=== PATIENT | female | born 2000 | race Caucasian/White ===

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

== ENCOUNTER 2022-10-06 19:49 | Emergency (ER) | payer BC, SELFPAY ==
[2022-10-06 19:50] VITALS: BP 123/65; PULSE 83; RESP 18; TEMP 36.6; O2SAT 100; BMI 27.4
--- NOTE | 2022-10-06 20:10 | CT_ITS ---
PROCEDURE INFORMATION: Exam: CT Abdomen And Pelvis With Contrast Exam date and time: 10/06/2022 8:47 PM Age: 22 years old Clinical indication: Abdominal pain; Additional info: Rlq pain TECHNIQUE: Imaging protocol: Computed tomography of the abdomen and pelvis with contrast. Radiation optimization: All CT scans at this facility use at least one of these dose optimization techniques: automated exposure control; mA and/or kV adjustment per patient size (includes targeted exams where dose is matched to clinical indication); or iterative reconstruction. Contrast material: ISOVUE; Contrast volume: 75 ml; Contrast route: IV; REPORTING DATA: Count of CT and Cardiac NM exams in prior 12 months: This patient has received 0 known CTs and 0 known cardiac nuclear medicine studies in the 12 months prior to the current study. COMPARISON: CR XR PELVIS 1-2V 02/22/2021 9:58 AM FINDINGS: Liver: Normal. No mass. Gallbladder and bile ducts: Normal. No calcified stones. No ductal dilation. Pancreas: Normal. No ductal dilation. Spleen: Normal. No splenomegaly. Adrenal glands: Normal. No mass. Kidneys and ureters: Normal. No hydronephrosis. Stomach and bowel: Unremarkable. No obstruction. No mucosal thickening. Appendix: The appendix is visualized and appears normal Intraperitoneal space: Unremarkable. No free air. No significant fluid collection. Vasculature: Unremarkable. No abdominal aortic aneurysm. Lymph nodes: Unremarkable. No enlarged lymph nodes. Urinary bladder: Unremarkable as visualized. Reproductive: Unremarkable as visualized. Bones/joints: Unremarkable. No acute fracture. Soft tissues: Unremarkable. IMPRESSION: No acute findings.
[2022-10-06 20:15] LABS: Microscopic, Urine URINE MICROSCOPIC (MICROSCOPIC)
[2022-10-06 20:17] LABS: Appearance,Urine CLEAR (Clear); Blood, Urine Negative (Negative); Color,Urine YELLOW (Yellow); Glucose,Urine (UA) Negative (Negative); Ketones,Urine Negative (Negative); Leukocyte Esterase,Urine Negative (Negative); Nitrate,Urine Negative (Negative); PH,Urine 5.5 (5.0-8.5); Protein,Urine TRACE (Negative); Specific Gravity, Urine >= 1.030 (1.005-1.030)
[2022-10-06 20:18] LABS: Bilirubin,Urine 1+ (Negative); Urine Pregnancy, HCG Qual. Negative (Negative)
[2022-10-06 20:31] LABS: Basophils % 0.3 % (0.1-2.0); Eosinophils % 0.6 % (0.1-12.0); Hemoglobin 11.5 g/dL (12.2-16.2); Lymphocytes # 2.3 K/mm3 (0.7-4.5); Mean Corpuscular Hemoglobin 24.6 pg (27.0-31.2); Mean Platelet Volume 7.6 fl (7.4-10.4); Monocytes # 0.3 K/mm3 (0.1-1.0); Monocytes % 4.5 % (1.7-9.3); Neutrophils # 3.9 K/mm3 (1.8-7.8); Neutrophils % 59.6 % (37.0-80.0); Platelet Count 271 K/mm3 (142-424); Red Blood Count 4.68 M/mm3 (4.20-5.40); Red Cell Distribution Width 16.9 % (11.5-17.5); White Blood Count 6.6 K/mm3 (4.5-13.0)
[2022-10-06 20:40] LABS: Alanine Aminotransferase 45 U/L (12-78); Albumin Level 4.5 g/dl (3.5-5.0); Albumin/Globulin Ratio 1.4 (1.1-1.8); Alkaline Phosphatase 140 U/L (38-126); Anion Gap 12.2 mEq/L (5-15); Aspartate Amino Transferase 46 U/L (14-36); Bilirubin,Total 0.3 mg/dl (0.2-1.3); Blood Urea Nitrogen 10 mg/dl (7-17); Calcium 8.8 mg/dl (8.4-10.2); Carbon Dioxide 24 mmol/L (22.0-30.0); Chloride 106 mmol/L (98-107); Creatinine Clearance Estimated 138 mL/min (50-200); Estimated Glomerular Filt Rate 107 ml/min (>60); GFR (African American) 129 ML/MIN (>60); Globulin 3.3 g/dL (1.3-3.2); Glucose 86 mg/dl (74-100); Lipase 71 U/L (23-300); Potassium 4.2 mmoL/L (3.5-5.1); Sodium 138 mmol/L (136-145); Total Protein,Serum 7.8 g/dl (6.3-8.2)
[2022-10-06 20:45] LABS: C-Reactive Protein 8.7 mg/L (0-4)
[2022-10-06 20:56] LABS: Procalcitonin 0.032 ng/mL (0.0-2.0)
[2022-10-06 21:00] VITALS: BP 120/66; PULSE 82; O2SAT 100
[2022-10-06 21:25] LABS: Bacteria,Urine Trace /lpf; WBC,Urine Occasional #/hpf (0-3)
[2022-10-06 21:30] VITALS: BP 115/56; PULSE 85; O2SAT 100
--- NOTE | 2022-10-06 22:00 | HMH.EDABDPAI ---
Discharge Plan Disposition Patient Disposition: Home, Self-Care Prescriptions Prescriptions: New ondansetron HCl 4 mg Tablet 4 mg PO Q8H PRN (Reason: Nausea) Qty: 20 0RF hyoscyamine sulfate [Levsin/SL] 0.125 mg tablet, sublingual 0.125 mg PO Q8H PRN (Reason: dyspepsia) Qty: 10 0RF No Action venlafaxine 37.5 mg capsule,extended release 24hr 37.5 mg PO DAILY etonogestrel-ethinyl estradiol [EluRyng] 0.12-0.015 mg/24 hr ring VAGINAL doxylamine-pyridoxine (vit B6) 1 EACH tablet,delayed release (DR/EC) 1 each PO TID Qty: 20 2RF Referrals Follow up/Referrals: Bubba Bhatt MD [Primary Care Provider] - See instructions Clinical Impressions Clinical Impression: Abdominal pain Instructions Patient Instructions: DI for Acute Abdominal Pain Discharge ED Provider: Matt (ED)Vineet Abdominal Pain HPI General Chief Complaint: Abdominal Pain Stated Complaint: Right side abdominal pain Time Seen by Provider: 10/06/22 21:45 Mode of Arrival: Ambulatory Source of Information: Patient, Significant Other and Medical Record Limitations: No Limitations Description of Symptoms (Recalled from ER Triage Doc. by RN): Pt seen by PCP yesterday with complaints of Right lower abd pain stated she may have early appendicitis. Pt states she has had episodes of vomiting since yesterday. History of Present Illness HPI narrative: pt has ongoing rt sided abd pain with episodes of vomiting - no fever or other c/o complaint: abdominal pain Onset (ago): day(s) Consistency: intermittent Location: RLQ Severity: moderate Associated symptoms: denies other symptoms Related Data Home Medications Medication Instructions Recorded Confirmed venlafaxine 37.5 mg 37.5 mg PO DAILY Depression 04/29/19 03/04/21 capsule,extended release 24 hr etonogestrel 0.12 mg-ethinyl ea vaginal 02/01/21 03/04/21 estradiol 0.015 mg/24 hr vaginal ring (EluRyng) Previous Rx's Medication Instructions Recorded doxylamine 10 mg-pyridoxine (vit 1 each PO TID #20 tabs 04/16/21 B6) 10 mg tablet,delayed release hyoscyamine sulfate 0.125 mg 0.125 mg PO Q8H PRN dyspepsia #10 10/06/22 sublingual tablet (Levsin/SL) tabs ondansetron HCl 4 mg tablet 4 mg PO Q8H PRN Nausea #20 tabs 10/06/22 Allergies Allergy/AdvReac Type Severity Reaction Status Date / Time No Known Allergies Allergy Verified 03/04/21 08:24 PFSH PFS Disclaimer: The information contained in this section may have been updated after the patient was seen, as this information can be updated by other users. Social History Smoking Status: Never smoker alcohol intake: never substance use type: denies use current occupational status: student Travel in the last 8 weeks: None household members: family ROS Obtained: Yes All systems reviewed & no additional complaints except as documented Physical Exam General General appearance: alert Head Head exam: normocephalic Eye Eye exam: Present PERRL and EOMI ENT ENT exam: Present normal oropharynx Neck Neck exam: Present trachea midline Respiratory Respiratory exam: Absent respiratory distress Cardiovascular Cardiovascular exam: Present regular rate Abdominal Exam Abdominal exam: Present soft and tenderness; Absent guarding or rebound Abdominal tenderness: Present RLQ and mild Extremities Exam Extremities exam: Present full ROM Neurological Exam Neurological exam: Present alert, oriented X3 and CN II-XII intact; Absent motor sensory deficit Psychiatric Psychiatric exam: Present normal affect Skin Skin exam: Absent rash Medical Decision Making Medical Records Medical records reviewed: Yes I reviewed the patient's medical records. William Inquiry Pt receiving controlled substance: No Vital Signs: 10/06/22 19:50 10/06/22 21:00 10/06/22 21:30 Temperature 97.8 F Temperature Source Oral Pulse Rate 82 85 Pulse Rate [Right] 83 Respiratory Rate 18 Blood Pressure 1
[2022-10-06 22:12] VITALS: BP 125/54; PULSE 80; RESP 18; TEMP 36.6; O2SAT 98
[2022-10-10 21:08] LABS: Pancreatic Amylase, S 31 U/L (14-55)
== END 2022-10-06 22:14 | disposition home or self-care (01) ==
PROVIDERS: Emergency Provider Emergency Medicine; PCP Family Medicine
DX: R10.31 Right lower quadrant pain (principal)
CPT/HCPCS: 74177; 80053; 81001; 81025; 82150; 83690; 84145; 85025; 86140; 96360; 99284; 99285; Q9967

== ENCOUNTER 2023-02-08 16:34 | Outpatient (CLI) | payer BC, SELFPAY ==
[2023-02-08 17:00] VITALS: BMI 24.3
== END 2023-02-08 17:07 | disposition home or self-care (01) ==
LOC: UTC.OUT 16:35
PROVIDERS: PCP Family Medicine; Visit Provider Nurse Practitioner Family
DX: Z11.1 Encounter for screening for respiratory tuberculosis (principal)
CPT/HCPCS: 86580

== ENCOUNTER 2024-06-30 14:59 | Outpatient (CLI) | payer BC, SELFPAY ==
--- NOTE | 2024-06-30 15:03 | XR_ITS ---
FINAL REPORT CLINICAL HISTORY: RT HAND PAIN..smashed hand while moving chair..shielded FINDINGS: RIGHT HAND Three views demonstrate no acute fracture or dislocation. The visualized joint spaces are normally aligned. The soft tissues are unremarkable. IMPRESSION: No acute bony abnormality. Reviewed, Interpreted and Dictated by Yolie Ramirez MD Transcribed by Karla Tierney Authenticated and [facility]
== END 2024-06-30 23:59 | disposition home or self-care (01) ==
LOC: RAD 15:01
PROVIDERS: PCP Nurse Practitioner Family; Visit Provider Nurse Practitioner Family
DX: M79.641 Pain in right hand (principal); G89.11 Acute pain due to trauma
CPT/HCPCS: 73130

== ENCOUNTER 2024-10-01 17:18 | Emergency (ER) | payer BC, SELFPAY ==
--- OUTSIDE RECORDS SUMMARY | 2024-09-02 06:30 | XMS_ITS ---
Author Organization [facility] [place] Address [address] [facility] [address] [facility] [address] [place] [address] Care Team Providers Care Central Sterile Tech Name Role Phone Dana Haile Primary Care Provider [phone] DANA HAILE Unavailable UnavailVidhi Manzo Unavailable [phone] Allergies No Known Allergies REASON FOR VISIT Medication follow up Medications Medication SIG (Take, Route, Frequency, Duration) Notes Start Date End Date Status busPIRone HCl 5 MG 1 tab(s) orally 2 ti mes a day; Duration: 90 days Active Escitalopram Oxalate 10 MG 1 tab(s) oral ly once a day; Duration: 90 days 06/17/2024 Active Norelgestromin-Eth Estradiol 150-35 MCG/24HR as directed Transdermal Active Social History Tobacco Use: Social History Observation Description Date Details (start date - stop date) Never Smoker NA - NA Tobacco Control (Standard) Question Answer Notes Tobacco use: Nonsmoker Vital Signs Temperature 97.7 degrees Fahrenheit 09/03/19 25 Heart Rate 80 /min 09/02/2024 Blood pressure systolic 104 mm Hg 09/03/19 25 Blood pressure diastolic 72 mm Hg 025 Height 5ft 3in in 09/02/2024 Weight 143 lbs 09/02/2024 BMI 25.33 kg/m2 09/02/2024 Encounters Encounter Location Date Provider Diagnosis [facility] [address] [place] [facility] [address] [place] [address] 09/02/2024 Vidhi Pemberton Depression with anxiety F41.8 Assessments Encounter Date Diagnosis (ICD Code) Assessment Notes Treatment Notes Treatment Clinical Notes Section Notes 09/02/2024 Depression with anxiety (ICD-10 - F41.8) Well controlled on current regimen. No changes made today. Discussed s/s of worsening mood/agitation that warrant FU. RTC in 3-4 months for routine med check or sooner prn Plan Of Treatment Medication Medication Name Sig Start Date Stop Date Notes busPIRone HCl 5 MG 1 tab(s) orally 2 ti mes a day; Duration: 90 days Escitalopram Oxalate 10 MG 1 tab(s) oral ly once a day; Duration: 90 days 06/17/2024 Treatment Notes Assessment Notes Depression with anxiety Well controlled on current regimen. No changes made today. Discussed s/s of worsening mood/agitation that warrant FU. RTC in 3-4 months for routine med check or sooner prn Next Appt Details Follow Up: 3 Months, Reason: Provider Name:Dana Padilla ce, 10/07/2024 10:45:00 AM, [address] [facility] [address] [facility], [address], [place], [address], Progress Notes * Cornel HARRISDOB:2000 (23 yo F)Acc No.[id number]:09/02/2024 Progress Notes Patient: Cornel ESPITIA Provider: Dawson Pemberton APRN :2000 A ge:23 Y S ex:Female Date:09/02/2024 Address:[address] [place] [address] , [id number] Pcp:Dana Haile Subjective: * Chief Complaints: * 1 . Medication follow up. * HPI: P sychology: Denies : high stress. D enies : sleep disturbances. D enies : appetite change. D enies : low energy level. D enies : depressed mood. D enies : feeling overwhelmed. D enies : sad or cry easily. D enies : thoughts of hurting self. Presents for FU on depression and anxiety. Reports mood is stable. Anxiety well controlled. One episode of feeling down and anxious around 2 months ago. Has been fine since. Pleased with current regimen. Feels well and has no concerns today. * ROS: C ARDIOLOGY: Reviewed, No Symptoms Reported: Y es. C ONSTITUTIONAL: no L oss of appetite. n o F ever. D ERMATOLOGY: no R saleem. G ASTROENTEROLOGY: no N ausea. n o V omiting. n o D iarrhea.?no C onstipation. N EUROLOGY: no H eadache. * Medical History: A nxiety, Depression, Anemia, Bicornuate uterus. * Surgical History: C section , Extraction of [place] Teeth , Vaginal with Breech . * Hospitalization/Major Diagno stic Procedure: [facility]- Childbirth Dec, [facility]- Childbirth Jan 07, 2024. * Family History: F ather: alive. M other: alive. P aternal Grand Father: . P aternal Grand Mother: . M aternal Grand Father: alive, Parkinson's Disease. M aternal Grand Mother: alive, Alzheimer's Disease. P aternal uncle: alive. P aternal aunt: alive. M aternal uncle: alive. M aternal aunt: alive. 2 sister(s) . 1 son(s) , 1 daughter(s) . . * Social History: R ecreational drug use: no. Exercise: yes, Walking. Home smoke detector use: yes. Caffeine: yes, frequency: occasional. Alcohol: no. Sexually active: yes. Travel outside [place]: no. Occupation: Employed. Tobacco Control (Standard) T obacco use: N onsmoker. * Medications: T aking Norelgestromin-Eth Estradiol 150-35 MCG/24HR Patch Weekly as directed Transdermal , Taking busPIRone HCl 5 MG Tablet 1 tab(s) orally 2 times a day , Taking Escitalopram Oxalate 10 MG Tablet 1 tab(s) orally once a day , Medication List reviewed and reconciled with the patient * Allergies: N .K.D.A. Objective: * Vitals: N urse: be, Pain: 0, Temp: 97.7, RR: 16, HR: 80, BP: 104/72, Ht: 5ft 3in, Wt: 143, BMI:25.33. * Examination: P sychology: General Appearance: N AD, pleasant. Grooming : a dequate. Eye contact : n ormal. Mood : p leasant. Heart: R egular Rate and Rhythm, no murmur, rubs or gallops. Lungs: L CTAB, No wheezes, crackles or rhonchi, Good air movement,. Abdomen: S oft, NTND, BSNA, No organomegaly or peritoneal signs.. Neurologic Exam: n o focal signs,, normal sensation, strength, Alert and oriented x 3. Assessment: * Assessment: 1. D epression with anxiety - F41.8 (Primary) Plan: * Treatment: * Follow Up: 3 Months * * Sign off status: Completed true * Provider: Dawson Pemberton APRN Date: 09/02/2024 Generated for Tracey noe/Inez/Julio Césaritting on: 10/01/2024 05:32 PM EDT History and Physical Notes * HPI (History of Present Illness) Category Sub-Category Detail Notes Category Not es Psychology depressed mood Presents for FU on depression and anxiety. Reports mood is stable. Anxiety well controlled. One episode of feeling down and anxious around 2 months ago. Has been fine since. Pleased with current regimen. Feels well and has no concerns today low energy level appetite change sleep disturbances high stress feeling overwhelmed sad or cry easily thoughts of hurting self Examination Category Sub-Category Detail Notes Category Not es Psychology Heart: Regular Rate and Rhythm, no murmur, rubs or gallops Lungs: LCTAB, No wheezes, c rackles or rhonchi, Good air movement, Abdomen: Soft, NTND, BSNA, No organomegaly or peritoneal signs. General Appearance: NAD, pleasant Neurologic Exam: no focal signs,, nor mal sensation, strength, Alert and oriented x 3 Grooming : adequate Eye contact : normal Mood : pleasant
--- OUTSIDE RECORDS SUMMARY | 2024-09-04 11:30 | XMS_ITS ---
Author Organization [facility] [place] Address [address] [place] [address] [place] [address] Care Team Providers Care Screwhead Stoner And Polisher Name Role Phone Dana Haile Primary Care Provider DANA HAILE Unavailable Unavaila Dana Delgado Unavailable [phone] Allergies No Known Allergies Results Component Value Reference Range Notes Rapid Strep Reviewed date:09/04/2024 04:47:45 PM Interpretation:Negative Performing Lab: Notes/Report: Negative Rapid screen Negative REASON FOR VISIT headache,chills,sore throat Medications Medication SIG (Take, Route, Frequency, Duration) Notes Start Date End Date Status Loratadine 10 MG 1 tablet Orally Once a day; Duration: 30 days 09/04/2024 Active Amoxicillin 875 MG 1 tablet Orally Twic e a day; Duration: 7 days 09/04/2024 Active busPIRone HCl 5 MG 1 tab(s) [...] Notes Tobacco use: Nonsmoker Vital Signs Temperature 97.8 degrees Fahrenheit 09/05/19 25 Heart Rate 78 /min 09/04/2024 Blood pressure systolic 112 mm Hg 09/05/19 25 Blood pressure diastolic 70 mm Hg 025 Height 5ft 3in in 09/04/2024 Weight 141.6 lbs 09/04/2024 BMI 25.08 kg/m2 09/04/2024 Encounters Encounter Location Date Provider Diagnosis [facility] [address] [place] [address] [place] [address] 09/04/2024 Dana Solano Sore throat J02.9 and Viral URI J06.9 Assessments Encounter Date Diagnosis (ICD Code) Assessment Notes Treatment Notes Treatment Clinical Notes Section Notes 09/04/2024 Sore throat (ICD-10 - J02.9) 09/04/2024 Viral URI (ICD-10 - J06.9) Reassurance. Discussed the etiology & expected course of a viral URI and discussed the rationale for not prescribing antibiotics. With patient leaving for vacation in two days prescribed Amoxicillin for her to have if her sore throat is not feeling better in 5 days. Continue supportive care with PRN antipyretics, OTC cough/cold meds, nasal saline rinses/Neti pot with distilled water, salt water gargles, cough drops, and humidifier. Encourage PO hydration. Patient must be fever and vomit free x 24 hours without fever reducing medications before going back to work. Discussed the signs and symptoms of worsening condition and need for reassessment in clinic or ED. Keep previously scheduled physical exam or f/u sooner PRN. Patient/family voice understanding and are agreeable to this plan. Plan Of Treatment Medication Medication Name Sig Start Date Stop Date Notes Loratadine 10 MG 1 tablet Orally Once a day; Duration: 30 days 09/04/2024 Amoxicillin 875 MG 1 tablet Orally Twic e a day; Duration: 7 days 09/04/2024 Treatment Notes Assessment Notes Viral URI Reassurance. Discuss ed the etiology & expected course of a viral URI and discussed the rationale for not prescribing antibiotics. With patient leaving for vacation in two days prescribed Amoxicillin for her to have if her sore throat is not feeling better in 5 days. Continue supportive care with PRN antipyretics, OTC cough/cold meds, nasal saline rinses/Neti pot with distilled water, salt water gargles, cough drops, and humidifier. Encourage PO hydration. Patient must be fever and vomit free x 24 hours without fever reducing medications before going back to work. Discussed the signs and symptoms of worsening condition and need for reassessment in clinic or ED. Keep previously scheduled physical exam or f/u sooner PRN. Patient/family voice understanding and are agreeable to this plan. Next Appt Details Follow Up: prn, Reason: Provider Name:Dana Padilla ce, 10/07/2024 10:45:00 AM, [address] [facility] [address], [address], [place], [address], Progress Notes * Cornel HARRISDOB:2000 (23 yo F)Acc No.[id number]:09/04/2024 Progress Notes Patient: Cornel ESPITIA Provider: MELY Murrell :2000 A ge:23 Y S ex:Female Date:09/04/2024 Address:[address] [place] [address] [address] [place], [id number] Pcp:Dana Haile Subjective: * Chief Complaints: * 1 . Headache,chills,sore throat. * HPI: g en: Patient presents with headaches, chills, sore throat, intermittent right ear pain, fatigue, malaise starting 2 days ago. She reports having rhinorrhea and intermittent watery eyes x 1 month. S he denies cough, fevers, n/v/d, abd pain, sneezing, or dysuria. She has had a decreased appetite, but is able to drink fluids but it is painful. No known sick contacts. * ROS: D ERMATOLOGY: no R saleem. p er hpi. * Medical History: A nxiety, Depression, Anemia, Bicornuate uterus. * Social History: R ecreational drug use: [...] N .K.D.A. Objective: * Vitals: N urse: jl, Pain: 6-throat, Temp: 97.8, RR: 16, HR: 78, BP: 112/70, Ht: 5ft 3in, Wt: 141.6, BMI:25.08. * Examination: G eneral Examination: General P leasant and Cooperative, NAD on RA,. Oral cavity: M oist membranes. Chest: n ormal shape and expansion. Heart: R RR, No m/r/g, No edema,. HEENT: e rythematous oropharynx, tonsils 2+ without exudate, TM's normal, , normal mastoids bilaterally without edema/erythema, frontal and max sinuses not ttp. Lungs: L ungs clear, No wheezes, crackles or rhonchi, Good air movement,. Abdomen: S oft, non-tender, No organomegaly or peritoneal signs.. Neurologic Exam: n o focal signs neurological deficits.? Skin: w ithout acute rashes. Back: n ormal,. neck s upple, , shotty 0.5 cm ant cerv lymph nodes palpated [place] in tonsillar regions bilaterally. Psych N ormal Mood/Affect. Assessment: * Assessment: 1. V iral URI - J06.9 (Primary) 2 . S ore throat - J02.9 Plan: * Treatment: 2. S ore throat L AB: Rapid Strep (Collection Date & Time - 09/04/2024) N egative Value Reference Range R apid screen Negative * Dana Solano 09/04/2024 04:47:42 PM EDT > * Procedure Codes: 8 7880 RAPID STREP, Modifiers: QW * Follow Up: p rn * * Sign off status: Completed true * Provider: MELY Murrell Date: 0 09/04/2024 Generated for Printi ng/Fajuvenalg/eTransmitting on: 0 10/01/2024 05:33 PM EDT History and Physical Notes * HPI (History of Present Illness) Category Sub-Category Detail Notes Category Not es gen Patient presents with headaches, chills, sore throat, intermittent right ear pain, fatigue, malaise starting 2 days ago. She reports having rhinorrhea and intermittent watery eyes x 1 month. She denies cough, fevers, n/v/d, abd pain, sneezing, or dysuria. She has had a decreased appetite, but is able to drink fluids but it is painful. No known sick contacts. Examination Category Sub-Category Detail Notes Category Not es General Examination HEENT: erythematous oropharynx, tonsils 2+ without exudate, TM's normal, , normal mastoids bilaterally without edema/erythema, frontal and max sinuses not ttp Heart: RRR, No m/r/g, No ed jerardo, Lungs: Lungs clear, No whee zes, crackles or rhonchi, Good air movement, Abdomen: Soft, non-tender, No organomegaly or peritoneal signs. Skin: without acute rashes Neurologic Exam: no focal signs neuro logical deficits Oral cavity: Moist membranes Back: normal, Chest: normal shape and exp ansion neck supple, , shotty 0.5 cm ant cerv lymph nodes palpated [place] in tonsillar regions bilaterally General Pleasant and Coopera tive, NAD on RA, Psych Normal Mood/Affect
--- OUTSIDE RECORDS SUMMARY | 2024-09-25 10:40 | XMS_ITS | Encounter Summary ---
Author Organization Healthcare Address [address] [place] [address] Care Team Providers Care Marker Shipments Name Role Phone Dana Haile STENOTYPE OPERATOR Primary Care Provider [phone] Reason for Visit * Reason Comments Vaginal Bleeding BCPt denies pain. Pt states 2 menses rogers month and painful. Pt states thoughts of harming self. Pt states family issues, work, and health has pt feeling more anxious, overwhelmed especially at night. Pt states harming self is worse at night when alone thinking about everything that happening. Pt states cutting self with razor and burned self with mobile practice lead last night to relieve pain she's feeling. Encounter Details Date Type Department Care Team (Late st Contact Info) Description 09/25/2024 10:40 AM EDT Office Visit Obstetrics & Gynecology [address] [place] [address] Emma Carter MD [address] [place] [address] Irregular menstruation, unspecified (Primary Dx); Encounter for surveillance of transdermal patch hormonal contraceptive device; Severe episode of recurrent major depressive disorder, without psychotic features (CMS/HCC); Nonsuicidal self-injury (CMS/HCC); Passive suicidal ideations Social History Tobacco Use Types Packs/Day Years Used Date Smoking Tobacco: Never Smokeless Tobacco: Never Alcohol Use Standard Drinks/Week Comments Never 0 (1 standard drink = 0.6 oz pur e alcohol) PHQ-2 Answer Date Recorded Patient Health Questionnaire-2 Score 4 09/26/2024 [place] Depression Scale Answer Date Recorded [place] Depression Scale Total 0 02/20/2024 The thought of harming myself has occurred to me . Never 02/20/2024 PHQ-9 Answer Date Recorded Patient Health Questionnaire-9 Score 18 09/26/2024 CAGE ASSESSMENT Answer Date Recorded Cage unable to access Not on file 09/26/2024 Maximum number of drinks you had on a given occasion in the last month? 1 drink 09/26/2024 How many alcoholic Beverages do you typically drink in a week? 0 - 7 per week 09/26/2024 Have you ever felt you should CUT down on your d rinking? 0 09/26/2024 Have you been ANNOYED by peo ple criticizing your drinking? 0 09/26/2024 Have you felt GUILTY about your drinking? 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 0 09/26/2024 CAGE Questionnaire Score 0 025 Comments No Sex and Gender Information Value Date Recorded Sex Assigned at Not on file Legal Sex Female 10:49 AM EDT Gender Identity Not on file Sexual Orientation Not on file documented as of this encounter Last Filed Vital Signs Vital Sign Reading Time Taken Comments Blood Pressure 110/69 09/25/2024 11:29 AM EDT Pulse 87 09/25/2024 11:29 AM EDT Temperature 36.7 C (98.1 F) 09/25/2024 11:29 AM EDT Respiratory Rate - - Oxygen Saturation 98% 09/25/2024 11:29 AM EDT Inhaled Oxygen Concentration - - Weight 63 kg (138 lb 14.2 oz) 09/25/2024 11:29 A M EDT Height 157.5 cm (5' 2 ) 09/25/2024 11:29 AM EDT Body Mass Index 25.4 09/25/2024 11:29 AM EDT documented in this encounter Functional Status * Over the past 2 weeks, how often have you been bothered by any of the following problems? Question Answer Date of Assessment Author Little interest or pleasure in doing things More than half the days 09/25/2024 11:48 AM EDT Sarai Cronin Feeling down, depressed, or hopeless Several days 09/25/2024 11:48 AM EDT Sarai Cronin Patient Health Questionnaire-2 Score 3 09/25/2024 11:48 AM Sarai Cartwright * Question Answer Date of Assessment Author Trouble falling or staying asleep, or sleeping too much Nearly every day 09/25/2024 11:48 AM Sarai Cartwright Feeling tired or having little energy Nearly every day 09/25/2024 11:48 AM Sarai Cartwright Poor appetite or overeating Nearly every day 11:48 AM Sarai Cartwright Feeling bad about yourself - or that you are a failure or have let yourself or your family down Nearly every day 09/25/2024 11:48 AM Sarai Cartwright Trouble concentrating on things, such as reading the newspaper or watching television Several days 09/25/2024 11:48 AM Sarai Cartwright Moving or speaking so slowly that other people could have noticed? Or the opposite - being so fidgety or restless that you have been moving around a lot more than usual. Several days 09/25/2024 11:48 AM Sarai Cartwright Thoughts that you would be better off or hurting yourself in some way Nearly every day 09/25/2024 11:48 AM Sarai Cartwright Patient Health Questionnaire-9 Score 20 09/25/2024 11:48 AM Sarai Cartwright * If you checked off any problems on this questionnaire so far, Question Answer Date of Assessment Author How difficult have these problems made it for you to do your work, take care of things at home, or get along with other people? Not difficult at all 09/25/2024 11:48 AM Sarai Carwtright documented as of this encounter Miscellaneous Notes * Progress Notes - Emma Carter MD - 09/25/2024 10:40 AM EDT Gynecology Progress Note Chief Complaint Patient presents with Vaginal Bleeding BC Pt denies pain. Pt states 2 menses rogers month and painful. Pt states thoughts of harming self. Pt states family issues, work, and health has pt feeling more anxious, overwhelmed especially at night. Pt states harming self is worse at night when alone thinking about everything that happening. Pt states cutting self with razor and burned self with mobile practice lead last night to relieve pain she's feeling. Subjective History of Present Illness: Cornel Fleming is a 24 y.o. who presents for f/up after starting Xulane patch In July [address] Alexis. At that time, had heavy bleeding, dysmenorrhea. Started Xulane, and for 2 months, had no breakthrough bleeding & improved menses. However in August, had bleeding starting while on the 2nd week of patch 09/10 - she took patch off & bleeding worsened, heavier, quarter-sized clots. Lasted 4 days. Repeat bleeding episode 09/23 x2 days, mobile practice lead flow but had moderate cramping. No longer bleeding. Has not replaced patch since 09/10. Interested in continuing patch. Separately, on screening questions today, Cornel reports thoughts of hurting herself and significant depressed mood. On further discussion, she reports that she has had significant family stress, financial stress over the past few weeks that has contributed to feelings of worthlessness and feelingsthat her children would be better off without her around. She also admits she has been cutting herself to distract from the emotional distress she feels and burning herself was a mobile practice lead to distract from these feelings. Most recently, she did this last night, and her came home from work early to be with her. He works graduate engineer and is here with her today. She denies any active desire to end her life, or attempts or plans to end her life. She lives with her partner who is supportive, and her children. Her grandparents live upstairs fromthem, and they are in failing health. She is the primary caregiver, and there decline over the pastfew weeks has been a significant stressor. 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 She is stressed about the rising cost of food, utilities, living expenses and calcium to stop worrying about these things. She sleeps poorly, about 7 hours a night, and takes more than an hour to fall asleep frequently. She has never taken anything to help her sleep. She wakes up frequently during the night and does not know why she wakes up. She does not experience significant dreams. She has been taking Lexapro 10 mg and BuSpar twice daily. These are prescribed and managed by her [facility]. Last saw them at the beginning of August, when she felt stable, and mood was improving. At that time she states they increased her Lexapro to 10 mg daily. She does not feel like the BuSpar helps very much with anxiety. She finds hamilton in spending time with her kids and her family. The patient???s medical, surgical, family, social history were reviewed, as well as current medications and allergies. Review of Systems Constitutional: Negative. HENT: Negative. Eyes: Negative. Respiratory: Negative. Cardiovascular: Negative. Gastrointestinal: Negative for abdominal pain, constipation, diarrhea, nausea and vomiting. Endocrine: Negative. Genitourinary: Positive for menstrual problem and pelvic pain. Negative for difficulty urinating, dysuria, vaginal bleeding, vaginal discharge and vaginal pain. Neurological: Negative. Psychiatric/Behavioral: Positive for dysphoric mood, self-injury, sleep disturbance and suicidal ideas. Negative for agitation, confusion and hallucinations. The patient is nervous/anxious. The patient is not hyperactive. Current Outpatient Medications Medication Instructions busPIRone (Buspar) 5 MG tablet busPIRone (BUSPAR) 7.5 mg, 2 times daily escitalopram (Lexapro) 10 MG tablet Every 24 hours norelgestromin-ethinyl estradiol (Xulane) 150-35 MCG/24HR Apply 1 patch each week for 3 weeks, thenremove for 1 week. Objective BP 110/69 Pulse 87 Temp 36.7 ??C (98.1 ??F) Ht 1.575 m (5' 2 ) Wt 63 kg (138 lb 14.2 oz) LMP 2024 Physical Exam: Physical Exam Constitutional: General: She is not in acute distress. Appearance: Normal appearance. She is not ill-appearing. Genitourinary: Genitourinary Comments: Deferred. HENT: Head: Normocephalic and atraumatic. Nose: Nose normal. Mouth/Throat: Mouth: Mucous membranes are moist. Eyes: Extraocular Movements: Extraocular movements intact. Cardiovascular: Rate and Rhythm: Normal rate. Pulmonary: Effort: Pulmonary effort is normal. No respiratory distress. Abdominal: General: There is no distension. Palpations: Abdomen is soft. Musculoskeletal: General: Normal range of motion. Cervical back: Normal range of motion. Neurological: General: No focal deficit present. Mental Status: She is alert and oriented to person, place, and time. Skin: General: Skin is warm and dry. Psychiatric: Comments: Mood significantly depressed. Affect blunted. Makes eye contact but responds with minimalwording. Reluctant to disclose details of her self-injury. Poor judgment, poor insight. Vitals and nursing note reviewed. Labs & Imaging: N/a Assessment/Plan Cornel Fleming is a 24 y.o. (SVDx1, CS x1) with menstrual irregularity & dysmenorrhea presenting for follow up of Xulane patch initiation, now with active/recent self-injury and suicidal ideation. Diagnosis Plan 1. Irregular menstruation, unspecified 2. Encounter for surveillance of transdermal patch hormonal contraceptive device 3. Severe episode of recurrent major depressive disorder, without psychotic features (CMS/HCC) 4. Nonsuicidal self-injury (CMS/HCC) 5. 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 Advised to start next patch on a convenient day and continue patch if starting to bleed rather than remove patch -- will f/up in 2 months regarding menses. PSYCH: - recent self-injury with cutting in nonvisible areas, burning with cigarette mobile practice lead. - denies active SI/SA/plan -- has passive SI frequently over past few weeks - at last PCP visit 09/07, had stable mood -- since then, grandparents' health, her financial situation, overwhelm have all contributed to mood worsening. - strongly recommend patient be seen for urgent med adjustment and stabilization today if possible at [facility] -- patient reluctant as she has planned a day with her children this afternoon. Partner works graduate engineer, but could take off tonight if needed. She also has family she trusts who she will asked to stay with her tonight. She is agreeable to calling [facility] after this appointment and presenting to [facility] in the morning. As no active SI or plan, this is an appropriate compromise. - reviewed precautions for self-injury, active SI or HI: Call 911 and a trusted loved one. Patient expressed understanding. RTC 2 months for menstrual eval/Xulane management Time Spent: I personally spent a total of 45 minutes on this encounter. This time includes face to face with patient, counseling and discussion and/or coordination of care. Emma Carter MD Obstetrics & Gynecology documented in this encounter Plan of Treatment Upcoming Encounters Date Type Department Care Team (Late st Contact Info) Description 12/10/2024 2:20 PM EDT Office Visit Obstetrics & Gynecology [address] [place] [address] Emma Carter MD [address] [place] [address] documented as of this encounter Visit Diagnoses Diagnosis Irregular menstruation, unspecified- Primary Encounter for surveillance of transdermal patch hormonal contraceptive device Severe episode of recurrent major depressive disorder, without psychotic features (CMS/HCC) Nonsuicidal self-injury (CMS/HCC) Passive suicidal ideations documented in this encounter Additional Health Concerns Assessment Noted Time PHQ-9 Depression Total Score: 20 025 11:48 AM EDT A fall risk assessment has been complete d for the patient 09/25/2024 11:33 AM EDT A Body Mass Index follow-up plan has been documented for the patient 09/25/2024 7:07 PM EDT documented as of this encounter Care Teams Marker Shipments Relationship Specialty Start Date End Date Dana Haile APRN [address] [address] PCP - General 09/23/24 documented as of this encounter
--- OUTSIDE RECORDS SUMMARY | 2024-09-26 15:13 | XMS_ITS | Encounter Summary ---
Author Organization 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 Name Role Phone Dana Haile MARILEE Primary Care Provider [phone] Reason for Visit * Reason Comments Suicidal Encounter Details Date Type Department Care Team (Late st Contact Info) Description 09/26/2024 3:13 PM EDT - 09/26/2024 9:30 PM EDT Hospital Encounter [facility] [address] [place] [address] Sachin Manuel MD [address] [place] [address] Depressive disorder (Primary Dx) Discharge Disposition: Home or Self Care Social History Tobacco Use Types Packs/Day Years Used Date Smoking Tobacco: Never Smokeless Tobacco: Never Alcohol Use Standard Drinks/Week Comments Yes 0 (1 standard drink = 0.6 oz pur e alcohol) PHQ-2 Answer Date Recorded Patient Health Questionnaire-2 Score 4 09/26/2024 Verplanck Depression Scale Answer Date Recorded Verplanck Depression Scale Total 0 02/20/2024 The thought [...] drink first t enedina in the morning ([facility] [employer]) to steady your nerves or to get [...] Sign Reading Time Taken Comments Blood Pressure 97/61 09/26/2024 9:10 PM EDT Pulse 68 09/26/2024 9:14 PM EDT Temperature 36.4 C (97.5 F) 09/26/2024 9:14 PM EDT Respiratory Rate - - Oxygen Saturation 96% 09/26/2024 9:10 PM EDT Inhaled Oxygen Concentration - - Weight 63 kg (138 lb 12.8 oz) 09/26/2024 3:11 PM EDT Height 160 cm (5' 3 ) 09/26/2024 3:11 PM EDT Body Mass Index 24.59 09/26/2024 3:11 PM EDT documented in this encounter Functional Status * Over the past 2 weeks, how often have you been bothered by any of the following problems? Question Answer Date of Assessment Author Patient Health Questionnaire-2 Score 4 09/01 3:13 PM EDT Pola Narayanan RN * Calculated C-SSRS Risk Score (Lifetime/Recent) Answer Date of Assessment Author Low Risk 09/26/2024 5:55 PM EDT Se doris Narayanan RN * If you checked off any problems on this questionnaire, Question Answer Date of Assessment Author How difficult have these problems made it for you to do your work, take care of things at home, or get along with other people? Very difficult 09/26/2024 3:13 PM EDT Pola Narayanan R N * Over the past 2 weeks, how often have you been bothered by any of the following problems? Question Answer Date of Assessment Author Little interest or pleasure in doing things More than half the days 09/26/2024 3:13 PM EDT Pola Narayanan RN Feeling down, depressed, or hopeless More than half the days 09/26/2024 3:13 PM EDT Pola Narayanan RN Trouble falling or staying asleep, or sleeping too much More than half the days 09/26/2024 3:13 PM EDT Pola Narayanan RN Feeling tired or having little energy More than half the days 09/26/2024 3:13 PM EDT Pola Narayanan RN Poor appetite or overeating More than half the days 09/26/2024 3:13 PM EDT Pola Narayanan RN Feeling bad about yourself - or that you are a failure or have let yourself or your family down More than half the days 09/26/2024 3:13 PM EDT Pola Narayanan RN Trouble concentrating on things, such as reading the newspaper or watching television More than half the days 09/26/2024 3:13 PM EDT Pola Narayanan RN Moving or speaking so slowly that other people could have noticed? Or the opposite - being so fidgety or restless that you have been moving around a lot more than usual. More than half the days 09/26/2024 3:13 PM EDT Pola Narayanan RN Thoughts that you would be better off or hurting yourself in some way More than half the days 09/26/2024 3:13 PM EDT Pola Narayanan RN Patient Health Questionnaire-9 Score 18 09/26/2024 3:13 PM EDT Pola Narayanan RN * Question Answer Date of Assessment Author 1. Wish to be (Past 1 Month) Yes 025 5:55 PM EDT Pola Narayanan RN 2. Non-Specific Active Suici cathi Thoughts (Past 1 Month) No 09/26/2024 5:55 PM EDT Pola Narayanan RN 6. Suicidal Behavior (Lifetime) No 5:55 PM EDT Pola Narayanan RN documented as of this encounter Discharge Instructions * Discharge Instructions* Ivelisse Childress PA - 09/26/2024 8:38 PM EDT You are being discharged to Home. You should keep all scheduled follow up outpatient appointments for continued care. [facility] app[facility] on 10/02 at 11am We strongly encourage you to keep all future appointments and advised to take all prescribed medications as instructed. Discontinue the Celexa and start Lexapro and Vistaril as prescribed. You should abstain from all mood-altering substances except those prescribed by a licensed guide. Your primary supports should monitor you for evidence of substance use and should alert your outpatient provider if use is suspected or confirmed. Your safety plan includes instructions to return to [facility] or the nearest ER if you become suicidal, homicidal, manic, psychotic, or develop any other urgent/emergent symptoms, or to call 988. Veterans call 988 then Press 1. You voiced an understanding of the safety plan., but are welcome to ask questions at any time documented in this encounter Medications at Time of Discharge busPIRone (Buspar) 5 MG tablet 05/20/2024 busPIRone (Buspar) 7.5 MG tablet Take 1 tablet (7.5 mg) by mouth 2 (two) times a day. 06/04/2023 escitalopram (Lexapro) 20 MG tablet Take 1 tablet by mouth daily. 30 tablet 09/26/2024 hydrOXYzine pamoate (Vistaril) 25 MG capsule Take 1 capsule by mouth every 6 hours as needed for itching for up to 10 days. 30 capsule 09/26/2024 norelgestromin-ethi nyl estradiol (Xulane) 150-35 MCG/24HRIndications :Encounter for initial prescription of transdermal patch hormonal contraceptive device Apply 1 patch each week for 3 weeks, then remove for 1 week. 3 patch 12 07/03/2024 documented as of this encounter Miscellaneous Notes * ED Notes - Jimi Penny RN - 09/26/2024 9:30 PM EDT Patient discharged to self care via private vehicle. Patient given AVS, education, and belongings returned and signed for. Patient verbalized understanding of education. Alert and oriented, ambulating independently, and NAD noted. Jimi Penny RN 09/26/[id number] * Veronica Tala Montague RN - 09/26/2024 8:51 PM EDT Images from the original note were not included. [id number] Depression and Suicide Most people who by suicide have a mental health issue. It may be a depressive or substance abuse disorder. They may feel lonely, depressed, or isolated. They may have had a traumatic life experience. Many of the warning signs of suicidal feelings are also signs of depression. Warning signs of suicide People at risk of suicide may show signs such as: ? Changes in eating and sleep habits. ? A loss of interest in usual activities. ? Pulling away from friends and family members. ? Acting out behaviors. ? Running away. ? Alcohol and drug use. ? Not caring about personal appearance. ? Excessive risk taking. ? A fixation on and dying. ? Increased physical complaints linked to emotional distress, like stomachaches, headaches, and extreme tiredness. ? Loss of interest in work, school, and community. ? Feelings of boredom. ? Trouble concentrating. ? Feelings of wanting to . ? A lack of response to praise. A person is at risk if they show signs of plans to by suicide. They may: ? Give away favorite possessions and throw away important belongings. ? Become suddenly cheerful after a period of depression. ? Express bizarre thoughts. ? Say I want to kill myself. ? Say I'm going to commit suicide. ? Say I won't be a problem much longer. ? Say If anything happens to me, I want you to know .? . ? Write one or more suicide notes. The warning signs of suicide may seem like other health problems. Always talk with a doctor for a diagnosis. What action should you take right away? Take threats of suicide as a cry for help. Always take statements of suicidal feelings, thoughts, behaviors, or plans very seriously. Any person who expresses thoughts of suicide needs help right away. If someone is threatening suicide: ? Call or text 988 or [phone] ([phone]) right away. When people call or text 988, they will be connected to trained counselors who are part of the National Suicide Prevention Lifeline network. An online chat choice is also available. This service is free and available 23/10. Or take the person to the nearest emergency room. Or contact their mental health provider. ? Take the person seriously. ? Don't leave the person alone. ? Involve other people. Contact friends and family members. ? Express concern. ? Listen attentively. ? Ask direct questions. ? Acknowledge the person's feelings. ? Offer support. ? Don't promise confidentiality. ? Keep possibly harmful objects hidden. This includes weapons, firearms, and medicines. ? Prepare for the person to need to stay in the hospital, if the doctor advises this. Last Reviewed Date: 2024 00:00:00 ?? [id number] [employer]. All rights reserved. This information is not intended as a substitute for professional medical care. Always follow your healthcare professional's instructions. * Veronica [facility] - Tala Lugo RN - 09/26/2024 8:51 PM EDT Images from the original note were not included. [id number] Depression Depression is a common mental health problem. It's not just a state of being unhappy or sad. It's aserious illness. It is a type of mood disorder. It affects the way a person feels and thinks. And it affects how they handle daily activities. These include working, sleeping, and eating. The cause seems to be linked to a change in chemicals that send signals in the brain. These things increase a person?s risk for depression: ? A family history of depression, alcoholism, or suicide ? Chronic mental or physical illness ? Chronic pain ? Migraine headaches ? High emotional stress Depression may be easier to see in others. You may have a hard time seeing it in yourself. It can show in many physical and emotional ways. These include: ? Loss of appetite. ? Overeating. ? Not being able to sleep. ? Sleeping too much. ? A lot of tiredness not linked to physical activity. ? Restlessness or irritability. ? Slowness of movement or speech. ? Feeling sad or withdrawn. ? Loss of interest in things you once enjoyed. ? Trouble concentrating, remembering, or making decisions. ? Thoughts of harming or killing yourself, or thoughts that life is not worth living. ? Low self-esteem. The treatment for depression may include medicine or psychotherapy, or both. The goal of treatment is to reduce or get rid of your symptoms and restore the quality of your life. Antidepressant medicines can ease symptoms. They can also make it easier for you to do daily tasks.Some people start feeling better within 1 to 2 weeks after using these medicines. But it can take 6to 12 weeks to get their full effect. Psychotherapy, or talk therapy, can offer emotional support. It can also help you understand and manage things that may be causing the depression. It can occur between you and a counselor. Or it can happen in a group setting. Some people prefer virtual counseling, or telehealth, to in-person meetings. In addition to medicine and psychotherapy, physical activity and exercise can ease depression. Talkwith your health care provider about where to start. Home care ? Ongoing care and support help people manage this illness. Find a health care provider and a counselor who meet your needs. Get help when you feel like you may be getting ill. ? Be kind to yourself. Make it a point to do things that you enjoy. This may be gardening, walking in nature, or going to a movie. Reward yourself for small successes. ? Take care of your body. Eat a balanced diet. Eat foods low in saturated fat. Eat lots of fruits and vegetables. Exercise at least 3 times a week for 30 minutes. Even mild to moderate exercise like brisk walking can help you feel better. ? Take medicine as prescribed. Don't stop your medicine or change the dose unless you talk with your health care provider. ? Once you start taking medicine, expect your symptoms to get better slowly. Depression will lift over time. It does not get better right away. Ask your health care provider how long it will take foryour medicine to start working. ? Don't share your medicine. Don?t use someone else's medicine. ? Tell your health care providers about all the medicines you take. This includes prescription and fwkl-efe-skauisp medicines. It also includes vitamins and herbal supplements. Some supplements can interact with medicines. They can cause dangerous side effects. Talk to your pharmacist if you have questions about your medicines. ? Don't make major changes until you feel better. This includes things like quitting your job, moving, and starting or ending a relationship. ? Don't drink alcohol. It can make depression worse. ? Talk with your family and trusted friends about your feelings and thoughts. Ask them to help you notice behavior changes early. You can then get help. And your medicine can be changed, if needed. ? Talk with your health care provider if you are not getting better. They may change your medicine or have you try another treatment. Follow-up care Follow up with your health care provider as advised. Crisis care Call 988 if you have thoughts of harming yourself or others. When you call or text 988, you will beconnected to trained crisis counselors. An online chat choice is also available. [employer] is free and available 23/10. 988 counselors will work with 911 to help you get the care you need. Call 911 if you: ? Have trouble breathing. ? Are very confused. ? Feel very drowsy or have trouble waking up. ? Faint. ? Have new chest pain that becomes more severe, lasts longer, or spreads into your shoulder, arm, neck, jaw, or back. When to get medical care Contact your health care provider right away if: ? Your symptoms get worse. ? You have extreme depression, fear, anxiety, or anger toward yourself or others. ? You feel out of control. ? You feel that you may try to harm yourself or others. ? You hear voices other people don't hear. ? You see things other people don't see. ? You don't sleep or eat for 3 days in a row. ? Your friends or family express concern over your behavior and ask you to get help. Last Reviewed Date: 2024 00:00:00 ?? [id number] [employer]. All rights reserved. This information is not intended as a substitute for professional medical care. Always follow your healthcare professional's instructions. * Discharge Summary - Ivelisse Childress PA - 09/26/2024 8:38 PM EDT Images from the original note were not included. [facility] Discharge Summary Hospitalization Admit Date/Time: 09/26/2024 3:13 PM Admitting Attending: Discharge Date: 09/26/2024 Discharge Attending Physician: Sachin Manuel MD PCP name and Address: LazaraMason ambrosioah Latesha, RECONCILER [address] [facility] [address] [facility] [address] / [place] [address] Chief Concern, Brief History of Present Illness, and Hospital Course Per intake, Cornel Fleming is a 24 y.o. female presenting with anxiety, depression and suicidal ideation. She reports since having a c section 8 months ago she hates her body and feels like she is under a lot of stress related to being a single mom. She states she has been overwhelmed trying to carefor her 2 children and will often cut her thigh or burn herself with a hole digger truck driver to cope with anxietyand worry. She denies current SI/HI/AVH and paranoia, but reports thought of suicide early in the day today. She last cut and burned herself yesterday, however she has no raymond from cuts or mueller on her thighs. She denies any substance use. She has been following up with her OBGYN and family doctorwho have started her on Celexa but she does not believe it is working. She presents to [facility] and requests therapy. Pt currently denies SI, HI, AVH and intrusive thoughts on wanting to harm the children. Collateral was obtain from her mother La. : Mother stated there is no weapons in the household,and the pt would be safe to return home. Pt's mother would pick her up upon discharge as well as stay with the pt. The kids are with their father until Sunday. Pt will continue her new prescription of Lexapro 20mg and Vistaril 25mg as a PRN for anxiety. Pt has an appointment with Hernandez Hummel on 10/02 at 11am. Plan of care reviewed and discussed with Dr. Manuel; agreeable with plan. Medication List . * busPIRone 7.5 MG tablet Commonly known as: Buspar Take 1 tablet (7.5 mg) by mouth 2 (two) times a day. * busPIRone 5 MG tablet Commonly known as: Buspar escitalopram 10 MG tablet Commonly known as: Lexapro 1 (one) time each day at the same time. norelgestromin-ethinyl estradiol 150-35 MCG/24HR Commonly known as: Xulane Apply 1 patch each week for 3 weeks, then remove for 1 week. * This list has 2 medication(s) that are the same as other medications prescribed for you. Read thedirections carefully, and ask your doctor or other care provider to review them with you. Discharge Diagnosis Final diagnoses: [F32.A] Depressive disorder Post Discharge Instructions Follow-Up / Post Discharge Instructions Discharge Instructions You are being discharged to Home. You should keep all scheduled follow up outpatient appointments for continued care. [facility] appt on 10/02 at 11am We strongly encourage you to keep all future appointments and advised to take all prescribed medications as instructed. Discontinue the Celexa and start Lexapro and Vistaril as prescribed. You should abstain from all mood-altering substances except those prescribed by a licensed guide. Your primary supports should monitor you for evidence of substance use and should alert your outpatient provider if use is suspected or confirmed. Your safety plan includes instructions to return to [facility] or the nearest ER if you become suicidal, homicidal, manic, psychotic, or develop any other urgent/emergent symptoms, or to call 988. Veterans call 988 then Press 1. You voiced an understanding of the safety plan., but are welcome to ask questions at any time Disposition Observation Provider Care Team: CORY Moon [[id number]] Are they the primary team?: Yes [1] Outpatient Follow-Up Future Appointments Date Time Provider Department Center 12/10/2024 2:20 PM Emma Carter MD [facility] Test Results At Discharge Recent Results (from the past 24 hours) CBC w/diff Collection Time: 09/26/24 3:51 PM Result Value Ref Range WBC Count 4.27 3.70 - 10.30 10*3/uL RBC Count 4.48 3.90 - 5.20 10*6/uL HGB 9.7 (L) 11.2 - 15.7 g/dL HCT 33.0 (L) 34.0 - 45.0 % Platelet Count 205 155 - 369 10*3/uL MCV 74 (L) 79 - 98 fL MCH 21.7 (L) 26.0 - 32.0 pg MCHC 29.4 (L) 30.7 - 35.5 g/dL RDW 17.7 (H) 11.5 - 14.5 % MPV 11.4 8.8 - 12.5 fL nRBC 0.0 <=0.0 per 100 WBCs Differential Type Automated Neutrophils % 40 % Lymphocytes % 50 % Monocytes % 7 % Eosinophils % 2 % Basophils % 1 % Immature Granulocytes % 0 % Neutrophils Absolute 1.72 1.60 - 6.10 10*3/uL Lymphocytes Absolute 2.14 1.20 - 3.90 10*3/uL Monocytes Absolute 0.31 0.30 - 0.90 10*3/uL Eosinophils Absolute 0.08 0.00 - 0.50 10*3/uL Basophils Absolute 0.02 0.00 - 0.10 10*3/uL Immature Granulocytes Absolute 0.00 0.00 - 0.06 10*3/uL Hepatitis B Surface Antigen - [facility] Collection Time: 09/26/24 3:51 PM Result Value Ref Range Hepatitis B Surf Antigen Negative Negative Hepatitis C Antibody with Reflex to HCV Quant PCR - [facility] Collection Time: 09/26/24 3:51 PM Result Value Ref Range Hepatitis C Antibody Negative Negative Thyroid Stimulating Hormone, Plasma Collection Time: 09/26/24 3:51 PM Result Value Ref Range Thyroid Stimulating Hormone, Plasma 1.42 0.40 - 4.20 uIU/mL Free T4, Plasma Collection Time: 09/26/24 3:51 PM Result Value Ref Range Free T4, Plasma 1.1 0.8 - 1.7 ng/dL HIV 1 & 2 Antibody/Antigen Screen Collection Time: 09/26/24 3:51 PM Result Value Ref Range HIV 1 & 2 Antibody/Antigen Screen Non Reactive Non Reactive Pertinent Mental Status At Time of Discharge: Mental Status Exam Orientation: Alert and oriented to person, place, time, and situation Appearance and grooming: Appropriate Attitude towards examiner: Cooperative and appropriate Insight: Good Judgment: Good Mood: Euthymic Affect: Mood Congruent; full range Psychomotor level: Steady gait, no abnormal movements noted, no tics, no tremors, no extrapyramidalsymptoms. Speech: Normal rate, rhythm, and volume. Memory: Short and correction intact; not formally tested Thought processes: Logical, linear and goal directed. Thought Content: No suicidal or homicidal ideation, no delusions, no obsessions or compulsions, andno auditory, visual, tactile, or olfactory hallucinations. Calculated C-SSRS Risk Score (Lifetime/Recent): Low Risk Discharge Disposition/Condition Disposition: Home Condition: Stable (s/sx potential problems absent or manageable) I spent >30 minutes of patient care and instruction time in preparation for this discharge. Cosigned by Sachin Manuel MD at 10/01/2024 12:27 PM EDT Associated attestation - Sachin Manuel MD - 10/01/2024 12:27 PM EDT The patient was seen only by Advanced Practice Provider (SELVIN), and care was reviewed with me. * Discharge Instr - Appointments - Jane Williamson - 09/26/2024 5:01 PM EDT Appointment with Hernandez Hummel on October 02 at 11:00 a.m. at [address] [place] [address] * ED Provider Notes - Irish Vasquez APRN - 09/26/2024 3:18 PM EDT [facility] Initial Eval Chief Concern & History Of Present Illness Cornel Fleming is a 24 y.o. female presenting with anxiety, depression and suicidal ideation. She reports since having a c section 8 months ago she hates her body and feels like she is under a lot of stress related to being a single mom. She states she has been overwhelmed trying to care for her 2 children and will often cut her thigh or burn herself with a hole digger truck driver to cope with anxiety and worry. She denies current SI/HI/AVH and paranoia, but reports thought of suicide early in the day today. She last cut and burned herself yesterday, however she has no raymond from cuts or mueller on her thighs. She denies any substance use. She has been following up with her OBGYN and family doctor who have started her on Celexa but she does not believe it is working. She presents to [facility] and requests therapy. DASA Score:: 0 Calculated C-SSRS Risk Score (Lifetime/Recent): Low Risk Past Medical and Surgical History not significant other than 2 c sections. Allergies Patient has no known allergies. Medications Current Medications[1] Review of Systems Constitutional: Positive for fatigue. HENT: Negative. Eyes: Negative. Respiratory: Negative. Cardiovascular: Negative. Gastrointestinal: Negative. Endocrine: Negative. Genitourinary: Negative. Musculoskeletal: Negative. Skin: Negative. Allergic/Immunologic: Negative. Neurological: Positive for difficulty with concentration. Hematological: Negative. Psychiatric/Behavioral: Positive for self-injury, sleep disturbance and suicidal ideas. The patientis nervous/anxious and has insomnia. Psych Review of Symptoms: ADHD: Patient denied any symptoms. Anxiety: Generalized Anxiety Symptoms: Difficulty controlling worry, excessive worry, difficulty with concentration and sleep disturbances due to anxiety. Social Anxiety Symptoms: Social anxiety. Developmental and Sensory Concerns: Patient denied any symptoms. Depressive Symptoms: Depressed mood, decreased interest, fatigue, feelings of worthlessness, withdrawal/isolation, irritable, hopelessness, guilt, insomnia, low self esteem and suicidal ideation. Disruptive and Conduct Symptoms: Patient denied any symptoms. Eating / Feeding Concerns: Inability to perceive body size and shape realistically, poor appetite, body dissatisfaction and fear of fat. Elimination Symptoms: Patient denied any symptoms. Manic Symptoms: Patient denied any symptoms. Obsessive-Compulsive Symptoms: Patient denied any symptoms. Psychotic Symptoms: Patient denied any symptoms. Trauma Related Symptoms: Unable to remember trauma, memory loss of past stressful events and reckless/self-destructive behavior. Sleep Concerns: Difficulty staying asleep, restless sleep and awakening from sleep. Pertinent Physical Exam findings: none Physical Exam HENT: Head: Normocephalic. Mouth/Throat: Mouth: Mucous membranes are dry. Eyes: Pupils: Pupils are equal, round, and reactive to light. Cardiovascular: Rate and Rhythm: Normal rate. Pulses: Normal pulses. Pulmonary: Effort: Pulmonary effort is normal. Abdominal: General: Abdomen is flat. Palpations: Abdomen is soft. Musculoskeletal: General: Normal range of motion. Cervical back: Normal range of motion. Skin: General: Skin is warm and dry. Psychiatric: Mood and Affect: Mood normal. First Recorded Vitals ED Triage Vitals [09/26/24 1501] Temp Heart Rate Resp BP 37.4 ??C (99.4 ??F) 84 -- 131/82 SpO2 Temp src Heart Rate Source Patient Position 97 % -- -- -- BP Location FiO2 (%) -- -- Labs No results found for this or any previous visit (from the past 24 hours). PSYCH Hx: Diagnoses: Depressive disorder unspecified Trauma hx: Yes Physical: Yes Sexual: Yes Emotional: Yes MENTAL STATUS EXAM: Mental Status Evaluation: Appearance: age appropriate and disheveled Behavior: normal Speech: soft Mood: anxious Affect: blunted Thought Process: normal Thought Content: Delusions: No Hallucinations: No Homicidal: No Obsessions: No Suicidal: Yes Plan/Implementation related to SI: no Sensorium: person, place, time/date, and situation Cognition: grossly intact Insight: age appropriate and fair Judgment: age appropriate Problem based Plan and Disposition: Observe in [facility], set up with therapy and psychiatry appointments Recommend revaluation within 4 hours. [1] Current Facility-Administered Medications Medication Dose Route Frequency Provider Last Rate Last Admin acetaminophen (Tylenol) tablet 650 mg 650 mg Oral q6h PRN Irish Vasquez APRN aluminum & magnesium hydroxide-simethicone (Mylanta) 200-200-20 MG/5ML oral suspension 10 mL 10mL Oral q6h PRN Irish Vasquez APRN hydrOXYzine pamoate (Vistaril) capsule 50 mg 50 mg Oral q6h PRN Irish Vasquez APRN magnesium hydroxide (Milk of Magnesia) 400 MG/5ML suspension 10 mL 10 mL Oral Daily PRN Irish Vasquez APRN Current Outpatient Medications Medication Sig Dispense Refill busPIRone (Buspar) 5 MG tablet busPIRone (Buspar) 7.5 MG tablet Take 1 tablet (7.5 mg) by mouth 2 (two) times a day. escitalopram (Lexapro) 10 MG tablet 1 (one) time each day at the same time. norelgestromin-ethinyl estradiol (Xulane) 150-35 MCG/24HR Apply 1 patch each week for 3 weeks, thenremove for 1 week. 3 patch 12 Saleeby, Charley R, RECONCILER 09/26/24 1534 * ED Triage Notes - Pola Narayanan RN - 09/26/2024 2:59 PM EDT Patient is a 24 year-old female with ah history of anxiety, depression and self harm presenting viaprivate vehicle for suicidal ideation and depression. Patient reports aforementioned issues stem form family strife and negative body image she developed after having a baby. Denies HI/AVH and illicit substance use documented in this encounter Plan of Treatment Upcoming Encounters Date Type Department Care Team (Late st Contact Info) Description 12/10/2024 2:20 PM EDT Office Visit Obstetrics & Gynecology [address] [place] [address] Emma Carter MD [address] [place] [address] documented as of this encounter Procedures Procedure Name Priority Date/Time Associated Diagnosis Comments HEPATITIS B SURFACE ANTIGEN - [facility] 09/26/2024 3:51 PM EDT HEPATITIS C ANTIBODY WITH REFLEX TO HCV QUANT PCR - [facility] STAT 09/26/2024 3:51 PM EDT HIV 1/2 ANTIBODY/ANTIGEN SCREEN W/REFLEX TO HIV 1/2 ANTIBODY DIFFERENTIATION STAT 09/26/2024 3:51 PM EDT HIV 1/2 ANTIBODY/ANTIGEN SCREEN WITH REFLEX TO HIV I/II DIFFERENTIATION STAT 09/26/2024 3:51 PM EDT CBC WITH AUTO DIFFERENTIAL STAT 09/26/2024 3:51 PM EDT TSH STAT 09/26/2024 3:51 PM EDT FREE T4, PLASMA STAT 09/26/2024 3:51 PM EDT HEMOGLOBIN A1C STAT 09/26/2024 3:51 PM EDT documented in this encounter Results * HIV 1 & 2 Antibody/Antigen Screen (09/26/2024 3:51 PM EDT) HIV 1 & 2 Antibody/Antigen Screen Non Reactive Non Reactive 09/26/2024 5:34 PM EDT [facility] Comment:Screening for HIV 1 & 2 antibodies, and P24 antigen is NONREACTIVE. No confirmatory testing is required. Blood Venous blood specimen / Unknown Venipuncture / Unknown 09/26/2024 3:51 PM EDT 09/26/2024 3:54 PM EDT Irish Vasquez RECONCILER LAB BLOOD ORDERABLES Valentina l Result Performing Organization Address City/State/[facility] Co de Phone Number [facility] [address] [place] [address] * Hemoglobin A1c (09/26/2024 3:51 PM EDT) Hemoglobin A1c 5.3 <5.7 % 09/30/2024 7:10 AM EDT [facility] Blood Venous blood specimen / Unknown Venipuncture / Unknown 09/26/2024 3:51 PM EDT 09/26/2024 3:54 PM EDT Narrative [facility] - 09/30/2024 7:10 AM EDT HA1C Interpretive Data: Diagnosis of Diabetes: Diabetic > or = 6.5% Pre-diabetic 5.7 to 6.4% Non-diabetic < or = 5.6% Glycemic Targets for Type I and Type II Diabetics: Non- Adults <7.0% Adults <6.0% Children and Adolescents <7.5% Source: [place] [employer]. Standards of medical care in diabetes,2017. Diabetes Care.2017:40 (suppl 1):S1-S135. [employer] Jennifer Vasquez RECONCILER LAB BLOOD ORDERABLES Valentina l Result Performing Organization Address City/[facility]/ZIP Co de Phone Number [facility] [address] [place] [address] * Free T4, Plasma (09/26/2024 3:51 PM EDT) Free T4, Plasma 1.1 0.8 - 1.7 ng/dL 09/26/2024 5:28 PM EDT [facility] Blood Venous blood specimen / Unknown Venipuncture / Unknown 09/26/2024 3:51 PM EDT 09/26/2024 3:54 PM EDT Narrative [facility] - 09/26/2024 5:28 PM EDT Free T4 Trimester Specific Ranges 1st Trimester 0.9 - 1.50 ng/dL 2nd Trimester 0.7 - 1.40 ng/dL 3rd Trimester 0.7 - 1.24 ng/dL Irish Vasquez APRN LAB BLOOD ORDERABLES Valentina l Result Performing Organization Address [facility]/ZIP Co de Phone Number [facility] [address] [place] [address] * Thyroid Stimulating Hormone, Plasma (09/26/2024 3:51 PM EDT) Thyroid Stimulating Hormone, Plasma 1.42 0.40 - 4.20 uIU/mL 09/26/2024 5:28 PM EDT [facility] Blood Venous blood specimen / Unknown Venipuncture / Unknown 09/26/2024 3:51 PM EDT 09/26/2024 3:54 PM EDT Narrative [facility] - 09/26/2024 5:28 PM EDT Trimester Specific Ranges TSH ( IU/mL) 1st Trimester 0.1 - 3.0 2nd Trimester 0.19 - 4.06 3rd Trimester 0.3 - 3.7 Irish Vasquez APRN LAB BLOOD ORDERABLES Valentina l Result Performing Organization Address City/[facility]/ZIP Co de Phone Number [facility] [address] [place] [address] * Hepatitis C Antibody with Reflex to HCV Quant PCR - [facility] (09/26/2024 3:51 PM EDT) Pathologist [facility] Hepatitis C Antibody Negative Negative 09/26/2024 5:34 PM EDT [facility] Blood Venous blood specimen / Unknown Venipuncture / Unknown 09/26/2024 3:51 PM EDT 09/26/2024 3:54 PM EDT Irish R Gualbertoandersy RECONCILER LAB BLOOD ORDERABLES Valentina l Result [facility] [address] [place] [address] * Hepatitis B Surface Antigen - [facility] (09/26/2024 3:51 PM EDT) [facility] Hepatitis B Surf Antigen Negative Negative 09/26/2024 6:35 PM EDT [facility] Blood Venous blood specimen / Unknown Venipuncture / Unknown 09/26/2024 3:51 PM EDT 09/26/2024 3:54 PM EDT Irish R Christina RECONCILER LAB BLOOD ORDERABLES Valentina l Result Performing Organization Address City/[facility] Co de Phone Number [facility] [address] [place] [address] * (ABNORMAL) CBC w/diff (09/26/2024 3:51 PM EDT) [facility] WBC Count 4.27 3.70 - 10.30 10*3/uL LAB HEMATOLOGY METHOD 09/26/2024 5:13 PM EDT [facility] RBC Count 4.48 3.90 - 5.20 10*6/uL LAB HEMATOLOGY METHOD 09/26/2024 5:13 PM EDT [facility] HGB 9.7(L) 11.2 - 15.7 g/dL LAB HEMATOLOGY METHOD 09/26/2024 5:13 PM EDT [facility] HCT 33.0(L) 34.0 - 45.0 % LAB HEMATOLOGY METHOD 09/26/2024 5:13 PM EDT [facility] Platelet Count 205 155 - 369 10*3/uL LAB HEMATOLOGY METHOD 09/26/2024 5:13 PM EDT [facility] MCV 74(L) 79 - 98 fL LAB HEMATOLOGY METHOD 09/26/2024 5:13 PM EDT [facility] MCH 21.7(L) 26.0 - 32.0 pg LAB HEMATOLOGY METHOD 09/26/2024 5:13 PM EDT [facility] MCHC 29.4(L) 30.7 - 35.5 g/dL LAB HEMATOLOGY METHOD 09/26/2024 5:13 PM EDT [facility] RDW 17.7(H) 11.5 - 14.5 % LAB HEMATOLOGY METHOD 09/26/2024 5:13 PM EDT [facility] MPV 11.4 8.8 - 12.5 fL LAB HEMATOLOGY METHOD 09/26/2024 5:13 PM EDT [facility] nRBC 0.0 <=0.0 per 100 WBCs LAB HEMATOLOGY METHOD 09/26/2024 5:13 PM EDT [facility] Differential Type Automated LAB HEMATOLOGY METHOD 09/26/2024 5:13 PM EDT [facility] Neutrophils % 40 % LAB HEMATOLOGY METHOD 09/26/2024 5:13 PM EDT [facility] Lymphocytes % 50 % LAB HEMATOLOGY METHOD 09/26/2024 5:13 PM EDT [facility] Monocytes % 7 % LAB HEMATOLOGY METHOD 09/26/2024 5:13 PM EDT [facility] Eosinophils % 2 % LAB HEMATOLOGY METHOD 09/26/2024 5:13 PM EDT [facility] Basophils % 1 % LAB HEMATOLOGY METHOD 09/26/2024 5:13 PM EDT [facility] Immature Granulocytes % 0 % LAB HEMATOLOGY METHOD 09/26/2024 5:13 PM EDT [facility] Neutrophils Absolute 1.72 1.60 - 6.10 10*3/uL LAB HEMATOLOGY METHOD 09/26/2024 5:13 PM EDT [facility] Lymphocytes Absolute 2.14 1.20 - 3.90 10*3/uL LAB HEMATOLOGY METHOD 09/26/2024 5:13 PM EDT [facility] Monocytes Absolute 0.31 0.30 - 0.90 10*3/uL LAB HEMATOLOGY METHOD 09/26/2024 5:13 PM EDT [facility] Eosinophils Absolute 0.08 0.00 - 0.50 10*3/uL LAB HEMATOLOGY METHOD 09/26/2024 5:13 PM EDT [facility] Basophils Absolute 0.02 0.00 - 0.10 10*3/uL LAB HEMATOLOGY METHOD 09/26/2024 5:13 PM EDT [facility] Immature Granulocytes Absolute 0.00 0.00 - 0.06 10*3/uL LAB HEMATOLOGY METHOD 09/26/2024 5:13 PM EDT [facility] Blood Venous blood specimen / Unknown Venipuncture / Unknown 09/26/2024 3:51 PM EDT 09/26/2024 3:54 PM EDT Narrative [facility] - 09/26/2024 5:13 PM EDT Therapeutic decision making should be based on absolute values, rather than percentages. us Irish Vasquez APRN LAB BLOOD ORDERABLES Valentina love Result [facility] [address] [place] [address] documented in this encounter Visit Diagnoses Diagnosis Depressive disorder- Primary Depressive disorder, not elsewhere classified documented in this encounter Administered Medications Inactive Administered Medications - up to 3 most recent administrations Medication Order MAR Action Action Date Dose Rate Site acetaminophen (Tylenol) tablet 650 mg 650 mg, Oral, Every 6 hours PRN, Starting on Sun09/26/24 at 1514, Until Sun09/26/24 at 2337, Routine, mild pain, moderate pain aluminum & magnesium hydroxide-simethicone (Mylanta) 200-200-20 MG/5ML oral suspension 10 mL 10 mL, Oral, Every 6 hours PRN, Starting on Sun09/26/24 at 1514, Until Sun09/26/24 at 2337, Routine, indigestion, heartburnIndications:UGI Symptoms escitalopram (Lexapro) tablet 20 mg 20 mg, Oral, Once, 1 dose, On Sun09/26/24 at 1545, STAT Given 09/26/2024 3:59 PM EDT 20 mg hydrOXYzine pamoate (Vistaril) capsule 25 mg 25 mg, Oral, Every 6 hours PRN, Starting on Sun09/26/24 at 2039, Until Sun09/26/24 at 2337, Routine, anxietyIndications:Anxiety LORazepam (Ativan) tablet 1 mg 1 mg, Oral, Once, 1 dose, On Sun09/26/24 at 1545, STAT Given 09/26/2024 4:00 PM EDT 1 mg magnesium hydroxide (Milk of Magnesia) 400 MG/5ML suspension 10 mL 10 mL, Oral, Daily PRN, Starting on Sun09/26/24 at 1514, Until Sun09/26/24 at 2337, Routine, constipationIndications:Constipatio n documented in this encounter Active and Recently Administered Medications Times are shown in EDT. Scheduled Medication Order 09/24/2024 09/25/2024 09/26/2024 escitalopram (Lexapro) tablet 20 mg (COMPLETED) 20 mg, Oral, Once, 1 dose, On Sun09/26/24 at 1545, STAT 1559 (Given - Provid er: Pola Narayanan RN) LORazepam (Ativan) tablet 1 mg (COMPLETED) 1 mg, Oral, Once, 1 dose, On Sun09/26/24 at 1545, STAT 1600 (Given - Provid er: Pola Narayanan RN) PRN Medication Order 09/24/2024 09/25/2024 09/26/2024 acetaminophen (Tylenol) tablet 650 mg 650 mg, Oral, Every 6 hours PRN, Starting on Sun09/26/24 at 1514, Until Sun09/26/24 at 2337, Routine, mild pain, moderate pain aluminum & magnesium hydroxide-simethicone (Mylanta) 200-200-20 MG/5ML oral suspension 10 mL 10 mL, Oral, Every 6 hours PRN, Starting on Sun09/26/24 at 1514, Until Sun09/26/24 at 2337, Routine, indigestion, heartburn hydrOXYzine pamoate (Vistaril) capsule 25 mg 25 mg, Oral, Every 6 hours PRN, Starting on Sun09/26/24 at 203, Until Sun09/26/24 at 2337, Routine, anxiety magnesium hydroxide (Milk of Magnesia) 400 MG/5ML suspension 10 mL 10 mL, Oral, Daily PRN, Starting on Sun09/26/24 at 1514, Until Sun09/26/24 at 2337, Routine, constipation documented in this encounter Additional Health Concerns Assessment Noted Time PHQ-9 Depression Total Score: 18 09/26/ 025 3:13 PM EDT A fall risk assessment has been complete d for the patient 09/25/2024 11:33 AM EDT A Body Mass Index follow-up plan has been documented for the patient 09/25/2024 7:07 PM EDT documented as of this encounter Care Teams Stone Crusher Operator Relationship Specialty Start Date End Date Dana Haile APRN [facility] [place] [address] PCP - General 09/23/24 documented as of this encounter
--- OUTSIDE RECORDS SUMMARY | 2024-09-30 04:30 | XMS_ITS ---
Author Organization [facility] PE D [place] Address [address] [place] [address] Care Team Providers Care Rda Name Role Phone Ralph Haile Primary Care Provider RALPH HAILE Unavailable Unavaila ble Allergies No Known Allergies Reason For Referral Reason [facility] Behavioral Healt h Diagnosis 1 Severe episode of re current major depressive disorder, without psychotic features (F33.2) Referral Organization [facility] AMANUEL US Referring Provider First Name Ralph Referring Provider Last Name Lazara Referring Provider Speciality Family Pra ctice Referred Organization [facility] Referred Address [address] [place] [address], [place],[id number], Referred Provider Specialty Behavioral [facility] General Notes Delores Marroquin 2024 10:55:18 AM >sent to [facility] Behavioral Health at [facility] Referral Priority Routine REASON FOR VISIT FU mental health facility, hurting herself Medications Medication SIG (Take, Route, Frequency, Duration) Notes Start Date End Date Status Escitalopram Oxalate 10 MG 1 tab(s) oral ly once a day 06/17/2024 Active busPIRone HCl 5 MG 1 tab(s) orally 2 ti mes a day Active ARIPiprazole 5 MG 1 tablet Orally Once a day; Duration: 30 days 09/30/2024 Active Norelgestromin-Eth Estradiol 150-35 MCG/24HR as directed Transdermal Active Social History Tobacco Use: Social History Observation Description Date Details (start date - stop date) Never Smoker NA - NA Tobacco Control (Standard) Question Answer Notes Tobacco use: Nonsmoker Problems Problem Type SNOMED Code ICD Code Onset Dates Problem Status W/U Status Risk Notes Problem Severe episode of recurrent major depressive disorder, without psychotic features (F33.2) Active confirmed Vital Signs Temperature 97.8 degrees Fahrenheit 10/01/19 25 Heart Rate 80 /min 09/30/2024 Blood pressure systolic 96 mm Hg 10/01/19 25 Blood pressure diastolic 62 mm Hg 025 Height 5ft 3in in 09/30/2024 Weight 137.2 lbs 09/30/2024 BMI 24.3 kg/m2 09/30/2024 Encounters Encounter Location Date Provider Diagnosis [facility] [address] [place] [address] 09/30/2024 Ralph Haile Severe episode of recurrent major depressive disorder, without psychotic features F33.2 and Nonsuicidal self-harm R45.88 Assessments Encounter Date Diagnosis (ICD Code) Assessment Notes Treatment Notes Treatment Clinical Notes Section Notes 09/30/2024 Severe episode of recurrent major depressive disorder, without psychotic features (ICD-10 - F33.2) Long discussion about resources including suicide hotline. She denies active suicidal ideation and is agreeable to behavioral health referral. That will be placed today. Start Abilify as noted, continue Lexapro which she thinks has been helpful over the last several months until this recent exacerbation. Strict return precautions reviewed, follow-up closely in 1 week and will continue to follow until she is evaluated by behavioral health. 09/30/2024 Nonsuicidal self-harm (ICD-10 - R45.88) Plan Of Treatment Medication Medication Name Sig Start Date Stop Date Notes Escitalopram Oxalate 10 MG 1 tab(s) orally once a day 05/31 busPIRone HCl 5 MG 1 tab(s) orally 2 times a day ARIPiprazole 5 MG 1 tablet Orally Once a day; Duration: 30 days 09/30/2024 Referrals Referral Date Details 09/30/2024 09/30/2024, [facility], [address], [place], [address], Next Appt Details Follow Up: 1 Week, Reason: Provider Name:Ralph Latesha [place], 10/07/2024 10:45:00 AM, [address], [place], [address], Progress Notes * Cornel HARRISDOB:2000 (24 yo F)Acc No.[id number]:09/30/2024 Progress Notes Patient: Cornel ESPITIA Provider: ROSEMARIE Miguel :2000 A ge:24 Y S ex:Female Date:09/30/2024 Address:[address] [place] [address] E , [id number] Subjective: * Chief Complaints: * 1 . [facility] health facility, hurting herself. * HPI: P sychology: 24-year-old female with history of depression and anxiety presents to discuss recent symptoms. She was seen at the beginning of August and reported that she was doing well at that time but since then has had some increase in stressors both financially and in her home related to caring for her grandparents who are getting worse and requiring more assistance... Last week her children were with their father and she began having thoughts of self-harm and ultimately ended up burning herself on her thigh. She did it again the following day. Had an appointment scheduled with her BLENDING TANK HELPER to discuss some menstrual irregularities and they suggested that she go to a facility in [place] for evaluation. She went the following day to [facility] and was evaluated - reports that labs were unremarkable and she was kept for about 6 hours. Did not change her medications. She does have an appt on this week with a therapist. 24 year old female presents with c/o high stress. c/o sleep disturbances s leeping around 3-4 hours, still sleeping, doesn't always feel tired at bedtime but also has trouble not thinking about things. c/o weight loss. c/o appetite change?decreased. c/o low energy level. c/o depressed mood. c/o feeling overwhelmed.? c/o thoughts of hurting self. Denies : hallucinations. * ROS: R ESPIRATORY: Reviewed, No Symptoms Reported: Y es. Jessica ARDIOLOGY: Reviewed, No Symptoms Reported: Y es. Jessica ONSTITUTIONAL: See HPI Y es. Rohini ERMATOLOGY: no R saleem. G ASTROENTEROLOGY: Reviewed, No Symptoms Reported: Y es. U ROLOGY: Reviewed, No Symptoms Reported: Y es. * Medical History: A nxiety, Depression, Anemia, [...] 1 tab(s) orally once a day , Discontinued Loratadine 10 MG Tablet 1 tablet Orally Once a day , Discontinued Amoxicillin 875 MG Tablet 1 tablet Orally Twice a day , Medication List reviewed and reconciled with the patient * Allergies: N .K.D.A. Objective: * Vitals: N urse: jl, Pain: 7-rt wrist, Temp: 97.8, RR: 16, HR: 80, BP: 96/62, Ht: 5ft 3in, Wt: 137.2, BMI:24.3. * Examination: P sychology: General Appearance: N AD, pleasant. Grooming : a dequate. Eye contact : n ormal. Mood : p leasant to mildly depressed. Heart: R egular Rate and Rhythm, no murmur, rubs or gallops. Lungs: L CTAB, No wheezes, crackles or rhonchi, Good air movement,. r ight forearm with bruising from IV/labs but without erythema, swelling, warmth. She declines to show me her mueller on the thigh. Assessment: * Assessment: 1. S evere episode of recurrent major depressive disorder, without psychotic features - F33.2 (Primary) 2 . N onsuicidal self-harm - R45.88 Plan: * Treatment: * Follow Up: 1 Week * * Sign off status: Completed true * Provider: ROSEMARIE Miguel Date: 09/30/2024 Generated for Tracey noe/Inez/Julio Césaritting on: 10/01/2024 05:33 PM EDT History and Physical Notes * HPI (History of Present Illness) Category Sub-Category Detail Notes Category Not es Psychology depressed mood low energy level appetite change decreased sleep disturbances sleeping around 3-4 hours, still sleeping, doesn't always feel tired at bedtime but also has trouble not thinking about things high stress weight loss feeling overwhelmed thoughts of hurting self hallucinations Examination Category Sub-Category Detail Notes Category Not es Psychology Heart: Regular Rate and Rhythm, no murmur, rubs or gallops right forearm with bruising from IV/labs but without erythema, swelling, warmth. She declines to show me her mueller on the thigh Lungs: LCTAB, No wheezes, c rackles or rhonchi, Good air movement, General Appearance: NAD, pleasant Grooming : adequate Eye contact : normal Mood : pleasant to mildly d epressed Consultation Request Notes Referral Date Referring Provider Referred Provider Not es 09/30/2024 Ralph Haile [facility] Behavior al Health
--- OUTSIDE RECORDS SUMMARY | 2024-10-01 17:33 | XMS_ITS | Encounter Summary ---
Author Organization Healthcare Address [address] [place] [address] Care Team Providers Care Medical Care Evaluation Specialist Name Role Phone Dana Haile MARILEE Primary Care Provider [phone] Encounter Details Date Type Department Care Team (Latest Contact Info) Description 09/25/2024 Travel Social History Tobacco Use Types Packs/Day Years Used Date Smoking Tobacco: Never Smokeless Tobacco: Never Alcohol Use Standard Drinks/Week Comments Never 0 (1 standard drink = 0.6 oz pur e alcohol) PHQ-2 Answer Date Recorded Patient Health Questionnaire-2 Score 4 09/26/2024 [place] Depression Scale Answer Date Recorded [place] Depression Scale Total 0 02/20/2024 The thought [...] drink first t enedina in the morning (EYE-GRAIN BROKER) to steady your nerves or to get rid of a hangover? 0 09/26/2024 CAGE Questionnaire Score 0 025 Comments No Sex and Gender Information Value Date Recorded Sex Assigned at Not on file Legal Sex Female 10:49 AM RYLEE Gender Identity Not on file Sexual Orientation Not on file documented as of this encounter Functional Status * Over the past 2 weeks, how often have you been bothered by any of the following problems? Question Answer Date of Assessment Author Little interest or pleasure in doing things More than half the days 09/25/2024 11:48 AM Sarai Cartwright Feeling down, depressed, or hopeless Several days 09/25/2024 11:48 AM Sarai Cartwright Patient Health Questionnaire-2 Score 3 09/25/2024 11:48 [...] difficult at all 09/25/2024 11:48 AM Sarai Cartwright documented as of this encounter Plan of Treatment Upcoming Encounters Date Type Department Care Team (Late st Contact Info) Description 12/10/2024 2:20 PM EDT Office Visit Obstetrics & Gynecology [address] [place] [address] Emma Carter MD [address] [place] [address] documented as of this encounter Visit Diagnoses Not on filedocumented in this encounter Additional Health Concerns Assessment Noted Time PHQ-9 Depression Total Score: 20 025 11:48 AM EDT A fall risk assessment has been complete d for the patient 09/25/2024 11:33 AM EDT A Body Mass Index follow-up plan has been documented for the patient 09/25/2024 7:07 PM EDT documented as of this encounter Care Teams Medical Care Evaluation Specialist Relationship Specialty Start Date End Date Dana Haile APRN [address] [address] PCP - General 09/23/24 documented as of this encounter
--- OUTSIDE RECORDS SUMMARY | 2024-10-01 17:33 | XMS_ITS | Patient Health Record ---
Author Organization [facility] Address [address] [place] [address] Care Team Providers Care Yarn Dumper Name Role Phone Dana Ford [phone] Allergies No Known Allergies Reason For Referral No Information Medications Medication SIG (Take, Route, Frequency, Duration) Notes Start Date End Date Status Breast Pump - [employer] (E0603) 11/01/2021 Active Vitamin Act genevieve Social History Tobacco Use: Social History Observation Description Date Details (start date - stop date) Never Smoker NA - NA Social History Drugs/Alcohol: Social Info Question Answer Notes Drugs Have you used drugs other than those for medical reasons in the past 12 months? No Steroid Use Have you used anabolic (body building) st eroids? No Alcohol Screen Did you have a drink containing alcohol in the past year? No Points 0 Interpretation Negative Tobacco Use: Social Info Question Answer Notes Tobacco Use/Smoking Are you a nonsmoker Tobacco use other than smoking: Are you an other tobac co user? No Section Notes: EP, DUST BOX WORKER EP, DUST BOX WORKER EP, DUST BOX WORKER EP, DUST BOX WORKER EP, DUST BOX WORKER EP, DUST BOX WORKER EP, DUST BOX WORKER EP, DUST BOX WORKER EP, DUST BOX WORKER EP, DUST BOX WORKER EP, DUST BOX WORKER Problems Problem Type SNOMED Code ICD Code Onset Dates Problem Status W/U Status Risk Notes Problem Bicornate uterus (10341590) Bicornate uterus (Q51.3) Active confirmed Problem Primigravida (483083237) Supervision of normal first in second trimester (Z34.02) Active confirmed Problem Third trimester (92657564) Encounter for supervision of other normal in third trimester (Z34.83) Active confirmed Problem Footling breech presentation, single or unspecified fetus (O32.8XX0) Active confirmed Plan Of Treatment No Information Insurance Providers Payer Name Payer Address Payer Phone Subscriber Number Group Number Insured Name Patient Relationship to Insured Coverage Start Date Coverage End Date Daren VALDEZ [address] [place] [address] [id number] Cornel Fleming Self - patient is the insured Medical (General) History Medical History History ICD Code Anxiety bicornuate uterus Surgical History Surgery Date(Month/Year)
--- OUTSIDE RECORDS SUMMARY | 2024-10-01 17:33 | XMS_ITS | Encounter Summary ---
Author Organization Healthcare Address [address] [place] [address] Care Team Providers Care Boiler Testing Technician Name Role Phone Bubba Bhatt MD Primary Care Provider [phone] Encounter Details Date Type Department Care Team (Late Contact Info) Description 07/14/2024 Results Follow-Up Obstetrics & Gynecology [address] [place] [address] Renetta Alexis MD [address] [place] [address] Social History Tobacco Use Types Packs/Day Years Used Date Smoking Tobacco: Never Smokeless Tobacco: Never Alcohol Use Standard Drinks/Week Comments Never 0 (1 standard drink = 0.6 oz pur e alcohol) PHQ-2 Answer Date Recorded Patient Health Questionnaire-2 Score 0 07/03/2024 Hooks Depression Scale Answer Date Recorded [place]s Depression Scale Total 0 02/20/2024 The thought of harming myself has occurred to me . Never 02/20/2024 PHQ-9 Answer Date Recorded Patient Health Questionnaire-9 Score 0 07/03/2024 Comments No Sex and Gender Information Value Date Recorded Sex Assigned at Not on file Legal Sex Female 10:49 AM EDT Gender Identity Not on file Sexual Orientation Not on file documented as of this encounter Plan of Treatment Upcoming Encounters Date Type Department Care Team (Late Contact Info) Description 12/10/2024 2:20 PM EDT Office Visit Obstetrics & Gynecology [address] [place] [address] Emma Carter MD [address] [place] [address] documented as of this encounter Visit Diagnoses Not on filedocumented in this encounter Additional Health Concerns Assessment Noted Time PHQ-9 Depression Total Score: 0 07/04/19 8:53 AM EDT A fall risk assessment has been complete d for the patient 07/03/2024 8:53 AM EDT A Body Mass Index follow-up plan has been documented for the patient 07/03/2024 10:03 AM EDT documented as of this encounter Care Teams Boiler Testing Technician Relationship Specialty Start Date End Date Bubba Bhatt MD [address] [facility] [address] [place], [place] [id number] PCP - General 04/19/22 09/22/24 documented as of this encounter
--- OUTSIDE RECORDS SUMMARY | 2024-10-01 17:33 | XMS_ITS | Clinical Summary ---
Author Organization [facility] Address [address] [place] [address] Care Team Providers Care Remanufacturing Technician Name Role Phone Dana Haile MARILEE Primary Care Provider [phone] Allergies No known active allergies Medications busPIRone (Buspar) 7.5 MG tablet Take 1 tablet (7.5 mg) by mouth 2 (two) times a day. 4 Active busPIRone (Buspar) 5 MG tablet 5 Active norelgestromin-et hinyl estradiol (Xulane) 150-35 MCG/24HRIndicatio ns:Encounter for initial prescription of transdermal patch hormonal contraceptive device Apply 1 patch each week for 3 weeks, then remove for 1 week. 3 patch 12 5 Active escitalopram (Lexapro) 20 MG tablet Take 1 tablet by mouth daily. 30 tablet 5 Active hydrOXYzine pamoate (Vistaril) 25 MG capsule Take 1 capsule by mouth every 6 hours as needed for itching for up to 10 days. 30 capsule 5 10/07/19 25 Active escitalopram (Lexapro) 10 MG tablet 1 (one) time each day at the same time. 5 09/27/19 25 Discontinu ed( ) Active Problems Problem Noted Date Diagnosed Date Depression with anxiety 07/03/2024 Chronic rhinitis 07/03/2024 Pap smear for cervical cancer screening 07/04/19 25 Assessment & Plan (07/03/2024 10:03 AM EDT): - Pap smear performed in office today. Discussed when patient should expect results of Pap smear. - reviewed health maintenance including diet, regular exercise, dietary supplementation with Ca/Vit D and periodic exams Orders: Referred ThinPrep Pap Reflex to HPV (SO) Encounter for initial prescr iption of transdermal patch hormonal contraceptive device 07/03/2024 Assessment & Plan (07/03/2024 10:03 AM EDT): - Patient interested in hormonal contraception. She has tried ring and OCPs and did not like them. Interested in the transdermal patch. - LMP heavier and more painful than usual. Discussed how starting hormonal contraception would help with symptoms. - Discussed with patient how to apply transdermal patch, when to change the patch, and to use a back up contraceptive method for the first month. - RTC for annual exam or prn Orders: norelgestromin-ethinyl estradiol (Xulane) 150-35 MCG/24HR; Apply 1 patch each week for 3 weeks, then remove for 1 week. Bicornate uterus 06/28/2023 Resolved Problems Problem Noted Date Diagnosed Date Resolved Date 35 weeks gestation of 12/07/2023 02/20/2024 Congenital dilatation of the renal pelvis 12/07/2023 02/20/2024 29 weeks gestation of 11/19/2023 12/07/2023 Uterine size-date discrepanc y in third trimester 11/19/2023 12/07/2023 26 weeks gestation of 10/05/2023 11/19/2023 Abdominal pain affecting 10/05/2023 11/19/2023 Footling breech presentation 06/28/2023 06/28/2023 state, incidental 06/28/2023 0 10/05/2023 Assessment & Plan (09/03/2023 8:40 AM EDT): - labs reviewed - discussed belt, lifting with news, tylenol, heating pads, warm baths - continue PNV - jenna US scheduled - RTC 4 weeks Assessment & Plan (07/30/2023 3:14 PM EDT): - labs reviewed - normal NT, NIPT today - continue PNV - jenna US ordered - RTC 4 weeks Assessment & Plan (06/28/2023 9:41 AM EDT): - labs today - US shows bicornuate uterus, viable SIUP with CRL c/w LMP, keep TIFFANIE 02/04/24 - desires genetic screening - FTS US ordered. Unsure about blood work - will decide at next visit - continue PNV - we discussed risk with bicornuate uterus including malpresentation, labor, and rupture of membranes - RTC 4 weeks Pelvic and perineal pain 05/12/2022 Dysmenorrhea 05/12/2022 06/28/2023 Assessment & Plan (05/12/2022 11:51 AM EST): - TVUS: bicornuate uterus visualized, no polyp or fibroid, ovaries not visualized, no free fluid. - discussed normal ultrasound - we discussed pain on period could be from bicornuate uterus or possible endometriosis. We discussed that the only way to diagnose endometriosis is with surgery, but we can empirically treat. - will increase OCP to a higher dose of estrogen to see if that helps. Sprintec Rx sent. We also discussed taking scheduled ibuprofen 2 days before periods start. - RTC 2-3 months Encounter for routine follow-up 01/11/2022 07/03/2024 Assessment & Plan (01/22/2024 10:24 AM EDT): Recovering appropriately from C section. Continue pelvic rest x4-6 weeks. Mood appropriate with help at home. Primarily formula feeding. Discussed contraceptive options. Not a candidate for IUD given bicornuate uterus. Reviewed Nexplanon, POP, combined OCP, patch, Nuva Ring. Pt most interested in patch currently. Pamphlet given. F/up counseling at next visit. Assessment & Plan (01/11/2022 11:55 AM EDT): - normal visit - declines contraception - discussed start paps at 23yo - discussed that with bicornuate uterus, she is likely to have a breech/malpresentation again in future pregnancies - RTC as needed Encounters Date Type Department Care Team Description 09/26/2024 3:13 PM EDT - 09/26/2024 9:30 PM EDT Hospital Encounter [facility] [address] [place] [address] Sachin Manuel MD Depressive disorder (Primary Dx) Discharge Disposition: Home or Self Care 09/26/2024 Travel 09/25/2024 10:40 AM EDT Office Visit Obstetrics & Gynecology [address] [place] [address] Emma Carter MD Irregular menstruation, unspecified (Primary Dx); Encounter for surveillance of transdermal patch hormonal contraceptive device; Severe episode of recurrent major depressive disorder, without psychotic features (CMS/HCC); Nonsuicidal self-injury (CMS/HCC); Passive suicidal ideations 09/25/2024 Travel 07/14/2024 Telephone Obstetrics & Gynecology [address] [place] [address] Renetta Alexis MD 07/14/2024 Results Follow-Up Obstetrics & Gynecology [address] [place] [address] Renetta Alexis MD 07/03/2024 8:45 AM EDT Office Visit Obstetrics & Gynecology [address] [place] [address] Renetta Alexis MD Pap smear for cervical cancer screening (Primary Dx); Encounter for initial prescription of transdermal patch hormonal contraceptive device 07/03/2024 Travel from Last 3 Months Immunizations Immunization Administration Dates Next Due Hep A, ped/adol, 2 dose 10/31/2017,04/27/2017 Meningococcal MCV4P 01/24/2019 Tdap 11/19/2023 Family History Medical History Relation Name Comments No Known Problems Father No Known Problems Mother Relation Name Status Comments Father Mother Social History Tobacco Use Types Packs/Day Years Used Date Smoking Tobacco: Never Smokeless Tobacco: Never Tobacco Cessation:Counseling Given: Not Answered Alcohol Use Standard Drinks/Week Comments Yes 0 (1 standard drink = 0.6 oz pur e alcohol) PHQ-2 Answer Date Recorded Patient Health Questionnaire-2 Score 4 09/26/2024 [place] Depression Scale Answer Date Recorded [place] Depression Scale Total 0 02/20/2024 The thought [...] drink first t enedina in the morning (EYE-WELT EDGE ROUNDER) to steady your nerves or to get rid of a hangover? 0 09/26/2024 CAGE Questionnaire Score 0 025 Comments No Sex and Gender Information Value Date Recorded Sex Assigned at Not on file Legal Sex Female 10:49 AM EDT Gender Identity Not on file Sexual Orientation Not on file Last Filed Vital Signs Vital Sign Reading Time Taken Comments Blood Pressure 97/61 09/26/2024 9:10 PM EDT Pulse 68 09/26/2024 9:14 PM EDT Temperature 36.4 C (97.5 F) 09/26/2024 9:14 PM EDT Respiratory Rate 16 07/03/2024 8:50 AM EDT Oxygen Saturation 96% 09/26/2024 9:10 PM EDT Inhaled Oxygen Concentration - - Weight 63 kg (138 lb 12.8 oz) 09/26/2024 3:11 PM EDT Height 160 cm (5' 3 ) 09/26/2024 3:11 PM EDT Body Mass Index 24.59 09/26/2024 3:11 PM EDT Plan of Treatment Upcoming Encounters Date Type Department Care Team (Late st Contact Info) Description 12/10/2024 2:20 PM EDT Office Visit Obstetrics & Gynecology [address] [place] [address] Emma Carter MD [address] [place] [address] Health Maintenance Due Date Last Done Comments [facility]-Infant/Child/Adol SDOH Screenings 2002 [facility]-Varicella Vaccines (1 of 2 - 13+ 2-dose series) 09/11/2015 HPV Vaccines (1 - 3-dose series) 2017 [facility]- SDOH Screenings 2020 [facility]-Adult SDOH Screenings 2020 [facility]-Hepatitis B Vaccines (1 of 3 - 19+ 3-dose series) 2021 [facility]-Pap Smear 09/11/2023 [id number]-[id number]-89 Vaccine (3 - 2023- season) 2023 01/20/2021, 12/30/2020 [facility]-Chlamydia and Gonorrhea Screening 06/27/2024 06/28/2023, 06/28/2023 [facility]-Influenza Vaccine (#1) 2024 [facility]-Depression Screening 09/26/2025 025, 09/26/2024, 02/20/2024 [facility]-DTaP,Tdap,and Td Vaccines (2 - Td or Tdap) 11/18/2033 11/19/2023 [facility]-Zoster Vaccines (1 of 2) 2052 [facility]-Hepatitis A Vaccines Completed 10/31/2017, 04/03 [facility]-Hepatitis C Screening Completed 2023, 05/26/2021, 11/30/2020 [facility]-Obesity Intervention Completed 025, 07/03/2024, 02/20/2024, Additional history exists [facility]-HIV Screening Completed 09/26/2024, 06/28/2023 [facility]-HIB Vaccines Aged Out No longer e ligible based on patient's age to complete this topic [facility]-IPV Vaccines Aged Out No longer e ligible based on patient's age to complete this topic [facility]-Pneumococcal Vaccine: Pediatrics (0 to 5 Years) and At-Risk Patients (6 to 49 Years) Aged Out No longer eligible based on patient's age to complete this topic [facility]-Rotavirus Vaccines Aged Out No lo nger eligible based on patient's age to complete this topic Procedures Procedure Name Priority Date/Time Associated Diagnosis Comments HIV 1/2 ANTIBODY/ANTIGEN SCREEN WITH REFLEX TO HIV I/II DIFFERENTIATION STAT 09/26/2024 3:51 PM EDT HEMOGLOBIN A1C STAT 09/26/2024 3:51 PM EDT FREE T4, PLASMA STAT 09/26/2024 3:51 PM EDT TSH STAT 09/26/2024 3:51 PM EDT HIV 1/2 ANTIBODY/ANTIGEN SCREEN W/REFLEX TO HIV 1/2 ANTIBODY DIFFERENTIATION STAT 09/26/2024 3:51 PM EDT HEPATITIS C ANTIBODY WITH REFLEX TO HCV QUANT PCR - EMPATH STAT 09/26/2024 3:51 PM EDT HEPATITIS B SURFACE ANTIGEN - EMPATH STAT 09/26/2024 3:51 PM EDT CBC WITH AUTO DIFFERENTIAL STAT 09/26/2024 3:51 PM EDT REFERRED THINPREP PAP REFLEX TO HPV (SO) Routine 07/03/2024 9:07 AM EDT Pap smear for cervical cancer screening HEPATITIS C ANTIBODY W/REFLEX TO HCV QUANT PCR Routine 06/28/2023 9:34 AM EDT state, incidental CHLAMYDIA TRACHOMATIS DNA BY PCR Routine 06/28/2023 9:34 AM EDT state, incidental from Last 3 Months or Most Recently Relevant to Health Maintenance Results * Hepatitis B Surface Antigen - Empath (09/26/2024 3:51 PM EDT) Hepatitis B Surf Antigen Negative Negative 09/26/2024 6:35 PM EDT [facility] Blood Venous blood specimen / Unknown Venipuncture / Unknown 09/26/2024 3:51 PM EDT 09/26/2024 3:54 PM EDT Irish Vasquez BILLET GRINDER LAB BLOOD ORDERABLES Valentina l Result Performing Organization Address City/[facility]/ZIP Co de Phone Number [facility] [address] [place] [address] * Hepatitis C Antibody with Reflex to HCV Quant PCR - Empath (09/26/2024 3:51 PM EDT) Pathologist [facility] Hepatitis C Antibody Negative Negative 09/26/2024 5:34 PM EDT [facility] Blood Venous blood specimen / Unknown Venipuncture / Unknown 09/26/2024 3:51 PM EDT 09/26/2024 3:54 PM EDT Irish Vasquez BILLET GRINDER LAB BLOOD ORDERABLES Valentina l Result Performing Organization Address [facility]/ZIP Co de Phone Number [facility] [address] [place] [address] * HIV 1 & 2 Antibody/Antigen Screen (09/26/2024 3:51 PM EDT) Pathologist [facility] HIV 1 & 2 Antibody/Antigen Screen Non Reactive Non Reactive 09/26/2024 5:34 PM EDT [facility] Comment:Screening for HIV 1 & 2 antibodies, and P24 antigen is NONREACTIVE. No confirmatory testing is required. Blood Venous blood specimen / Unknown Venipuncture / Unknown 09/26/2024 3:51 PM EDT 09/26/2024 3:54 PM EDT Irish Vasquez BILLET GRINDER LAB BLOOD ORDERABLES Valentina l Result [facility] [address] [place] [address] * (ABNORMAL) CBC w/diff (09/26/2024 3:51 PM EDT) [facility] WBC Count 4.27 3.70 - 10.30 10*3/uL LAB HEMATOLOGY METHOD 09/26/2024 5:13 PM EDT [facility] RBC Count 4.48 3.90 - 5.20 10*6/uL LAB HEMATOLOGY METHOD 09/26/2024 5:13 PM EDT [facility] HGB 9.7(L) 11.2 - 15.7 g/dL LAB HEMATOLOGY METHOD 09/26/2024 5:13 PM EDT [facility] HCT 33.0(L) 34.0 - 45.0 % LAB HEMATOLOGY METHOD 09/26/2024 5:13 PM EDT [facility] Platelet Count 205 155 - 369 10*3/uL LAB HEMATOLOGY METHOD 09/26/2024 5:13 PM EDT [facility] MCV 74(L) 79 - 98 fL LAB HEMATOLOGY METHOD 09/26/2024 5:13 PM EDT [facility] MCH 21.7(L) 26.0 - 32.0 pg LAB HEMATOLOGY METHOD 09/26/2024 5:13 PM EDT [facility] MCHC 29.4(L) 30.7 - 35.5 g/dL LAB HEMATOLOGY METHOD 09/26/2024 5:13 PM EDT [facility] RDW 17.7(H) 11.5 - 14.5 % LAB HEMATOLOGY METHOD 09/26/2024 5:13 PM EDT [facility] MPV 11.4 8.8 - 12.5 fL LAB HEMATOLOGY METHOD 09/26/2024 5:13 PM EDT [facility] nRBC 0.0 <=0.0 per 100 WBCs LAB HEMATOLOGY METHOD 09/26/2024 5:13 PM EDT [facility] Differential Type Automated LAB HEMATOLOGY METHOD 09/26/2024 5:13 PM EDT [facility] Neutrophils % 40 % LAB HEMATOLOGY METHOD 09/26/2024 5:13 PM EDT [facility] Lymphocytes % 50 % LAB HEMATOLOGY METHOD 09/26/2024 5:13 PM EDT [facility] Monocytes % 7 % LAB HEMATOLOGY METHOD 09/26/2024 5:13 PM EDT [facility] Eosinophils % 2 % LAB HEMATOLOGY METHOD 09/26/2024 5:13 PM EDT [facility] Basophils % 1 % LAB HEMATOLOGY METHOD 09/26/2024 5:13 PM EDT [facility] Immature Granulocytes % 0 % LAB HEMATOLOGY METHOD 09/26/2024 5:13 PM EDT [facility] Neutrophils Absolute 1.72 1.60 - 6.10 10*3/uL LAB HEMATOLOGY METHOD 09/26/2024 5:13 PM EDT [facility] Lymphocytes Absolute 2.14 1.20 - 3.90 10*3/uL LAB HEMATOLOGY METHOD 09/26/2024 5:13 PM EDT [facility] Monocytes Absolute 0.31 0.30 - 0.90 10*3/uL LAB HEMATOLOGY METHOD 09/26/2024 5:13 PM EDT [facility] Eosinophils Absolute 0.08 0.00 - 0.50 10*3/uL LAB HEMATOLOGY METHOD 09/26/2024 5:13 PM EDT [facility] Basophils Absolute 0.02 0.00 - 0.10 10*3/uL LAB HEMATOLOGY METHOD 09/26/2024 5:13 PM EDT [facility] Immature Granulocytes Absolute 0.00 0.00 - 0.06 10*3/uL LAB HEMATOLOGY METHOD 09/26/2024 5:13 PM EDT [facility] Blood Venous blood specimen / Unknown Venipuncture / Unknown 09/26/2024 3:51 PM EDT 09/26/2024 3:54 PM EDT Narrative [facility] - 09/26/2024 5:13 PM EDT Therapeutic decision making should be based on absolute values, rather than percentages. us Irish Vasquez APRN LAB BLOOD ORDERABLES Valentina l Result [facility] [address] [place] [address] * Thyroid Stimulating Hormone, Plasma (09/26/2024 3:51 PM EDT) Thyroid Stimulating Hormone, Plasma 1.42 0.40 - 4.20 uIU/mL 09/26/2024 5:28 PM EDT [facility] Blood Venous blood specimen / Unknown Venipuncture / Unknown 09/26/2024 3:51 PM EDT 09/26/2024 3:54 PM EDT Narrative [facility] - 09/26/2024 5:28 PM EDT Trimester Specific Ranges TSH ( IU/mL) 1st Trimester 0.1 - 3.0 2nd Trimester 0.19 - 4.06 3rd Trimester 0.3 - 3.7 Yoke Jennifer Zelos [employer] BILLET GRINDER LAB BLOOD ORDERABLES Valentina l Result Performing Organization Address [facility] de Phone Number [facility] [address] [place] [address] * Free T4, Plasma (09/26/2024 3:51 PM EDT) Free T4, Plasma 1.1 0.8 - 1.7 ng/dL 09/26/2024 5:28 PM EDT [facility] Blood Venous blood specimen / Unknown Venipuncture / Unknown 09/26/2024 3:51 PM EDT 09/26/2024 3:54 PM EDT Narrative [facility] - 09/26/2024 5:28 PM EDT Free T4 Trimester Specific Ranges 1st Trimester 0.9 - 1.50 ng/dL 2nd Trimester 0.7 - 1.40 ng/dL 3rd Trimester 0.7 - 1.24 ng/dL Yoke Jennifer Zelos [employer] BILLET GRINDER LAB BLOOD ORDERABLES Valentina l Result Performing Organization Address [facility] [place] [address] * Hemoglobin A1c (09/26/2024 3:51 PM EDT) Hemoglobin A1c 5.3 <5.7 % 09/30/2024 7:10 AM EDT [facility] Blood Venous blood specimen / Unknown Venipuncture / Unknown 09/26/2024 3:51 PM EDT 09/26/2024 3:54 PM EDT Narrative [facility] - 09/30/2024 7:10 AM EDT HA1C Interpretive Data: Diagnosis of Diabetes: Diabetic > or = 6.5% Pre-diabetic 5.7 to 6.4% Non-diabetic < or = 5.6% Glycemic Targets for Type I and Type II Diabetics: Non- Adults <7.0% Adults <6.0% Children and Adolescents <7.5% Source: [place] Diabetes Association. Standards of medical care in diabetes,2017. Diabetes Care.2017:40 (suppl 1):S1-S135. us Irish Vasquez APRN LAB BLOOD ORDERABLES Valentina love Result [facility] [address] [place] [address] * Referred ThinPrep Pap Reflex to HPV (SO) (07/03/2024 9:07 AM EDT) Pap, Source Cx/Vagina 07/10/2024 8:53 AM EDT [facility] (Target Data) EER Referred ThinPrep Pap Test See Note 07/10/2024 8:53 AM EDT [facility] (Target Data) Pap, ThinPrep Normal 07/10/2024 8:53 AM EDT [facility] (Target Data) Swab Vaginal and cervical cytologic material / Unknown Non-blood Collection / Unknown 07/03/2024 9:07 AM EDT 07/03/2024 12:54 PM EDT Narrative [facility] (Target Data) - 07/10/2024 8:53 AM EDT Authorized individuals can access the [facility] Enhanced Report with an [facility] Connect account using the following link. Your local lab can assist you in obtaining the patient report if you don't have a Connect account. [email or web address] Performed By: [employer] [address] [place] [address] [address] Attendant: Yariel Mix MD, PhD CLIA Number: [id number] SPECIMEN PART A. Cervical, Endocervical, Vaginal, ThinPrep Pap (Generator Man) CYTOLOGY HX Date of Last Menstrual Period: N FINAL DIAGNOSIS INTERPRETATION: Negative for Intraepithelial Lesion or Malignancy. SPECIMEN ADEQUACY:Satisfactory for evaluation. Endocervical/transformation zone component present. Electronically Signed Out : [email or web address] Performed by: [facility] [address] [place] [address] Althea Dunn MD, Renetta Alexis MD LAB REF LAB BLOOD AND FL UID ORD Final Result [facility] ([facility]) [address] [place] [id number] * Chlamydia trachomatis DNA by PCR (06/28/2023 9:34 AM EDT) Chlamydia trachomatis DNA PCR Result Not Detected Not Detected 06/29/2023 11:01 AM EDT [facility] Urine Urine specimen / Unknown Non-blood Collection / Unknown 06/28/2023 9:34 AM EDT 06/28/2023 12:50 PM EDT Narrative [facility] - 06/29/2023 11:01 AM EDT This test is performed by the [employer] m2000 instrument for Real Time PCR C. trachomatis and N. gonorrhea. This test is FDA approved for use with endocervical, vaginal, and urine specimens. This test is used for clinical purposes. It should not be regarded as invesigational or for research. The [facility]biology [facility] is certified under the Clinical Laboratory Improvement Amendments of 1988 (CLIA-88) as qualified to perform high complexity clinical laboratory testing. us Renetta Alexis MD LAB MICROBIOLOGY - GENER AL ORDERABLES Final Result [facility] [address] [place] [address] * Hepatitis C Antibody (06/28/2023 9:34 AM EDT) Pathologist [facility] Hepatitis C Antibody Negative Negative 06/28/2023 1:29 PM EDT [facility] Blood Venous blood specimen / Unknown Venipuncture / Unknown 06/28/2023 9:34 AM EDT 06/28/2023 12:58 PM EDT us Renetta Alexis MD LAB BLOOD ORDERABLES Fin al Result [facility] [address] [place] [address] from Last 3 Months or Most Recently Relevant to Health Maintenance Insurance ANTHEM Care Teams Remanufacturing Technician Relationship Specialty Start Date End Date Dana Haile APRN [address] [facility] [address] [place] [phone] PCP - General 09/23/24
--- OUTSIDE RECORDS SUMMARY | 2024-10-01 17:33 | XMS_ITS | Encounter Summary ---
Author Organization Healthcare Address [address] [place] [address] Care Team Providers Care Global Logistics Manager Name Role Phone Dana Haile MARILEE Primary Care Provider [phone]- [phone] Encounter Details Date Type Department Care Team (Latest Contact Info) Description 09/26/2024 Travel Social History Tobacco Use Types Packs/Day Years Used Date Smoking Tobacco: Never Smokeless Tobacco: Never Alcohol Use Standard Drinks/Week Comments Yes 0 (1 standard drink = 0.6 oz pur e alcohol) PHQ-2 Answer Date Recorded Patient Health Questionnaire-2 Score 4 09/26/2024 [place] Depression Scale Answer Date Recorded [place] Depression Scale Total 0 02/20/2024 The thought [...] drink first t enedina in the morning (EYE-POLLS OR SURVEYS INTERVIEWER) to steady your nerves or to get [...] than half the days 09/26/2024 3:13 PM JOEYT Pola Narayanan RN Trouble falling or staying asleep, or sleeping too much More than half the days 09/26/2024 3:13 PM JOEYT Pola Narayanan RN Feeling tired or having little energy More than half the days 09/26/2024 3:13 PM JOEYT Pola Narayanan RN Poor appetite or overeating More than half the days 09/26/2024 3:13 PM JOEYT Pola Narayanan RN Feeling bad about yourself - or that you are a failure or have let yourself or your family down More than half the days 09/26/2024 3:13 PM JOEYT Pola Narayanan RN Trouble concentrating on things, such as reading the newspaper or watching television More than half the days 09/26/2024 3:13 PM JOEYT Pola Narayanan RN Moving or speaking so [...] Narayanan RN documented as of this encounter Plan of Treatment Upcoming Encounters Date Type Department Care Team (Late st Contact Info) Description 12/10/2024 2:20 PM EDT Office Visit Obstetrics & Gynecology [address] [place] [address] Emma Carter MD [address] [place] [address] documented as of this encounter Visit Diagnoses Not on filedocumented in this encounter Additional Health Concerns Assessment Noted Time PHQ-9 Depression Total Score: 18 025 3:13 PM EDT A fall risk assessment has been complete d for the patient 09/25/2024 11:33 AM EDT A Body Mass Index follow-up plan has been documented for the patient 09/25/2024 7:07 PM EDT documented as of this encounter Care Teams Global Logistics Manager Relationship Specialty Start Date End Date Dana Haile APRN [facility] [address] [facility] [place] [phone] PCP - General 09/23/24 documented as of this encounter
--- OUTSIDE RECORDS SUMMARY | 2024-10-01 17:33 | XMS_ITS | Encounter Summary ---
Author Organization Healthcare Address [address] [place] [address] Care Team Providers Care Pododermatologist Name Role Phone Bubba Bhatt MD Primary Care Provider [phone] Encounter Details Date Type Department Care Team (Late st Contact Info) Description 07/14/2024 Telephone Obstetrics & Gynecology [address] [place] [address] Renetta Alexis MD [address] [place] [address] Social History Tobacco Use Types Packs/Day Years Used Date Smoking Tobacco: Never Smokeless Tobacco: Never Alcohol Use Standard Drinks/Week Comments Never 0 (1 standard drink = 0.6 oz pur e alcohol) PHQ-2 Answer Date Recorded Patient Health Questionnaire-2 Score 0 07/03/2024 Liberty Depression Scale Answer Date Recorded Liberty Depression Scale Total 0 02/20/2024 The thought of harming myself has occurred to me . Never 02/20/2024 PHQ-9 Answer Date Recorded Patient Health Questionnaire-9 Score 0 07/03/2024 Comments No Sex and Gender Information Value Date Recorded Sex Assigned at Not on file Legal Sex Female 10:49 AM EDT Gender Identity Not on file Sexual Orientation Not on file documented as of this encounter Miscellaneous Notes * Telephone Encounter - Jennifer Jain Phillip - 07/21/2024 11:39 AM EDT Clinical Concern/Question Reason for Call: Patient is calling to speak with someone regarding her BC patch not sticking Best contact number: [phone] (home) Optimal time of day to reach caller: ANYTIME Additional comments/information from caller: Not Applicable Note: Please do not reply to this message. Follow-up communication and further actions as a result of this message need to be communicated with the patient directly, if the patient is not active onMyChart. If the patient is active on MyChart, they will receive notification of the communication/outcome via MyChart. * Telephone Encounter - Natalio Anderson - 07/14/2024 3:13 PM EDT Discussed, normal pap * Telephone Encounter - Jennifer Jain - 07/14/2024 2:07 PM EDT Clinical Concern/Question Reason for Call: Patient is returning a missed call to clinic regarding results Best contact number: [phone] (home) Optimal time of day to reach caller: ANYTIME Additional comments/information from caller: Not Applicable Note: Please do not reply to this message. Follow-up communication and further actions as a result of this message need to be communicated with the patient directly, if the patient is not active onMyChart. If the patient is active on MyChart, they will receive notification of the communication/outcome via MyChart. documented in this encounter Plan of Treatment Upcoming Encounters Date Type Department Care Team (Late st Contact Info) Description 12/10/2024 2:20 PM EDT Office Visit Obstetrics & Gynecology [address] [place] [address] Emma Carter MD [address] [place] [address] documented as of this encounter [...] documented as of this encounter Care Teams Pododermatologist Relationship Specialty Start Date End Date Bubba Bhatt MD [address] [place] [address] PCP - General 04/19/22 09/22/24 documented as of this encounter
--- OUTSIDE RECORDS SUMMARY | 2024-10-01 17:33 | XMS_ITS | Patient Health Record ---
Author Organization [facility] [place] Address [address] [facility] [address] [facility] [address] [place] [address] Care Team Providers Care Staff Forester Name Role Phone Dana Haile Primary Care Provider [phone] DANA HAILE Unavailable Unavaila Manuel Mercer Unavailable [phone] Vidhi Pemberton Unavailable [phone] Dana Solano Unavailable [phone] Migration, Provider Unavailable Unavailable Allergies No Known Allergies Results Component Value Reference Range Notes Rapid Strep Reviewed date:09/04/2024 04:47:45 PM Interpretation:Negative Performing Lab: Notes/Report: Negative Rapid screen Negative X ray : Hand, Right Reviewed date:07/02/2024 09:13:04 AM Interpretation: Performing Lab: Notes/Report: Reason For Referral Referring Provider First Name Grayson Referring Provider Last Name Lonnie Referred Provider Manuel Felix Referral Priority Routine Reason [facility] Behavioral Healt h Diagnosis 1 Severe episode of re current major depressive disorder, without psychotic features (F33.2) Referral Organization [facility] AMANUEL US Referring Provider First Name Dana Referring Provider Last Name Lazara Referring Provider Speciality Family Pra ctice Referred Organization [facility] Referred Address [address], [place],[address], Referred Provider Specialty Behavioral H ealt General Notes Delores Marroquin 2024 10:55:18 AM >sent to [facility] Behavioral Health at [facility] Referral Priority Routine Medications Medication SIG (Take, Route, Frequency, Duration) Notes Start Date End Date Status Escitalopram Oxalate 10 MG 1 tab(s) oral ly once a day 06/17/2024 Active Norelgestromin-Eth Estradiol 150-35 MCG/24HR as directed Transdermal Active busPIRone HCl 5 MG 1 tab(s) orally 2 ti mes a day Active ARIPiprazole 5 MG 1 tablet Orally Once a day; Duration: 30 days 09/30/2024 Active Social History Tobacco Use: Social History Observation Description Date Details (start date - stop date) Never Smoker NA - NA Tobacco Control (Standard) Question Answer Notes Tobacco use: Nonsmoker Problems Problem Type SNOMED Code ICD Code Onset Dates Problem Status W/U Status Risk Notes Problem Chronic rhinitis (88546995) Chronic rhinitis (J31.0) Active confirmed Problem Mixed anxiety and depressive disorder (643044517) Depression with anxiety (F41.8) Active confirmed Problem Severe episode of recurrent major depressive disorder, without psychotic features (F33.2) Active confirmed Vital Signs Heart Rate 80 /min 09/30/2024 Temperature 97.8 degrees Fahrenheit 09/30/2024 Blood pressure diastolic 62 mm Hg 09/30/2024 Height 5ft 3in in 09/30/2024 Blood pressure systolic 96 mm Hg 09/30/2024 Weight 137.2 lbs 09/30/2024 BMI 24.3 kg/m2 09/30/2024 Encounters Encounter Location Date Provider Diagnosis [facility] [place] [address] [place] [address] [place] [address] 07/05/2024 Provider Migration [facility] [place] [address] [place] [address] 05/20/2024 Dana Haile Depression with anxiety F41.8 and Encounter to establish care with new doctor Z76.89 [facility] [place] [address] [place] [address] [place], [place] [address] 06/17/2024 Dana Lazara Depression with anxiety F41.8 [facility] [place] [address] [place] [address] [place] [address] 06/23/2024 Manuel Felix Infective pharyngitis J02.9 ; Chronic rhinitis J31.0 and Abdominal cramps R10.9 [facility] [place] [address] [place] [address] [place] [address] 06/30/2024 Dana Haile Right hand pain M79.641 and Acute traumatic pain G89.11 [facility] [place] [address] [place] [address] 09/02/2024 Vidhi Pemberton Depression with anxiety F41.8 [facility] [address] [place] [address] 09/04/2024 Dana Solano Sore throat J02.9 and Viral URI J06.9 [facility] [address] [place] [address] 09/30/2024 Dana Haile Severe episode of recurrent major depressive disorder, without psychotic features F33.2 and Nonsuicidal self-harm R45.88 [facility] [place] [address] [place] [address] 05/12/2024 Manuel Felix [facility] [address] [facility] [address] [place] [address] 07/01/2024 Dana Haile Assessments Encounter Date Diagnosis (ICD Code) Assessment Notes Treatment Notes Treatment Clinical Notes Section Notes 05/20/2024 Depression with anxiety (ICD-10 - F41.8) Feels like she did well on lexapro previously. Discussed rationale for pharmacotherapy , and discussed MOA of med. Discussed time course of expected improvements, and discussed side effect of nausea, sexual dysfunction and mental status changes - and need for urgent evaluation if agitation occurs. Discussed need for f/u in office. We also discussed starting counseling which she will consider 05/20/2024 Encounter to establish care with new doctor (ICD-10 - Z76.89) history reviewed 06/17/2024 Depression with anxiety (ICD-10 - F41.8) Tolerating Lexapro well, recommend increase to 10 mg nightly and follow-up again in about 6 weeks but sooner with any concerns. Also encouraged her to consider counseling which she will think about. 06/23/2024 Chronic rhinitis (ICD-10 - J31.0) Treat with antibiotics given the green discoloration and the length of therapy. Also nasal steroids. Discussed allergen avoidance. 06/23/2024 Infective pharyngitis (ICD-10 - J02.9) 06/30/2024 Right hand pain (ICD-10 - M79.641) suspect more of a soft tissue injury but rec imaging given her decreased ROM, encouraged RICE, ibuprofen and tylenol as needed for pain. FU on imaging when available. 06/30/2024 Acute traumatic pain (ICD-10 - G89.11) 09/02/2024 Depression with anxiety (ICD-10 - F41.8) Well controlled on current regimen. No changes made today. Discussed s/s of worsening mood/agitation that warrant FU. RTC in 3-4 months for routine med check or sooner prn 09/04/2024 Viral URI (ICD-10 - J06.9) Reassurance. [...] understanding and are agreeable to this plan. 09/04/2024 Sore throat (ICD-10 - J02.9) 09/30/2024 Severe episode of recurrent major depressive [...] health. 09/30/2024 Nonsuicidal self-harm (ICD-10 - R45.88) 06/23/2024 Abdominal cramps (ICD-10 - R10.9) Cramps are nonspecific, possibly abdominal versus menstrual, she feels okay after some ibuprofen. Given the fact that Lexapro is helping her have encouraged her to continue taking the medicine. We Discussed her follow-up in 4 weeks and if she is not better discuss the case again Plan Of Treatment Next Appt Details Provider Name:Dana Padilla ce, 10/07/2024 10:45:00 AM, [address] [place] [facility] [address], [place], [address], Insurance Providers Payer Name Payer Address Payer Phone Subscriber Number Group Number Insured Name Patient Relationship to Insured Coverage Start Date Coverage End Date [facility] [address] [place] [address] [id number] Cornel Espinoza Self - patient is the insured Medical (General) History Medical History History ICD Code anxiety depression anemia Bicornuate uterus Surgical History Surgery Date(Month/Year) C section Extraction of [place] Teeth Vaginal with Breech Infant Hospitalization History Reason Date(Month/Year) [facility] Jan 07, 2024 [facility] Dec
--- NOTE | 2024-10-01 17:35 | ECG_ITS ---
APPROVED REPORT Exam: Resting ECG HR:66 bpm ECG Measurements Heart Rate 66 AXES WI 157 P 53 QRSd 82 QRS 58 QT 353 T 25 QTc 367 Conclusion SINUS RHYTHM NORMAL ECG UNCONFIRMED REPORT Electronically signed by : Reg Medina, 10/01/2024 21:38:09
[2024-10-01 17:36] VITALS: BP 122/72; PULSE 71; RESP 19; TEMP 36.6; O2SAT 99; BMI 24.4
--- NOTE | 2024-10-01 17:43 | ED_ITS ---
<Statement entered by Mary Medina MD - 10/01/24 21:31> I was consulted by the SELVIN, and we discussed the complexity of the problems being addressed. I approved the treatment and management plan for this patient's care in the emergency department, thus performing a substantive portion of the medical decision making. Mary Medina MD, CARSON, FACEP Discharge Plan Disposition Patient Disposition: Home, Self-Care Condition: Good Prescriptions Prescriptions: No Action venlafaxine 37.5 mg capsule,extended release 24hr 37.5 mg PO DAILY etonogestrel-ethinyl estradiol [EluRyng] 0.12-0.015 mg/24 hr ring VAGINAL doxylamine-pyridoxine (vit B6) 1 EACH tablet,delayed release (DR/EC) 1 each PO TID Qty: 20 2RF ondansetron HCl 4 mg Tablet 4 mg PO Q8H PRN (Reason: Nausea) Qty: 20 0RF hyoscyamine sulfate [Levsin/SL] 0.125 mg tablet, sublingual 0.125 mg PO Q8H PRN (Reason: dyspepsia) Qty: 10 0RF Referrals Follow up/Referrals: Dana Haile APRN [Primary Care Provider, Medical] - See instructions Activity Restrictions/Add. Instructions Additional Instructions/Restrictions: Today you were evaluated in the emergency department for syncope. Your workup was normal. Your syncope is most likely related to the Abilify that you recently started. Please stop this medication. Call your doctors office tomorrow and discuss this. Return to the ED for worsening of condition. Clinical Impressions Clinical Impression: Syncope Qualifiers: Syncope type: unspecified Qualified Code(s): R55 - Syncope and collapse Instructions Patient Instructions: DI for Syncope in Adults (Fainting) Print Language Print Language: Cymraes Discharge ED Provider: Mary Medina General Adult [facility] General Chief complaint: Syncope Stated complaint: passing out x 3 Time Seen by Provider: 10/01/24 17:26 Mode of Arrival: Ambulatory Source of Information: Patient Description of Symptoms (Recalled from ER Triage Doc. by RN): Patient presents to ED with reports of having two syncopal episodes today. States she was sitting during both and did not fall or sustain any injury. Patient also notes a third episode where she felt fainy and hot but did not pass out. Patient is alert and oriented, VSS upon arrival. Mother at bedside. History of Present Illness HPI narrative: patient is a 24-year-old female who presents to the ED with complaints of 2 episodes of syncope today. Patient states she was sitting when the episodes occur, did not experience a fall. She states that she started a new medication yesterday for her depression, Abilify. Related Data Home Medications ?Medication ?Instructions ?Recorded ?Confirmed venlafaxine 37.5 mg 37.5 mg PO DAILY Depression 04/29/19 03/04/21 capsule,extended release 24 hr etonogestrel 0.12 mg-ethinyl ea vaginal 02/01/2103/04 estradiol 0.015 mg/24 hr vaginal ring (EluRyng) Previous Rx's ?Medication ?Instructions ?Recorded doxylamine 10 mg-pyridoxine (vit 1 each PO TID #20 tab s 04/16/21 B6) 10 mg tablet,delayed release hyoscyamine sulfate 0.125 mg 0.125 mg PO Q8H PRN dyspe psia #10 10/06/22 sublingual tablet (Levsin/SL) tabs ondansetron HCl 4 mg tablet 4 mg PO Q8H PRN Nausea #20 tabs 10/06/22 Allergies Allergy/AdvReac Type Severity Reaction Status Date / Time No Known Allergies Allergy Verified 03/04/21 08:24 [facility] Disclaimer: The information contained in this section may have been updated after the patient was seen, as this information can be updated by other users. Social History Smoking Status: Current every day smoker alcohol intake: never substance use type: denies use current occupational status: student Travel in the last 8 weeks?: None household members: family Have you lived/traveled outside US in past 30 days?: No Contact w/someone who lives/traveled outside US past 30 days?: No Exposure to someone with infectious disease in past 14 days?: No Do you have a fever (greater than 100.4 F or 38 C)?: No Have you tested positive for COVID-19?: No Exposed to someone with COVID-19 in past 14 days?: No Do you have a sore throat?: No Do you have a cough?: No Do you have any weakness?: No Do you have any diarrhea?: No Are you experiencing any unusual bleeding?: No Do you have any muscle aches/pain?: No Do you have any abdominal pain?: No Are you experiencing loss of taste or smell?: No Other Medical History Have you received the Flu Vaccine for this season: No Have you received the Pneumonia Vaccine: No ROS Obtained: Yes Systems reviewed as appropriate & no additional complaints except as documented Physical Exam General General appearance: alert and in no apparent distress Head Head exam: atraumatic and normocephalic Eye Eye exam: Present normal appearance and PERRL ENT ENT exam: Present normal exam Neck Neck exam: Present normal inspection Chest Chest inspection: Present normal inspection and symmetric chest wall rise; Absent tenderness Respiratory Respiratory exam: Present normal lung sounds bilaterally Cardiovascular Cardiovascular exam: Present regular rate Abdominal Exam Abdominal exam: Present soft and normal bowel sounds; Absent tenderness Extremities Exam Extremities exam: Present normal inspection and full ROM Back Exam Back exam: Present normal inspection and full ROM Neurological Exam Neurological exam: Present alert and oriented X3 Psychiatric Psychiatric exam: Present normal affect and normal mood Skin Skin exam: Present warm and dry Medical Decision Making Medical Records Screening: Per USPSTF and CDC recommendations, given the prevalence of disease in our region, it is our hospital?s policy to screen for HIV and viral Hepatitis for all patients aged 18 and over and those with ongoing risk factors. William Inquiry Pt receiving controlled substance: No Vital Signs: 10/01/24 17:36 10/01/24 18:17 10/01/24 18:30 Temperature 98 F Temperature Source Oral Pulse Rate 75 66 Pulse Rate [Left] 71 Respiratory Rate 19 19 Blood Pressure 108/59 L 102/58 L Blood Pressure [Right Arm] 122/72 Blood Pressure Mean 69 Blood Pressure Mean [Right Arm] 88 Blood Pressure Source Blood Pressure Source [Right Arm] Automatic Cuff Blood Pressure Position Blood Pressure Position [Right Arm] Sitting 02 Sat by Pulse Oximetry 99 97 97 Oxygen Delivery Method Room Air Room Air Room Air 10/01/24 18:56 Temperature 98.7 F Temperature Source Pulse Rate 74 Pulse Rate [Left] Respiratory Rate 19 Blood Pressure 108/74 L Blood Pressure [Right Arm] Blood Pressure Mean Blood Pressure Mean [Right Arm] Blood Pressure Source Automatic Cuff Blood Pressure Source [Right Arm] Blood Pressure Position Supine Blood Pressure Position [Right Arm] 02 Sat by Pulse Oximetry Oxygen Delivery Method Room Air Lab Data Lab Results 10/01/24 17:41: WBC 5.9, RBC 5.06, Hgb 11.2 L, Hct 37.1, MCV 73.3 L, MCH 22.1 L, MCHC 30.2 L, RDW 17.6 H, Plt Count 210, MPV 10.0, Neut % (Auto) 50.0, Lymph % (Auto) 40.7, Sevier % (Auto) 7.1, Eos % (Auto) 1.7, Baso % (Auto) 0.3, Neut # (Auto) 3.0, Lymph # (Auto) 2.4, Sevier # (Auto) 0.4, Eos # (Auto) 0.1, Baso # (Auto) 0.0, Sodium 135 L, Potassium 3.9, Chloride 102, Carbon Dioxide 22, Anion Gap 14.9, BUN 16, Creatinine 0.80, Estimated Creat Clear 109, Estimated GFR 90, Est GFR ( Amer) 109, Glucose 121 H, Calcium 9.7, Total Bilirubin 0.4, AST 41 H, ALT 20, Alkaline Phosphatase 77, Troponin I < 0.01, Total Protein 8.6 H, Albumin 4.9, Globulin 3.7 H, Albumin/Globulin Ratio 1.3, Serum HCG, Qual Negative, HIV Ag/Ab Combo Qual Negative 10/01/24 17:41 07 17:41 Orders (Tests/Meds): ORDERS Category Date Time Status CBC w/Auto Diff [Complete Blood Count Auto Diff] Stat Lab 10/01/24 17:41 Completed CMP [Comprehensive Metabolic Panel] Stat Lab 10/01/24 17:41 Completed HIV Combo Stat Lab 10/01/24 17:41 Completed Hepatitis C Ab Qual. W/ RFX Stat Lab 10/01/24 17:41 Received Serum [HCG Qualitative, Serum] Stat Lab 10/01/24 17:41 Completed Trop I [Troponin I] Stat Lab 10/01/24 17:41 Completed Medical Decision Narrative: In summary, patient is a 24-year-old female who presents to the ED with complaints of 2 episodes of syncope today. Patient states she was sitting when the episodes occur, did not experience a fall. She states that she started a new medication yesterday for her depression, Abilify. She denies any other complaints. Denies any recent trauma or fall. Denies transparency. States that she had a last December. Denies any recent surgeries. Denies fever, chills, headache, visual disturbances, posterior neck pain, chest pain, shortness of breath, abdominal pain, nausea, vomiting. Upon initial evaluation patient is alert, oriented and cooperative. Normal neuroexam. She is hemodynamically stable. Discussed with patient we will proceed with cardiac workup including labs. Declined chest x-ray. Differential diagnosis include ACS, electrolyte abnormality, infectious process, , among others. Hematologic labs reviewed. CBC unremarkable for any leukocytosis, stable H&H. CMP overall unremarkable for any actionable abnormalities. hCG negative. Discussed with patient that one of the side effects of Abilify is syncope. I advised her to stop this medication and to call her PCP in the morning. We discussed return precautions to the ED. I advised patient she should not drive home from the ED due to to her multiple syncopal episodes prior to arrival. She is agreeable to this. She remains hemodynamically stable. Was ambulatory from ED without difficulty. Critical Care Critical Care Time Critical Care Time: No
[2024-10-01 17:56] LABS: Hematocrit 37.1 % (37.0-47.0); Hemoglobin 11.2 g/dL (12.2-16.2); Immature Granulocytes % 0.2 %; Mean Corpuscular HGB Conc 30.2 g/dL (31.8-35.4); Mean Corpuscular Hemoglobin 22.1 pg (27.0-31.2); Mean Corpuscular Volume 73.3 fl (81-99); Nucleated Red Blood Cells % 0 %; Platelet Count 210 K/mm3 (142-424); Red Blood Count 5.06 M/mm3 (4.20-5.40); Red Cell Distribution Width-SD 46.7 fL; White Blood Count 5.9 K/mm3 (4.8-10.8)
[2024-10-01 18:13] LABS: Alanine Aminotransferase 20 U/L (12-78); Albumin Level 4.9 g/dl (3.5-5.0); Albumin/Globulin Ratio 1.3 (1.1-1.8); Alkaline Phosphatase 77 U/L (38-126); Anion Gap 14.9 mEq/L (5-15); Aspartate Amino Transferase 41 U/L (14-36); Bilirubin,Total 0.4 mg/dl (0.2-1.3); Blood Urea Nitrogen 16 mg/dl (7-17); Calcium 9.7 mg/dl (8.4-10.2); Carbon Dioxide 22 mmol/L (22.0-30.0); Chloride 102 mmol/L (98-107); Creatinine Clearance Estimated 109 mL/min (50-200); Creatinine,Serum 0.80 mg/dl (0.52-1.04); Estimated Glomerular Filt Rate 90 ml/min (>60); GFR (African American) 109 ML/MIN (>60); Globulin 3.7 g/dL (1.3-3.2); Glucose 121 mg/dl (74-100); Potassium 3.9 mmoL/L (3.5-5.1); Sodium 135 mmol/L (136-145); Total Protein,Serum 8.6 g/dl (6.3-8.2)
[2024-10-01 18:17] VITALS: BP 108/59; PULSE 75; O2SAT 97
[2024-10-01 18:26] LABS: Troponin I < 0.01 ng/ml (0.00-0.034)
[2024-10-01 18:30] VITALS: BP 102/58; PULSE 66; RESP 19; O2SAT 97
[2024-10-01 18:30] LABS: HCG Qualitative, Serum Negative (Negative)
[2024-10-01 18:56] VITALS: BP 108/74; PULSE 74; RESP 19; TEMP 37.1; O2SAT 98
[2024-10-01 19:20] LABS: Hepatitis C Ab Qual. W/ RFX NEGATIVE (Negative)
== END 2024-10-01 18:59 | disposition home or self-care (01) ==
PROVIDERS: Nurse Practitioner; Emergency Provider Student in an Organized Health Care Education/Training Program; PCP Nurse Practitioner Family
DX: R55 Syncope and collapse (principal); F17.210 Nicotine dependence, cigarettes, uncomplicated
CPT/HCPCS: 80053; 84484; 84703; 85025; 86803; 87389; 93005; 99283

== ENCOUNTER 2025-01-16 11:48 | Outpatient (CLI) | payer BC, SELFPAY ==
--- OUTSIDE RECORDS SUMMARY | 2024-07-05 17:30 | XMS_ITS ---
Author Organization [facility] Address [address] [facility] 36 [facility] [address] [place] [address] Care Team Providers Care Plate Glass Installer Name Role Phone Dana Haile Primary Care Provider DANA HAILE Unavailable Unavaila ble Migration, Provider Unavailable Unavailable REASON FOR VISIT Multum To Medispan Conversion Encounter Medications Medication SIG (Take, Route, Frequency, Duration) Notes Start Date End Date Status Escitalopram Oxalate 10 MG 1 tab(s) oral ly once a day; Duration: 30 days 06/17/2024 Active busPIRone HCl 5 MG 1 tab(s) orally 2 ti mes a day Active Encounters Encounter Location Date Provider Diagnosis [facility] [address] [place] [address] 07/05/2024 Provider Migration Plan Of Treatment No Information Progress Notes * Cornel HARRISDOB:2000 (24 yo F)Acc No.[id number]:07/05/2024 Patient: Cornel ESPITIA Provider: Lexus Reynoso :2000 A ge:23 Y S ex:Female Date:07/05/2024 Address:[address] [place] [address] [phone] Pcp:Dana Haile Subjective: * Chief Complaints: * 1 . Multum To Medispan Conversion Encounter. * Medical History: * Medications: T aking busPIRone HCl 5 MG Tablet 1 tab(s) orally 2 times a day , Taking Escitalopram Oxalate 10 MG Tablet 1 tab(s) orally once a day Objective: * Vitals: Assessment: Plan: * Treatment: * * Electronic signature of Adeel crawford Migration on 01/19/2025 at 11:51 AM EDT Sign off status: Pending * Provider: Lexus huerta Migration Date: 0 07/05/2024 Generated for Tracey noe/Inez/Gianluca on: 1 11:51 AM EDT
--- OUTSIDE RECORDS SUMMARY | 2024-07-29 05:00 | XMS_ITS ---
Author Organization [facility] Address [address] [facility] [address] [place] [address] Care Team Providers Care Sort Operations Supervisor Name Role Phone Dana Haile Primary Care Provider DANA HAILE Unavailable Unavaila ble REASON FOR VISIT 6 wk f/u Encounters Encounter Location Date Provider Diagnosis [facility] [address] [place] [address] [facility] [address] [place] [address] 07/29/2024 Dana Haile Plan Of Treatment No Information Progress Notes * Cornel HARRISDOB:2000 (24 yo F)Acc No.[id number]:07/29/2024 Progress Notes Patient: Cornel ESPITIA Provider: ROSEMARIE Miguel :2000 A ge:23 Y S ex:Female Date:07/29/2024 Address:[address] [place] [address] [phone] Subjective: * Chief Complaints: * 1 . 6 wk f/u. * Medical History: Objective: * Vitals: Assessment: Plan: * Treatment: * * Electronic signature of Sarah Haile APRN on 01/19/2025 at 11:52 AM EDT Sign off status: Pending * Provider: ROSEMARIE Miguel Date: 0 07/29/2024 Generated for Printi ng/Faxing/eTransmitting on: 1 11:52 AM EDT
--- OUTSIDE RECORDS SUMMARY | 2024-11-28 07:15 | XMS_ITS ---
Author Organization [facility] Address [address] [place] [facility] [address] [place] [address] Care Team Providers Care Tractor Sweeper Operator Name Role Phone Dana Haile Primary Care Provider DANA HAILE Unavailable Unavaila ble Allergies No [...] Once a day; Duration: 30 days 09/30/2024 Kathy westbrook Vital Signs Temperature 98.3 degrees Fahrenheit 11/29/19 25 Blood pressure systolic 100 mm Hg 11/29/19 25 Blood pressure diastolic 64 mm Hg 025 Heart Rate 68 /min 11/28/2024 Height 5ft 3in in 11/28/2024 Weight 143 lbs 11/28/2024 BMI 25.33 kg/m2 11/28/2024 Encounters Encounter Location Date Provider Diagnosis [facility] [address] [address] 11/28/2024 Dana Haile Sore throat J02.9 Assessments [...] Notes * Cornel HARRISDOB:2000 (24 yo F)Acc No.[id number]:11/28/2024 Progress Notes Patient: Cornel ESPITIA Provider: ROSEMARIE Miguel :2000 A ge:24 Y S ex:Female Date:11/28/2024 Address:[address] [place], [place] [id number] Subjective: * Chief Complaints: * 1 . [...] without rashes. Assessment: * Assessment: 1. S [facility] throat - J02.9 (Primary) Plan: * Treatment: [...] 11/28/2024 Generated for Tracey noe/Inez/Julio Césaritting on: 11:52 AM EDT History and Physical Notes * HPI [...]
[2025-01-16 20:18] LABS: Coronavirus 19, PCR Not Detected (NotDetected); Influenza A, PCR Not Detected (NotDetected); Influenza B, PCR Not Detected (NotDetected)
--- OUTSIDE RECORDS SUMMARY | 2025-01-19 11:52 | XMS_ITS | Patient Health Record ---
Author Organization [facility] Address [address] [place] [address] Care Team Providers Care Machinery Mover Name Role Phone Dana Ford [phone] Allergies No Known Allergies Reason For Referral [...] tobac co user? 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) Active confirmed Problem Primigravida (736641852) Supervision of normal first in second trimester (Z34.02) Active confirmed Problem Third trimester (72348710) Encounter for supervision of other normal in third trimester (Z34.83) Active confirmed Problem Footling breech presentation, single or unspecified fetus (O32.8XX0) Active confirmed Plan Of Treatment No Information Insurance Providers Payer Name Payer Address Payer Phone Subscriber Number Group Number Insured Name Patient Relationship to Insured Coverage Start Date Coverage End Date Daren VALDEZ [address] [place] [address] [id number] Cornel Fleming Self - patient is the insured Medical (General) History Medical History History ICD Code Anxiety bicornuate uterus Surgical History Surgery Date(Month/Year)
--- OUTSIDE RECORDS SUMMARY | 2025-01-19 11:52 | XMS_ITS | Clinical Summary ---
Author Organization [facility] Address [address] [place] [address] Care Team Providers Care Burn Crew Member Name Role Phone Dana Haile MARILEE Primary Care Provider [phone] Allergies No known active allergies Medications busPIRone [...] Encounters Date Type Department Care Team Description 01/19/2025 Telephone Obstetrics & Gynecology [address] [place] [address] Renetta Alexis MD [facility] Clinical Concern/Question (ED FU ARACELI) from Last 3 Months Immunizations Immunization Administration [...] Recorded Patient Health Questionnaire-2 Score 4 09/26/2024 [place] Depression Scale Answer Date Recorded [place] Depression Scale Total 0 02/20/2024 The thought [...] drink first t enedina in the morning (EYE-BATON TWIRLER) to steady your nerves or to get [...] [facility]Y-Chlamydia and Gonorrhea Screening 06/27/2024 06/28/2023, 06/28/2023 [id number] Vaccine (3 - 2024- season) 2024 01/20/2021, [...] Antibody/Antigen Screen (09/26/2024 3:51 PM EDT) Pathologist [facility] HIV 1 & 2 Antibody/Antigen Screen Non Reactive Non Reactive 09/26/2024 5:34 PM EDT [facility] Comment:Screening for HIV 1 & 2 antibodies, and P24 antigen is NONREACTIVE. No confirmatory testing is required. Blood Venous blood specimen / Unknown Venipuncture / Unknown 09/26/2024 3:51 PM EDT 09/26/2024 3:54 PM EDT Irish Vasquez APRN LAB BLOOD ORDERABLES Valentina love Result [facility] [address] [place] [address] * Chlamydia trachomatis DNA by PCR (06/28/2023 9:34 AM EDT) Chlamydia trachomatis DNA PCR Result Not Detected Not Detected 06/29/2023 11:01 AM EDT [facility] Urine Urine specimen / Unknown Non-blood Collection / Unknown 06/28/2023 9:34 AM EDT 06/28/2023 12:50 PM EDT [facility] - 06/29/2023 11:01 AM EDT This test is performed by the [employer] instrument for Real Time PCR C. trachomatis and N. gonorrhea. This test is FDA approved for use with endocervical, vaginal, and urine specimens. This test is used for clinical purposes. It should not be regarded as invesigational or for research. The [facility] Clinical Microbiology Laboratory is certified under the Clinical Laboratory Improvement Amendments of 1988 (CLIA-88) as qualified to perform high complexity clinical laboratory testing. Renetta Alexis MD LAB MICROBIOLOGY - GENER AL ORDERABLES Final Result Performing Organization Address City/[facility]/ZIP Co de Phone Number [facility] [address] [place] [address] * Hepatitis C Antibody (06/28/2023 9:34 AM EDT) Hepatitis C Antibody Negative Negative 06/28/2023 1:29 PM EDT [facility] Blood Venous blood specimen / Unknown Venipuncture / Unknown 06/28/2023 9:34 AM EDT 06/28/2023 12:58 PM EDT Renetta Alexis MD LAB BLOOD ORDERABLES Fin al Result Performing Organization Address City/[facility] Co de Phone Number [facility] [address] [place] [address] from Last 3 Months or Most Recently Relevant to Health Maintenance Insurance ANTH Care Teams Burn Crew Member Relationship Specialty Start Date End Date Dana Haile APRN [address] [place] [address] [facility] [address] [place] [address] PCP - General 09/23/24
--- OUTSIDE RECORDS SUMMARY | 2025-01-19 11:52 | XMS_ITS | Patient Health Record ---
Author Organization [facility] [place] Address [address] [place] [address] Care Team Providers Care In Home Nanny Name Role Phone Ralph Haile Primary Care Provider RALPH HAILE Unavailable Unavaila Manuel Mercer Unavailable [phone] Vidhi Pemberton Unavailable [phone] Ralph Solano Unavailable [phone] Migration, Provider Unavailable Unavailable Allergies No Known Allergies Results Component Value Reference Range Notes Rapid Strep Reviewed date:11/28/2024 01:55:25 PM Interpretation:Negative Performing Lab: Notes/Report: Negative Rapid screen Neg Rapid Strep Reviewed date:09/04/2024 04:47:45 PM Interpretation:Negative Performing Lab: Notes/Report: Negative Rapid screen Negative X ray : Hand, Right Reviewed date:07/02/2024 09:13:04 AM Interpretation: Performing Lab: Notes/Report: Reason For Referral Referring Provider First Name Grayson Referring Provider Last Name Lonnie Referred Provider Manuel Felix Referral Priority Routine Reason [facility] Behavioral Healt [facility] Diagnosis 1 Severe episode of re current major depressive disorder, without psychotic features (F33.2) Referral Organization [facility] AMANUEL US Referring Provider First Name Ralph Referring Provider Last Name Lazara Referring Provider Speciality Family Pra ctice Referred Organization [facility] Referred Address [address] [facility] [address] [facility], [place],[address], Referred Provider Specialty Behavioral H ealt General Notes Delores Marroquin 2024 10:55:18 AM >sent to [facility] Behavioral Health at [facility] Referral Priority Routine Medications Medication SIG [...] W/U Status Risk Notes Problem Chronic rhinitis (50340094) Chronic rhinitis (J31.0) Active confirmed Problem Mixed anxiety and depressive disorder (772072996) Depression with anxiety (F41.8) Active confirmed Problem Severe recurrent major depression without psychotic features (35559896) Severe episode of recurrent major depressive disorder, without psychotic features (F33.2) Active confirmed Vital Signs Heart Rate 68 /min 11/28/2024 Temperature 98.3 degrees Fahrenheit 11/28/2024 Blood pressure diastolic 64 mm Hg 11/28/2024 Height 5ft 3in in 11/28/2024 Blood pressure systolic 100 mm Hg 11/28/2024 Weight 143 lbs 11/28/2024 BMI 25.33 kg/m2 11/28/2024 Encounters Encounter Location Date Provider Diagnosis [facility] [address] [place], [place] [address] 07/05/2024 Provider Migration [facility] [place] [address] [place], [place] [address] 05/20/2024 [facility] Depression with anxiety F41.8 and Encounter to establish care with new doctor Z76.89 [facility] [place] [address] [place], [place] [address] 06/17/2024 Ralph Lazara Depression with anxiety F41.8 [facility] [place] [address] [place], [place] [address] 06/23/2024 Manuel Felix Infective pharyngitis J02.9 ; Chronic rhinitis J31.0 and Abdominal cramps R10.9 [facility] [place] [address] [facility] [address] [place] [address] 06/30/2024 Ralph Haile Right hand pain M79.641 and Acute traumatic pain G89.11 [facility] [place] [address] [facility] [address] [place] [address] 09/02/2024 Vidhi Nilay Depression with anxiety F41.8 [facility] [place] [address] [facility] [address] [place] [address] 09/04/2024 Ralph Salgadoell Sore throat J02.9 and Viral URI J06.9 [facility] [place] [address] [facility] [address] [place] [address] 09/30/2024 Ralph Haile Severe episode of recurrent major depressive disorder, without psychotic features F33.2 and Nonsuicidal self-harm R45.88 [facility] [place] [address] [place] [address] 10/07/2024 Ralph Haile Severe episode of recurrent major depressive disorder, without psychotic features F33.2 and Nonsuicidal self-harm R45.88 [facility] [address] [address] 11/28/2024 Ralph Haile Sore throat J02.9 [facility] [place] [address] [place] [address] 05/12/2024 Manuel Isidro [facility] [address] [facility] [address] [place] [address] 07/01/2024 Ralph Haile Assessments Encounter Date Diagnosis [...] Coverage Start Date Coverage End Date [facility] [id number] [place] [address] [id number] Cornel Espinoza Self - patient is the insured Medical (General) History Medical History History ICD Code anxiety depression anemia Bicornuate uterus Surgical History Surgery Date(Month/Year) C section Extraction of Ulysses Teeth Vaginal with Breech Hospitalization History Reason Date(Month/Year) [facility]- Childbirth Jan 07, 2024 [facility]- [facility] Dec
--- OUTSIDE RECORDS SUMMARY | 2025-01-19 11:52 | XMS_ITS | Encounter Summary ---
Author Organization Healthcare Address [address] [place] [address] Care Team Providers Care Oil Paint Shader Name Role Phone Dana Haile MARILEE Primary Care Provider [phone] Reason for Visit * Reason Onset Date Comments HCN Clinical Concern/Question 01/19/2025 ED FU ARACELI Encounter Details Date Type Department Care Team (Late st Contact Info) Description 01/19/2025 Telephone Obstetrics & Gynecology [address] [place] [address] Renetta Alexis MD [address] [place] [address] [facility]CN Clinical Concern/Question (ED FU ARACELI) Social History Tobacco Use Types Packs/Day Years Used Date Smoking Tobacco: Never Smokeless Tobacco: Never Alcohol Use Standard Drinks/Week Comments Yes 0 (1 standard drink = 0.6 oz pur e alcohol) PHQ-2 Answer Date Recorded Patient Health Questionnaire-2 Score 4 09/26/2024 [place] Depression Scale Answer Date Recorded [place] Depression Scale Total 0 02/20/2024 The thought [...] drink first t [place] in 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 0 09/26/2024 CAGE Questionnaire Score 0 025 Comments No Sex and Gender Information Value Date Recorded Sex Assigned at Not on file Legal Sex Female 10:49 AM EDT Gender Identity Not on file Sexual Orientation Not on file documented as of this encounter Miscellaneous Notes * Telephone Encounter - Natalio Anderson - 01/19/2025 9:09 AM EDT Called and discussed with patient. [facility] ER did not give her fluids, test her urine or swab her for anything. Temp is still over 100. Discussed with Dr. Alexis. Patient is going to [facility] to be Evaluated instead. Needs IV fluids. * Telephone Encounter - Adenike Trinh - 01/19/2025 8:17 AM EDT Same Day Appt/Overbook Request Reason for Call: Patient took a test 01/17/2025, went to [facility] 01/18/2025 dueto not eating, drinking, vomiting and was told to follow up due to fever and dehydration ARACELI. Provider delivered her last 2 children and prefers to see this provider. Best contact number: [phone] (home) Optimal time of day to reach caller: ANYTIME Additional comments/information from caller: Please call to advise. Note: Please do not reply to this message. Follow-up communication and further actions as a result of this message need to be communicated with the patient directly, if the patient is not active onMyChart. If the patient is active on MyChart, they will receive notification of the communication/outcome via [employer]. documented in this encounter Plan of Treatment Not on file documented as of this encounter Visit Diagnoses [...] documented as of this encounter Care Teams Oil Paint Shader Relationship Specialty Start Date End Date Dana Haile APRN [address] [facility] [address] [facility] [address] [place] [address] PCP - General 09/23/24 documented as of this encounter
--- OUTSIDE RECORDS SUMMARY | 2025-01-19 11:53 | XMS_ITS | Clinical Summary ---
[facility] Address [address] [place] [address] Care Team Providers Care Av Specialist Name Role Phone Bubba Bhatt MD Primary Care Provider [phone] Allergies No known active allergies Medications No [...] ve Non-Reacti ve 05/27/2021 12:20 AM EST [facility] Blood Venipuncture / Unknown 05/26/2021 3:28 PM EST 05/26/2021 3:28 PM EST Narrative [facility] - 05/27/2021 12:20 AM EST Results may be falsely decreased if patient taking Biotin. Taloncolby Paz Zavala [facility] BLOOD ORDERABLES Final Re sult [facility]
[address] [place] [address], * Chlamydia trachomatis, Neisseria gonorrhoeae, PCR w/ confirmation - Urine, Vagina (11/30/2020 2:35 PM EDT) Pathologist [facility] [place] Chlamydia trachomatis, ARANZA Negative Negative 12/03/2020 3:08 PM EDT [facility] Neisseria gonorrhoeae, ARANZA Negative Negative 12/03/2020 3:08 PM EDT [facility] Urine Specimen from vagina / Unknown Collection / Unknown 11/30/2020 2:35 PM EDT 11/30/2020 2:35 PM EDT Narrative [facility] - 12/03/2020 3:08 PM EDT Performed at: [address] [place] [id number] Biodiesel Processing Technician: Jose Martínez MD, Phone: [phone] Dana Ford MD MICROBIOLOGY - GENERAL ORDERA BLES Final Result [facility] [address] [place] [address], from Last 3 Months or Most Recently Relevant to Health Maintenance Insurance PPO Member Subscriber Plan / Payer (Ef fective 2020-Present) Name:Cornel Harris Relation to Subscriber:Child Name:COY HARRIS Date of :1968 Address: [address] [place] [address] [place] [address] Payer ID:[id number] (NAIC) Type:Not on file Address: [address] [place] [id number] Care Teams Av Specialist Relationship Specialty Start Date End Date Bubba Bhatt MD [address] [facility] [address] [place] [address] PCP - General Family Medicine 10/15/18
== END 2025-01-16 23:59 ==
LOC: LAB.DROPOF 01-19 11:49
PROVIDERS: PCP Nurse Practitioner Family; Visit Provider Student in an Organized Health Care Education/Training Program
DX: J06.9 Acute upper respiratory infection, unspecified (principal); J02.9 Acute pharyngitis, unspecified; R05.9 Cough, unspecified
CPT/HCPCS: 87631

== ENCOUNTER 2025-01-18 19:25 | Emergency (ER) | payer BC, SELFPAY ==
--- OUTSIDE RECORDS SUMMARY | 2024-07-05 17:30 | XMS_ITS ---
Author Organization [facility] Address [address] [facility] 36 [facility] [address] [place] [address] Care Team Providers Care Track Machine Operator Repairer Name Role Phone Dana Haile Primary Care Provider [phone] DANA HAILE Unavailable Unavaila ble Migration, Provider [...] Provider Diagnosis [facility] [address] [place] [address] 07/05/2024 Provider Migration Plan Of Treatment No Information Progress Notes * Cornel HARRISDOB:2000 (24 yo F)Acc No.[id number]:07/05/2024 Patient: Cornel ESPITIA Provider: Lexus Reynoso :2000 A ge:23 Y S ex:Female Date:07/05/2024 Address:[address] [place] [address] [phone] Pcp:Dana Haile Subjective: * [...] Electronic signature of Adeel crawford Migration on 01/18/2025 at 08:02 PM EDT Sign off status: Pending * Provider: Lexus huerta Migration Date: 0 07/05/2024 Generated for Tracey noe/Inez/Gianluca on: 1 08:02 PM EDT
--- OUTSIDE RECORDS SUMMARY | 2024-07-29 05:00 | XMS_ITS ---
Author Organization [facility] Address [address] [facility] [address] [place] [address] Care Team Providers Care Audio Video Tech Name Role Phone Dana Haile Primary Care Provider DANA HAILE Unavailable Unavaila ble REASON FOR VISIT 6 wk f/u Encounters Encounter Location Date Provider Diagnosis [facility] [address] [place] [address] [facility] [address] [place] [address] 07/29/2024 Dana Haile Plan Of Treatment No Information Progress Notes * Cornel HARRISDOB:2000 (24 yo F)Acc No.[id number]:07/29/2024 Progress Notes Patient: Cornel ESPITIA Provider: ROSEMARIE Miguel :2000 A ge:23 Y S ex:Female Date:07/29/2024 Address:[address] [place] [address] [phone] Subjective: * Chief Complaints: * 1 . 6 wk f/u. * Medical History: Objective: * Vitals: Assessment: Plan: * Treatment: * * Electronic signature of Sarah Haile APRN on 01/18/2025 at 08:02 PM EDT Sign off status: Pending * Provider: ROSEMARIE Miguel Date: 0 07/29/2024 Generated for Printi ng/Faxing/eTransmitting on: 1 08:02 PM EDT
--- OUTSIDE RECORDS SUMMARY | 2024-11-28 07:15 | XMS_ITS ---
Author Organization [facility] Address [address] [place] [facility] [address] [place] [address] Care Team Providers Care Pond Worker Name Role Phone Dana Haile Primary Care Provider [phone] DANA HAILE Unavailable Unavaila ble Allergies No Known Allergies Results Component Value Reference Range Notes Rapid Strep Reviewed date:11/28/2024 01:55:25 PM Interpretation:Negative Performing Lab: Notes/Report: Negative Rapid screen Neg REASON FOR VISIT Possible Strep Medications Medication SIG (Take, Route, Frequency, Duration) Notes Start Date End Date Status Norelgestromin-Eth Estradiol 150-35 MCG/24HR as directed Transdermal Active busPIRone HCl 5 MG 1 tab(s) orally 2 ti mes a day Active Escitalopram Oxalate 10 MG 1 tab(s) orally once a day 06/17/2024 Active ARIPiprazole 5 MG 1 tablet Orally Once a day; Duration: 30 days 09/30/2024 Not-Jumana g Vital Signs Weight 143 lbs 11/28/2024 Height 5ft 3in in 11/28/2024 Heart Rate 68 /min 11/28/2024 Blood pressure systolic 100 mm Hg 11/29/19 25 Blood pressure diastolic 64 mm Hg 025 Temperature 98.3 degrees Fahrenheit 11/29/19 25 BMI 25.33 kg/m2 11/28/2024 Encounters Encounter Location Date Provider Diagnosis [facility] [address] [address] 11/28/2024 Dana Haile Sore throat J02.9 Assessments Encounter Date Diagnosis (ICD Code) Assessment Notes Treatment Notes Treatment Clinical Notes Section Notes 11/28/2024 Sore throat (ICD-10 - J02.9) Reassurance. Discussed viral etiology with negative strep screen, expected course of illness, and rationale for not prescribing antibiotics. Continue supportive care with PRN antipyretics, salt-water gargles, and cough drops/throat lozenges. Encourage PO hydration. Discussed the signs and symptoms of worsening condition and need for reassessment in clinic or ED. May return to work in 24 hours unless febrile or progression of symptoms. Plan Of Treatment Next Appt Details Follow Up: prn, Reason: Progress Notes * Cornel HARRISDOB:2000 (24 yo F)Acc No.[id number]:11/28/2024 Progress Notes Patient: Cornel ESPITIA Provider: ROSEMARIE Miguel :2000 A ge:24 Y S ex:Female Date:11/28/2024 Address:[address] [place], [place] [id number] Subjective: * Chief Complaints: * 1 . Possible Strep. * HPI: E NT/respiratory: 24 year old female presents with c/o sore throat. c/o cough. Denies : nasal congestion. D enies : fever. D enies : ear pain. D enies : rhinorrhea. Presents today with sore throat for a couple of days, occasional cough and nausea but no significant nasal congestion and no vomiting. No fevers. Some exposure to illness but no strep to her knowledge. Decreased appetite, swallowing painful at times. * ROS: C ONSTITUTIONAL: See HPI Y es. D ERMATOLOGY: no R saleem. G ASTROENTEROLOGY: See HPI Y es. n o D iarrhea. U ROLOGY: Reviewed, No Symptoms Reported: Y es. * Medical History: A nxiety, Depression, Anemia, Bicornuate uterus. * Medications: T aking Norelgestromin-Eth Estradiol 150-35 MCG/24HR Patch Weekly as directed Transdermal , Taking busPIRone HCl 5 MG Tablet 1 tab(s) orally 2 times a day , Taking Escitalopram Oxalate 10 MG Tablet 1 tab(s) orally once a day , Not-Taking ARIPiprazole 5 MG Tablet 1 tablet Orally Once a day , Medication List reviewed and reconciled with the patient * Allergies: N .K.D.A. Objective: * Vitals: N urse: KJ, Pain: 8, Temp: 98.3, RR: 16, HR: 68, BP: 100/64, Ht: 5ft 3in, Wt: 143, BMI:25.33. * Examination: E NT/Respiratory: General Appearance : w ell nourished and hydrated, alert.? Ears: a uditory canals normal bilaterally, tympanic membranes normal bilaterally. Nose : t urbinates red, mild congestion. Oral Cavity n o erythema or exudate seen on pharynx. Neck : m ildly tender shoddy anterior adenopathy. Heart : R RR, normal S1 S2, no murmurs. Lungs : c lear to auscultation bilaterally, no crackles or wheezes. Abdomen : s oft, NT/ND, BS present. Skin : c lear without rashes. Assessment: * Assessment: 1. S [facility] throat - J02.9 (Primary) Plan: * Treatment: Value Reference Range R apid screen Neg * This lab was reviewed by Mason Haile on 11/28/2024 at 13:55 PM EDT Clinical Notes: Reassurance. Discussed viral etiology with negative strep screen, expected course of illness, and rationale for not prescribing antibiotics. Continue supportive care with PRN antipyretics, salt-water gargles, and cough drops/throat lozenges. Encourage PO hydration. Discussed the signs and symptoms of worsening condition and need for reassessment in clinic or ED. May return to workin 24 hours unless febrile or progression of symptoms.?? * Procedure Codes: 8 7880 RAPID STREP, Modifiers: QW * Follow Up: p rn * * Sign off status: Completed true * Provider: ROSEMARIE Miguel Date: 11/28/2024 Generated for Tracey noe/Inez/Julio Césaritting on: 08:02 PM EDT History and Physical Notes * HPI (History of Present Illness) Category Sub-Category Detail Notes Category Not es ENT/respiratory sore throat Presents tod ay with sore throat for a couple of days, occasional cough and nausea but no significant nasal congestion and no vomiting. No fevers. Some exposure to illness but no strep to her knowledge. Decreased appetite, swallowing painful at times. ear pain cough fever rhinorrhea nasal congestion Examination Category Sub-Category Detail Notes Category Not es ENT/Respiratory Oral Cavity no erythema or exudate se en on pharynx Ears: auditory canals norm al bilaterally, tympanic membranes normal bilaterally Neck : mildly tender shoddy anterior adenopathy Heart : RRR, normal S1 S2, n o murmurs Lungs : clear to auscultatio n bilaterally, no crackles or wheezes Abdomen : soft, NT/ND, BS pres ent General Appearance : well nourished and hydrated, alert Nose : turbinates red, mild congestion Skin : clear without rashes
[2025-01-18 19:49] VITALS: BP 120/54; PULSE 71; RESP 18; TEMP 38; O2SAT 100; BMI 26.6
--- OUTSIDE RECORDS SUMMARY | 2025-01-18 20:02 | XMS_ITS | Patient Health Record ---
Author Organization [facility] Address [address] [place] [address] Care Team Providers Care Category Planner Name Role Phone Dana Ford [phone] Allergies No Known Allergies Reason For Referral [...] tobac co user? No Section Notes: EP, TOOL CRIB LEAD EP, TOOL CRIB LEAD EP, TOOL CRIB LEAD EP, TOOL CRIB LEAD EP, TOOL CRIB LEAD EP, TOOL CRIB LEAD EP, TOOL CRIB LEAD EP, TOOL CRIB LEAD EP, TOOL CRIB LEAD EP, TOOL CRIB LEAD EP, TOOL CRIB LEAD Problems Problem Type SNOMED Code ICD Code Onset Dates Problem Status W/U Status Risk Notes Problem Bicornate uterus (83306541) Bicornate uterus (Q51.3) Active confirmed Problem Primigravida (999500542) Supervision of normal first in second trimester (Z34.02) Active confirmed Problem Third trimester (79522586) Encounter for supervision of other normal in third trimester (Z34.83) Active confirmed Problem Footling breech presentation, single or unspecified fetus (O32.8XX0) Active confirmed Plan Of Treatment No Information Insurance Providers Payer Name Payer Address Payer Phone Subscriber Number Group Number Insured Name Patient Relationship to Insured Coverage Start Date Coverage End Date Daren VALDEZ [address] [place] [address] [id number] Cornel Fleming Self - patient is the insured Medical (General) History Medical History History ICD Code Anxiety bicornuate uterus Surgical History Surgery Date(Month/Year)
--- OUTSIDE RECORDS SUMMARY | 2025-01-18 20:02 | XMS_ITS | Clinical Summary ---
Author Organization [facility] Address [address] [place] [address] Care Team Providers Care Lightning Rod Installer Name Role Phone Dana Haile Latesha HUNT Primary Care Provider [phone] Allergies No known active allergies Medications busPIRone (Buspar) 7.5 MG tablet Take 1 tablet (7.5 mg) by mouth 2 (two) times a day. 4 Active busPIRone (Buspar) 5 MG tablet 5 Active norelgestromin-eth inyl estradiol (Xulane) 150-35 MCG/24HRIndication s:Encounter for initial prescription of transdermal patch hormonal [...] up to 10 days. 30 capsule 5 Active Active Problems Problem Noted Date Diagnosed Date [...] in future pregnancies - RTC as needed Immunizations Immunization Administration Dates Next Due Hep [...] Recorded Patient Health Questionnaire-2 Score 4 09/26/2024 Gilchrist Depression Scale Answer Date Recorded Gilchrist Depression Scale Total 0 02/20/2024 The thought [...] drink first t enedina in the morning (EYE-CAR REPAIRER) to steady your nerves or to get [...] kg (138 lb 12.8 oz) 09/26/2024 3:11 P M EDT Height 160 cm (5' 3 ) 09/26/2024 3:11 PM EDT Body Mass Index 24.59 09/26/2024 3:11 PM EDT Plan of Treatment Health Maintenance Due Date Last Done Comments [facility]-/Child/Adol SDOH Screenings 2002 [facility]-Varicella Vaccines (1 of 2 - 13+ 2-dose series) 09/11/2015 HPV Vaccines (1 - 3-dose series) 2017 [facility]- SDOH Screenings 2020 [facility]-Adult SDOH Screenings 2020 [facility]-Hepatitis B Vaccines (1 of 3 - 19+ 3-dose series) 2021 [facility]-Pap Smear 09/11/2023 [facility]-Chlamydia and Gonorrhea Screening 06/27/2024 06/28/2023, 06/28/2023 [facility]-XTTPW-23 Vaccine (3 - 2024- season) 2024 01/20/2021, 12/30/2020 [facility]-Influenza Vaccine (#1) 2024 [facility]-Depression Screening 09/26/2025 025, 09/26/2024, 02/20/2024 [facility]-DTaP,Tdap,and Td Vaccines (2 - Td or Tdap) 11/18/2033 11/19/2023 [facility]-Zoster Vaccines (1 of 2) 2052 [facility]-Hepatitis A Vaccines Completed 018, 04/27/2017 [facility]-Hepatitis C Screening Completed 2023, 05/26/2021, 11/30/2020 [facility]-HIV Screening Completed 09/26/2024, 06/28/2023 [facility]-HIB Vaccines Aged Out No longer e ligible based on patient's age to complete this topic [facility]-IPV Vaccines Aged Out No longer e ligible based on patient's age to complete this topic [facility]-Pneumococcal Vaccine: Pediatrics (0 to 5 Years) and At-Risk Patients (6 to 49 Years) Aged Out No longer eligible b ased on patient's age to complete this topic [facility]-Rotavirus Vaccines Aged Out No lo nger eligible based on patient's age to complete this topic Procedures Procedure Name Priority Date/Time Associated Diagnosis Comments HIV 1/2 ANTIBODY/ANTIGEN SCREEN WITH REFLEX TO HIV I/II DIFFERENTIATION STAT 09/26/2024 3:51 PM EDT HEPATITIS C ANTIBODY W/REFLEX TO HCV QUANT PCR Routine 06/28/2023 9:34 AM EDT state, incidental CHLAMYDIA TRACHOMATIS DNA BY PCR Routine 06/28/2023 9:34 AM EDT state, incidental from Last 3 Months or Most Recently Relevant to Health Maintenance Results * HIV 1 & 2 Antibody/Antigen Screen (09/26/2024 3:51 PM EDT) HIV 1 & 2 Antibody/Antigen Screen Non Reactive Non Reactive 09/26/2024 5:34 PM EDT [facility] Comment:Screening for HIV 1 & 2 antibodies, and P24 antigen is NONREACTIVE. No confirmatory testing is required. Blood Venous blood specimen / Unknown Venipuncture / Unknown 09/26/2024 3:51 PM EDT 09/26/2024 3:54 PM EDT Irish Vasquez WARP BLEACHING VAT TENDER LAB BLOOD ORDERABLES Valentina l Result [facility] [address] [place] [address] * Chlamydia trachomatis DNA by PCR (06/28/2023 9:34 AM EDT) Pathologist [facility] Chlamydia trachomatis DNA PCR Result Not Detected Not Detected 06/29/2023 11:01 AM EDT [facility] Urine Urine specimen / Unknown Non-blood Collection / Unknown 06/28/2023 9:34 AM EDT 06/28/2023 12:50 PM EDT Narrative [facility] - 06/29/2023 11:01 AM EDT This test is performed by the [employer] instrument for Real Time PCR C. trachomatis and N. gonorrhea. This test is FDA approved for use with endocervical, vaginal, and urine specimens. This test is used for clinical purposes. It should not be regarded as invesigational or for research. The [facility] Clinical Microbiology Laboratory is certified under the Clinical Laboratory Improvement Amendments of 1988 (CLIA-88) as qualified to perform high complexity clinical laboratory testing. us Renetta Alexis MD LAB MICROBIOLOGY - GENER AL ORDERABLES Final Result [facility] [address] [place] [address] * Hepatitis C Antibody (06/28/2023 9:34 AM EDT) Hepatitis C Antibody Negative Negative 06/28/2023 1:29 PM EDT [facility] Blood Venous blood specimen / Unknown Venipuncture / Unknown 06/28/2023 9:34 AM EDT 06/28/2023 12:58 PM EDT Renetta Alexis MD LAB BLOOD ORDERABLES Fin al Result Performing Organization Address City/[facility] Co de Phone Number [facility] [address] [place] [address] from Last 3 Months or Most Recently Relevant to Health Maintenance Insurance ANTH Care Teams Lightning Rod Installer Relationship Specialty Start Date End Date Dana Haile APRN [address] [place] [address] PCP - General 09/23/24
--- OUTSIDE RECORDS SUMMARY | 2025-01-18 20:03 | XMS_ITS | Clinical Summary ---
Author Organization [facility] Address [address] [place] [address] Care Team Providers Care Performance Tester Name Role Phone Bubba Bhatt MD Primary Care Provider [phone] Allergies No known active allergies Medications No known medications Active Problems Problem Noted Date Diagnosed Date Term 12/13/2021 False labor after 37 weeks of gestation without delivery 12/03/2021 Social History Tobacco Use Types Packs/Day Years Used Date Smoking Tobacco: Former Smokeless Tobacco: Never Alcohol Use Standard Drinks/Week Comments Never 0 (1 standard drink = 0.6 oz pur e alcohol) Abuse Screen Answer Date Recorded Unsafe at Home or Work/School Not on file Feels Threatened by Someone? Not on file 03/2023 Does Anyone Keep You from Co ntacting Others or Doint Things Outside the Home? Not on file 01/11/2023 Physical Sign of Abuse Present Not on file 1 Housing Stability Answer Date Recorded Current Living Arrangements Not on file 12/31 Potentially Unsafe Housing Conditions Not on radha e 01/11/2023 Family and Community Support Answer Elvin e Recorded Help with Day-to-Day Activities Not on file 01/11/2023 Lonely or Isolated Not on file 01/11/2023 Employment Answer Date Recorded Do you want help finding or keeping work or a heidy b? Not on file 01/11/2023 Disabilities Answer Date Recorded Concentrating, Remembering, or Making Decisions Difficulty Not on file 01/11/2023 Doing Errands Independently Difficulty Not on fi le 01/11/2023 Education Answer Date Recorded Help with school or training? Not on file Preferred Language Not on file 01/11/2023 Comments No Sex and Gender Information Value Date Recorded Sex Assigned at Not on file Legal Sex Female 11:21 AM EDT Gender Identity Not on file Sexual Orientation Not on file Last Filed Vital Signs Vital Sign Reading Time Taken Comments Blood Pressure 117/73 12/02/2021 11:35 PM EDT Pulse 66 12/02/2021 11:35 PM EDT Temperature 37.2 C (98.9 F) 12/02/2021 11:35 PM EDT Respiratory Rate 16 12/02/2021 11:35 PM EDT Oxygen Saturation - - Inhaled Oxygen Concentration - - Weight 78.5 kg (173 lb) 12/02/2021 11:31 PM EDT Height 157.5 cm (5' 2 ) 12/02/2021 11:31 PM EDT Body Mass Index 31.64 12/02/2021 11:31 PM EDT Plan of Treatment Health Maintenance Due Date Last Done Comments Annual Gynecologic Pelvic an d Breast Exam 2002 HPV VACCINES (1 - 3-dose series) 2017 MENINGOCOCCAL B VACCINE (1 o f 2 - Standard) 2018 TDAP/TD VACCINES (1 - Tdap) 2021 ANNUAL PHYSICAL 12/13/2021 INFLUENZA VACCINE 10/31/2024 MENINGOCOCCAL VACCINE Completed 01/24/2019 CHLAMYDIA SCREENING Discontinued 11/30/2020 HEPATITIS C SCREENING Completed 05/26/2021 , 11/30/2020 Pneumococcal Vaccine 0-49 Aged Out No longer eligible based on patient's age to complete this topic Procedures Procedure Name Priority Date/Time Associated Diagnosis Comments HEPATITIS C ANTIBODY Routine 05/26/2021 3:28 PM EST 11 weeks gestation of care, subsequent , first trimester CHLAMYDIA TRACHOMATIS, NEISSERIA GONORRHOEAE, PCR W/ CONFIRMATION Routine 11/30/2020 2:35 PM EDT Screening examination for venereal disease from Last 3 Months or Most Recently Relevant to Health Maintenance Results * Hepatitis C Antibody (05/26/2021 3:28 PM EST) Hepatitis C Ab Non-Reacti ve Non-Reacti ve 05/27/2021 12:20 AM EST [facility] Blood Venipuncture / Unknown 05/26/2021 3:28 PM EST 05/26/2021 3:28 PM EST Narrative [facility] - 05/27/2021 12:20 AM EST Results may be falsely decreased if patient taking Biotin. Taloncolby Paz Zavala [facility] BLOOD ORDERABLES Final Re sult [facility]
[address] [place] [address], * Chlamydia trachomatis, Neisseria gonorrhoeae, PCR w/ confirmation - Urine, Vagina (11/30/2020 2:35 PM EDT) Pathologist [facility] Chlamydia trachomatis, ARANZA Negative Negative 12/03/2020 3:08 PM EDT [facility] Neisseria gonorrhoeae, ARANZA Negative Negative 12/03/2020 3:08 PM EDT [facility] Urine Specimen from vagina / Unknown Collection / Unknown 11/30/2020 2:35 PM EDT 11/30/2020 2:35 PM EDT Narrative [facility] - 12/03/2020 3:08 PM EDT Performed at: [address] [place] [id number] Director Transportation: Jose Martínez MD, Phone: [phone] Dana Ford MD MICROBIOLOGY - GENERAL ORDERA BLES Final Result [facility] [address] [place] [address], from Last 3 Months or Most Recently Relevant to Health Maintenance Insurance PPO Member Subscriber Plan / Payer (Ef fective 2020-Present) Name:Cornel Harris Relation to Subscriber:Child Name:COY HARRIS Date of :1968 Address: [address] [place] [address] [place] [address] Payer ID:[id number] (NAIC) Type:Not on file Address: [address] [place] [id number] Care Teams Performance Tester Relationship Specialty Start Date End Date Bubba Bhatt MD [address] [place] [facility] [address] [place] [address] PCP - General Family Medicine 10/15/18
--- OUTSIDE RECORDS SUMMARY | 2025-01-18 20:03 | XMS_ITS | Patient Health Record ---
Author Organization [facility] [place] Address [address] [place] [address] Care Team Providers Care Fishing Tool Supervisor Name Role Phone Ralph Haile Primary Care Provider RALPH HAILE Unavailable Unavaila Manuel Mercer Unavailable [phone] Vidhi Pemberton Unavailable [phone] Ralph Solano Unavailable [phone] Migration, Provider Unavailable Unavailable Allergies No Known Allergies Results Component Value Reference Range Notes Rapid Strep Reviewed date:11/28/2024 01:55:25 PM Interpretation:Negative Performing Lab: Notes/Report: Negative Rapid screen Neg X ray : Hand, Right Reviewed date:07/02/2024 09:13:04 AM Interpretation: Performing Lab: Notes/Report: Rapid Strep Reviewed date:09/04/2024 04:47:45 PM Interpretation:Negative Performing Lab: Notes/Report: Negative Rapid screen Negative Reason For Referral Referring Provider First Name Grayson Referring Provider Last Name Lonnie Referred Provider Manuel Felix Referral Priority Routine Reason [facility] Behavioral Healt h Diagnosis 1 Severe episode of re current major depressive disorder, without psychotic features (F33.2) Referral Organization [facility] AMANUEL US Referring Provider First Name Ralph Referring Provider Last Name Lazara Referring Provider Speciality Family Pra ctice Referred Organization [facility] Referred Address [address] [facility] [address] [facility], [place],[address], Referred Provider Specialty Behavioral H ealt General Notes Delores Marroquin 2024 10:55:18 AM >sent to [facility] Behavioral Health at [facility] Referral Priority Routine Medications Medication SIG (Take, Route, Frequency, Duration) Notes Start Date End Date Status Norelgestromin-Eth Estradiol 150-35 MCG/24HR as directed Transdermal Active busPIRone HCl 5 MG 1 tab(s) orally 2 ti mes a day Active Escitalopram Oxalate 10 MG 1 tab(s) orally once a day 06/17/2024 Active ARIPiprazole 5 MG 1 tablet Orally Once a day; Duration: 30 days 09/30/2024 Maulik-Jumana [place] Social History Tobacco Use: Social History Observation Description Date Details (start date - stop date) Never Smoker NA - NA Tobacco Control (Standard) Question Answer Notes Tobacco use: Nonsmoker Problems Problem Type SNOMED Code ICD Code Onset Dates Problem Status W/U Status Risk Notes Problem Chronic rhinitis (67807203) Chronic rhinitis (J31.0) Active confirmed Problem Mixed anxiety and depressive disorder (476971403) Depression with anxiety (F41.8) Active confirmed Problem Severe recurrent major depression without psychotic features (41203264) Severe episode of recurrent major depressive disorder, without psychotic features (F33.2) Active confirmed Vital Signs Heart Rate 68 /min 11/28/2024 Temperature 98.3 degrees Fahrenheit 11/28/2024 Blood pressure diastolic 64 mm Hg 11/28/2024 Height 5ft 3in in 11/28/2024 Blood pressure systolic 100 mm Hg 11/28/2024 Weight 143 lbs 11/28/2024 BMI 25.33 kg/m2 11/28/2024 Encounters Encounter Location Date Provider Diagnosis [facility] [place] [address] [place], [place] [address] 07/05/2024 Provider Migration [facility] [place] [address] [place], [place] [address] 05/20/2024 [facility] Depression with anxiety F41.8 and Encounter to establish care with new doctor Z76.89 [facility] [place] [address] [place], [place] [address] 06/17/2024 Ralph Lazara Depression with anxiety F41.8 [facility] [place] [address] [place], [place] [address] 06/23/2024 Manuel Felix Infective pharyngitis J02.9 ; Chronic rhinitis J31.0 and Abdominal cramps R10.9 [facility] [place] [address] [facility] [address] [place] [address] 06/30/2024 Ralph Haile Right hand pain M79.641 and Acute traumatic pain G89.11 [facility] [place] [address] [facility] [address] [place] [address] 09/02/2024 Vidhi Nilay Depression with anxiety F41.8 [facility] [place] [address] [facility] [address] [place] [address] 09/04/2024 Ralph Salgadoell Sore throat J02.9 and Viral URI J06.9 [facility] [place] [address] [facility] [address] [place] [address] 09/30/2024 Ralph Haile Severe episode of recurrent major depressive disorder, without psychotic features F33.2 and Nonsuicidal self-harm R45.88 [facility] [place] [address] [place] [address] 10/07/2024 Ralph Haile Severe episode of recurrent major depressive disorder, without psychotic features F33.2 and Nonsuicidal self-harm R45.88 [facility] [address] [address] 11/28/2024 Ralph Haile Sore throat J02.9 [facility] [place] [address] [place] [address] 05/12/2024 Manuel Isidro [facility] [place] [address] [facility] [address] [place] [address] 07/01/2024 Ralph Haile Assessments Encounter Date Diagnosis (ICD Code) Assessment Notes Treatment Notes Treatment Clinical Notes Section Notes 06/30/2024 Right hand pain (ICD-10 - M79.641) [...] health. 09/30/2024 Nonsuicidal self-harm (ICD-10 - R45.88) 10/07/2024 Severe episode of recurrent major depressive disorder, without psychotic features (ICD-10 - F33.2) We agreed not to make any medication changes today since she is due to see psychiatry tomorrow. We will touch base with her to make sure they have a plan WRT medication therapy and continued counseling and she will continue FU with them thereafter. Strict return precautions reviewed 10/07/2024 Nonsuicidal self-harm (ICD-10 - R45.88) 11/28/2024 Sore throat (ICD-10 - J02.9) Reassurance. [...] hours unless febrile or progression of symptoms. 05/20/2024 Depression with anxiety (ICD-10 - F41.8) Feels like she did well on lexapro previously. Discussed rationale for pharmacotherapy, and discussed MOA of med. Discussed time [...] avoidance. 06/23/2024 Infective pharyngitis (ICD-10 - J02.9) 06/23/2024 Abdominal cramps (ICD-10 - R10.9) Cramps are nonspecific, possibly abdominal versus menstrual, she feels okay after some ibuprofen. Given the fact that Lexapro is helping her have encouraged her to continue taking the medicine. We Discussed her follow-up in 4 weeks and if she is not better discuss the case again Plan Of Treatment No Information Insurance Providers Payer Name Payer Address Payer Phone Subscriber Number Group Number Insured Name Patient Relationship to Insured Coverage Start Date Coverage End Date [facility] [address] [place] [address] [id number] Cornel Espinoza Self - patient is the insured Medical (General) History Medical History History ICD Code anxiety depression anemia Bicornuate uterus Surgical History Surgery Date(Month/Year) C section Extraction of [place] Teeth Vaginal with Breech Hospitalization History Reason Date(Month/Year) [facility]- Childbirth Jan 07, 2024 [facility]- [facility] Dec
[2025-01-18 20:26] LABS: Strep Scrn Group A (Rapid) Negative (Negative)
--- NOTE | 2025-01-18 21:02 | PC.NURSE ---
Pt to triage room for vital sign reassessment and for [place] BOONE to assess patient.
[2025-01-18 21:03] VITALS: BP 111/49; PULSE 105; RESP 18; TEMP 37.7; O2SAT 99
--- NOTE | 2025-01-18 21:15 | ED_ITS ---
<Statement entered by Miles Cartagena MD - 01/19/25 02:08> I was consulted by the SELVIN, and we discussed the complexity of the problems being addressed. I approve the treatment and management plan for this patient's care in the emergency department, thus performing a substantive portion of the medical decision making. Miles Cartagena MD Discharge Plan Disposition Patient Disposition: Home, Self-Care Condition: Good Prescriptions Prescriptions: No Action venlafaxine 37.5 mg capsule,extended release 24hr 37.5 mg PO DAILY escitalopram oxalate 10 mg tablet PO Patient Comments: TAKE 1 TABLET BY MOUTH ONCE DAILY FOR 90 DAYS lamotrigine [Lamictal] 25 mg tablet 25 mg PO DAILY 30 Days Qty: 30 0RF fluticasone propionate 50 mcg/actuation spray,suspension 1 spray intranasal DAILY Qty: 16 0RF Rx Instructions: administer into each nostril guaifenesin 600 mg tablet extended release 12hr 600 mg PO Q12H PRN (Reason: congestion) Qty: 30 0RF doxylamine-pyridoxine (vit B6) 1 EACH tablet,delayed release (DR/EC) 1 each PO TID Qty: 20 2RF ondansetron HCl 4 mg Tablet 4 mg PO Q8H PRN (Reason: Nausea) Qty: 20 0RF hyoscyamine sulfate [Levsin/SL] 0.125 mg tablet, sublingual 0.125 mg PO Q8H PRN (Reason: dyspepsia) Qty: 10 0RF Referrals Follow up/Referrals: Dana Haile APRN [Primary Care Provider, Medical] - See instructions Melissa Lopez DO [Staff Physician, FLEET MAINTENANCE FOREMAN] - See instructions Activity Restrictions/Add. Instructions Additional Instructions/Restrictions: Please return to the emergency department with any worsening signs or symptoms. Please follow-up with your FLEET MAINTENANCE FOREMAN and primary care doctor in the upcoming days/weeks, utilize anti-inflammatory medication as needed for fever. You can utilize Robitussin, without alcohol, Mucinex, Vicks vapor rub, cough drops and Claritin for your symptomatic relief. Clinical Impressions Clinical Impression: Upper respiratory infection, viral, Sore throat Instructions Patient Instructions: DI for Viral Upper Respiratory Infection in Adults, DI for Viral Pharyngitis Print Language Print Language: Sri [place]ankan Discharge ED Provider: Karsner,Miles General Adult HPI General Chief complaint: Ear Stated complaint: ears and throat hurt,cant eat or drink , six weeks Time Seen by Provider: 01/18/25 21:09 Mode of Arrival: Ambulatory Source of Information: Patient Limitations: No Limitations Description of Symptoms (Recalled from ER Triage Doc. by RN): Pt presents for evaluation of bilateral ear pain, sore throat, pt states she has not been able to eat or drink due to having pain swallowing. Pt states had a positive test yesterday. 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 She endorses odynophagia, denies any chest pain shortness of breath, denies any productive cough, denies any abdominal pain nausea vomiting constipation diarrhea, or urinary type symptomatology. Of note patient was seen in urgent care treatment facility on Sunday, diagnosed with rhinovirus via PCR and told she had fluid on her right ear , patient has other past medical history consistent with MDD/ROSIO, does not take any medication for this. Initial triage vitals noted for tachycardia and febrile to 100.4 ?F. Of note patient took Tylenol around 1 PM with some relief to her symptomatology. Please note that above description of symptoms, in this electronic medical record under categorization of recalled from ER triage doctor by RN are reflective of an initial nursing assessment, however, is not reflective of my full history and physical exam that was personally taken and clarified. Consequentially, this preceding description of symptoms, which may include the patient's categorized chief complaint in the EMR, do not reflect my personal clinical impression, and the ultimate description of history of present illness and patient stated complaints should be deferred to this section of the note. Unless stated otherwise or congruent with this section of the note, additional signs, symptoms, or incongruence should be interpreted as inaccurate with my clinical impression. Onset (ago): day(s) Related Data Home Medications ?Medication ?Instructions ?Recorded ?Confirmed venlafaxine 37.5 mg 37.5 mg PO DAILY Depression 04/29/19 01/16/25 capsule,extended release 24 hr escitalopram oxalate 10 mg tablet mg PO 10/16/2401/16 Previous Rx's ?Medication ?Instructions ?Recorded doxylamine 10 mg-pyridoxine (vit 1 each PO TID #20 tab s 04/16/21 B6) 10 mg tablet,delayed release hyoscyamine sulfate 0.125 mg 0.125 mg PO Q8H PRN dyspe psia #10 10/06/22 sublingual tablet (Levsin/SL) tabs ondansetron HCl 4 mg tablet 4 mg PO Q8H PRN Nausea #20 tabs 10/06/22 lamotrigine 25 mg tablet (Lamictal) 25 mg PO DAILY 30 days #30 tabs 10/16/24 fluticasone propionate 50 1 spray intranasal DAILY #16 grams 01/16/25 mcg/actuation nasal spray,suspension guaifenesin 600 mg tablet, 600 mg PO Q12H PRN congesti on #30 01/16/25 extended release 12 hr tabs Allergies Allergy/AdvReac Type Severity Reaction Status Date / Time No Known Allergies Allergy Verified 01/16/25 08:41 [facility] Disclaimer: The information contained in this section may have been updated after the patient was seen, as this information can be updated by other users. Medical History Fracture of thumb Supracondylar fracture of humerus with routine healing Syncope Borderline personality disorder Surgical History No pertinent past surgical history Family History Family/Other No significant family history Social History Smoking Status: Never smoker alcohol intake: never substance use type: denies use current occupational status: student Travel in the last 8 weeks?: None household members: family Have you lived/traveled outside US in past 30 days?: No Contact w/someone who lives/traveled outside US past 30 days?: No Exposure to someone with infectious disease in past 14 days?: No Do you have a fever (greater than 100.4 F or 38 C)?: No Have you tested positive for COVID-19?: No Exposed to someone with COVID-19 in past 14 days?: No Do you have a sore throat?: No Do you have a cough?: No Do you have any weakness?: No Do you have any diarrhea?: No Are you experiencing any unusual bleeding?: No Do you have any muscle aches/pain?: No Do you have any abdominal pain?: No Are you experiencing loss of taste or smell?: No Other Medical History Have you received the Flu Vaccine for this season: No Have you received the Pneumonia Vaccine: No ROS Obtained: Yes All systems reviewed & no additional complaints except as documented Physical Exam General General appearance: alert and in no apparent distress Head Head exam: atraumatic and normocephalic Eye Eye exam: Present PERRL and EOMI ENT ENT exam: Present normal oropharynx, mucous membranes moist and other (Otoscope exam bilaterally is notable for no erythema, there is some mild serous otitis media on the right, white reflex elicited bilaterally. Oropharyngeal exam shows no oropharyngeal edema, no tonsillar exudates, uvula midline); Absent TM's normal bilaterally Neck Neck exam: Present normal inspection Chest Chest inspection: Present normal inspection and symmetric chest wall rise Respiratory Respiratory exam: Present normal lung sounds bilaterally; Absent respiratory distress, wheezes or stridor Cardiovascular Cardiovascular exam: Present regular rate and normal rhythm Abdominal Exam Abdominal exam: Present soft; Absent tenderness, guarding, rebound or rigidity Extremities Exam Extremities exam: Present normal inspection Neurological Exam Neurological exam: Present alert and oriented X3 Psychiatric Psychiatric exam: Present normal affect Skin Skin exam: Present warm and dry Medical Decision Making Medical Records Medical records reviewed: Yes I reviewed the patient's medical records. Screening: Per USPSTF and CDC recommendations, given the prevalence of disease in our region, it is our hospital?s policy to screen for HIV and viral Hepatitis for all patients aged 18 and over and those with ongoing risk factors. William Inquiry Pt receiving controlled substance: No William was queried for this patient: No Vital Signs: 01/18/25 19:49 01/18/25 21:03 Temperature 100.4 F H 99.8 F H Temperature Source Oral Oral Pulse Rate 105 H Pulse Rate [Right] 71 Respiratory Rate 18 18 Blood Pressure 111/49 L Blood Pressure [Right Arm] 120/54 L Blood Pressure Mean [Right Arm] 76 Blood Pressure Source Automatic Cuff Blood Pressure Source [Right Arm] Automatic Cuff Blood Pressure Position Sitting Blood Pressure Position [Right Arm] Sitting 02 Sat by Pulse Oximetry 100 99 Oxygen Delivery Method Room Air Room Air Lab Data Lab results reviewed: Yes I reviewed the patient's lab results. Lab Results 01/18/25 19:53: Group A Strep Rapid Negative Orders (Tests/Meds): ED MEDICATIONS Discontinued Medications Generic Name Dose Route Start Last Admin Trade Name Carisa PRN Reason Stop Dose Admin Al Hydrox/Mg Hydrox/Simethicone 30 ml 01/18/25 21:12 01/18/25 21:21 Aluminum/Magnesium/Simethicone 30ml Udc PO 01/18/25 21:13 30 ml ONCE ONE Administration ORDERS Category Date Time Status Strep Scrn Group A (Rapid) Stat Lab 01/18/25 19:53 Completed Strep Screen Confirmation Stat Micro 01/18/25 19:53 Received Medical Decision Narrative: 24-year-old female presents the emergency department with a 2-day history of URI type symptomatology, see HPI for detailed past medical history, differential diagnose include but not limited to, viral URI, viral pharyngitis, streptococcal pharyngitis, acute bronchitis among others. I discussed this patient's case with the attending physician Dr. Herrera Will obtain rapid streptococcal antigen swab, will forego full respiratory panel/swabs because patient had positive PCR for rhinovirus with full respiratory panel swab 2 days ago. Group A rapid strep is negative. I discussed the results with the patient at bedside, patient is worried about her odynophagia and pain with swallowing, patient has no nausea or vomiting, does have some pain with swallowing, will attempt to give 30 gm p.o. Maalox for symptomatic relief and p.o. challenge the patient. Also of note, patient's fever improved to 99.8, without any medication administration. Patient was able to tolerate p.o. intake, most likely viral pharyngitis, will send off group A rapid strep confirmation culture. Patient was given strict ED return precautions. Recommend follow-up with FLEET MAINTENANCE FOREMAN in the upcoming days. Recommend utilize [id number] cold and flu medication as needed for symptomatic relief. Patient voiced understanding and agreement with current treatment plan/discharge plan. Critical Care Critical Care Time Critical Care Time: No
[2025-01-18] MEDS: ALUMINUM/MAGNESIUM/SIMETHICONE 30ML UDC 30 ML PO (21:21)
--- NOTE | 2025-01-18 21:36 | PC.NURSE ---
PO challenge completed. No vomiting noted, pt was able to eat half a nutrigrain bar.
[2025-01-18 22:03] VITALS: BP 109/52; PULSE 102; RESP 18; TEMP 37.1; O2SAT 98
--- NOTE | 2025-01-18 22:03 | PC.NURSE ---
Pt to triage, provider discussing plan to discharge
== END 2025-01-18 22:13 | disposition home or self-care (01) ==
PROVIDERS: Emergency Provider Student in an Organized Health Care Education/Training Program; PCP Nurse Practitioner Family
DX: O99.511 Diseases of the respiratory system complicating pregnancy, first trimester (principal); J06.9 Acute upper respiratory infection, unspecified; R07.0 Pain in throat; H92.03 Otalgia, bilateral; Z3A.01 Less than 8 weeks gestation of pregnancy
CPT/HCPCS: 87430; 99283

== ENCOUNTER 2025-03-28 09:21 | Outpatient (CLI) | payer BC, SELFPAY ==
--- OUTSIDE RECORDS SUMMARY | 2024-07-05 16:30 | XMS_ITS ---
Author Organization [facility] Address [address] [facility] 36 [facility] [address] [place] [address] Care Team Providers Care Freight Breaker Name Role Phone Dana Haile Primary Care Provider DANA HAILE Unavailable Unavaila ble Migration, Provider Unavailable Unavailable REASON FOR VISIT Multum To Medispan Conversion Encounter Medications Medication SIG (Take, Route, Frequency, Duration) Notes Start Date End Date Status Escitalopram Oxalate 10 MG Tablet 1 tab(s) orally once a day; Duration: 30 days 06/17/2024 Active busPIRone HCl 5 MG Tablet 1 tab(s) orall y 2 times a day Active Encounters Encounter Location Date Provider Diagnosis [facility] [address] [place] [address] 07/05/2024 Provider Migration Plan Of Treatment No Information Progress Notes * Cornel HARRISDOB:2000 (24 yo F)Acc No.[id number]:07/05/2024 Patient: Cornel Schwab Provider: Lexus huerta Migration :2000 A ge:23 Y S ex:Female Date:07/05/2024 Address:[address] [place] [address] [id number] Pcp:Dana Haile Subjective: * Chief Complaints: * M ultum To Medispan Conversion Encounter * Medications: T akingbusPIRone HCl 5 MG Tablet 1 tab(s) orally 2 times a day Escitalopram Oxalate 10 MG Tablet 1 tab(s) orally once a day Taking busPIRone HCl 5 MG Tablet 1 tab(s) orally 2 times a day Taking Escitalopram Oxalate 10 MG Tablet 1 tab(s) orally once a day Billing Information: * Procedure Codes: * Electronic signature of Adeel crawford Migration on 03/30/2025 at 09:33 AM EST Sign off status: Pending * Provider: Lexus huerta Migration Date: 0 07/05/2024 Generated for Tracey noe/Inez/Gianluca on: 1 09:33 AM EST
--- OUTSIDE RECORDS SUMMARY | 2024-07-29 04:00 | XMS_ITS ---
Author Organization [facility] Address [address] [facility] [address] [place] [address] Care Team Providers Care Vocational Ed Instructor Name Role Phone Dana Haile Primary Care Provider [phone] DANA HAILE Unavailable Unavaila ble REASON FOR VISIT 6 wk f/u Encounters Encounter Location Date Provider Diagnosis [facility] [address] [place] [address] [place] [address] 07/29/2024 Dana Haile Plan Of Treatment No Information Progress Notes * Cornel HARRISDOB:2000 (24 yo F)Acc No.[id number]:07/29/2024 Progress Notes Patient: Jessica juan Cornel Provider: ROSEMARIE Miguel :2000 A ge:23 Y S ex:Female Date:07/29/2024 Address:[address] [place] [address] [phone] Subjective: * Chief Complaints: * 6 wk f/u Billing Information: * Procedure Codes: * Electronic signature of Sarah Haile APRN on 03/30/2025 at 09:34 AM EST Sign off status: Pending * Provider: ROSEMARIE Miguel Date: 0 07/29/2024 Generated for Printi ng/Faxing/eTransmitting on: 1 09:34 AM EST
--- OUTSIDE RECORDS SUMMARY | 2025-02-16 13:55 | XMS_ITS | Encounter Summary ---
Author Organization Healthcare Address [address] [place] [address] Care Team Providers Care Diagrammer And Seamer Name Role Phone Dana Haile APRN Primary Care Provider Encounter Details Date Type Department Care Team (Latest Contact Info) Description 02/16/2025 1:55 PM EST Ancillary Procedure Obstetrics & Gynecology [address] [place] [address] state, incidental Social History Tobacco Use Types Packs/Day Years Used Date Smoking Tobacco: Never Smokeless Tobacco: Never Alcohol Use Standard Drinks/Week Comments Yes 0 (1 standard drink = 0.6 oz pur e alcohol) PHQ-2 Answer Date Recorded Patient Health Questionnaire-2 Score 4 09/26/2024 [place] Depression Scale Answer Date Recorded [place] Depression Scale Total 0 02/20/2024 The thought [...] drink first t [place] in the morning (EYE-LEGAL 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 0 09/26/2024 CAGE Questionnaire Score 0 025 Estimated Date of Delivery Comme nts Yes 09/22/2025 Based on Ultraso und Sex and Gender Information Value Date Recorded Sex Assigned at Not on file Legal Sex Female 10:49 AM EDT Gender Identity Not on file Sexual Orientation Not on file documented as of this encounter Plan of Treatment Upcoming Encounters Date Type Department Care Team (Late st Contact Info) Description 04/15/2025 2:45 PM EST Routine Obstetrics & Gynecology [address] [place] [address] Renetta Alexis MD [address] [place] [address] 05/20/2025 1:45 PM EST Routine Obstetrics & Gynecology [address] [place] [address] Renetta Alexis MD [address] [place] [address] 05/20/2025 1:50 PM EST [facility] [address] [place] [address] documented as of this encounter Procedures Procedure Name Priority Date/Time Associated Diagnosis Comments US PELVIS TRANSVAGINAL Routine 02/16/2025 1:52 PM EST state, incidental documented in this encounter Results * US Pelvis Transvaginal (02/16/2025 1:52 PM EST) Anatomical Region Laterality Modality Pelvis Ultrasound 02/16/2025 1:57 PM EST Impressions 02/17/2025 11:24 AM EST The OB Ultrasound you requested has been resulted. Please navigate to the Imaging tab in [employer] for review. This message has been generated by the interface. Narrative Procedure Note Renetta Alexis MD - 02/17/2025 IMPRESSION: The OB Ultrasound you requested has been resulted. Please navigate to theImaging tab in [employer] for review. This message has been generated by [employer]. us Renetta Alexis MD IMG US PROCEDURES Final Result documented in this encounter Visit Diagnoses Diagnosis state, incidental documented in this encounter Additional Health Concerns Assessment Noted Time PHQ-9 Depression Total Score: 18 025 3:13 PM EDT A fall risk assessment has been complete d for the patient 09/25/2024 11:33 AM EDT A Body Mass Index follow-up plan has been documented for the patient 02/16/2025 3:55 PM EST documented as of this encounter Care Teams Diagrammer And Seamer Relationship Specialty Start Date End Date Dana Haile APRN [facility] [address] [address] PCP - General 09/23/24 documented as of this encounter
--- OUTSIDE RECORDS SUMMARY | 2025-02-16 14:00 | XMS_ITS | Encounter Summary ---
Author Organization [facility] Address [address] [place] [address] Care Team Providers Care News Gathering Technician Name Role Phone Dana Haile APRN Primary Care Provider [phone] Reason for Referral * Imaging (Routine) - Closed Specialty Diagnoses / Procedures Referred By Garfield fonseca Referred To Contact Diagnoses state, incidental Procedures OB US Nuchal Translucency Renetta Alexis MD [address] [place] [address] Phone: tel: fax: Referral ID Status Reason Start Date Expiration Date Visits Re quested Visits Authorized [id number] Closed 02/16/2025 08/18/2026 1 1 Reason for Visit * Reason Comments Initial Visit Presents today fo r new ob appointment Encounter Details Date Type Department Care Team (Late st Contact Info) Description 02/16/2025 2:00 PM EST Initial Obstetrics & Gynecology [address] [place] [address] Renetta Alexis MD [address] [place] [address] GA: [id number] Social History Tobacco Use Types Packs/Day Years Used Date Smoking Tobacco: Never Smokeless Tobacco: Never Alcohol Use Standard Drinks/Week Comments Yes 0 (1 standard drink = 0.6 oz pur e alcohol) PHQ-2 Answer Date Recorded Patient Health Questionnaire-2 Score 4 09/26/2024 [place] Depression Scale Answer Date Recorded [place] Depression Scale Total 0 02/20/2024 The thought [...] drink first t enedina in the morning ([facility]) to steady your nerves or to get [...] Sign Reading Time Taken Comments Blood Pressure 118/71 02/16/2025 2:05 PM EST Pulse - - Temperature - - Respiratory Rate - - Oxygen Saturation - - Inhaled Oxygen Concentration - - Weight 64 kg (141 lb 1.5 oz) 02/16/2025 2:05 PM EST Height - - Body Mass Index 24.99 09/26/2024 3:11 PM EDT documented in this encounter Functional Status * Total Weight Change Percent Answer Date of Assessment Author 222102/16/2025 2:05 PM EST Brenna Anderson * Weight Change Since Preop Answer Date of Assessment Author 63.99 02/16/2025 2:05 PM EST Brenna Anderson * Weight Change Since Last Visit Answer Date of Assessment Author 63.99 02/16/2025 2:05 PM EST Brenna Anderson * Weight Change 24 hrs Answer Date of Assessment Author 1.041 02/16/2025 2:05 PM EST Anderson, An ella S * Vitals Question Answer Date of Assessment Author BP 118/71 02/16/2025 2:05 PM EST Anderson , Natalio S Weight 2257.51 02/16/2025 2:05 PM EST Anderson , Natalio S * Weight Change Since Preop Answer Date of Assessment Author 64 02/16/2025 2:05 PM EST Anderson, An ella S * Weight Change Since Last Visit Answer Date of Assessment Author 64 02/16/2025 2:05 PM EST Anderson, An ella S * Difference in Weight Since Last Visit Answer Date of Assessment Author 1.04 02/16/2025 2:05 PM EST Anderson, An ella S * Pain Score Answer Date of Assessment Author 0 02/16/2025 2:05 PM EST Anderson, An ella S * Pain Screening/Additional Assessments Question Answer Date of Assessment Author Pain Screening/Assessments Pain Screening 02/16/2025 2 :05 PM EST Anderson, Natalio S * Pain Screening Answer Date of Assessment Author 0-10 02/16/2025 2:05 PM EST Anderson, An ella S * Vitals Question Answer Date of Assessment Author BP 118/71 02/16/2025 2:05 PM EST Anderson , Natalio S Weight 2257.51 02/16/2025 2:05 PM EST Anderson , Natalio S * Pain Score Answer Date of Assessment Author 0 02/16/2025 2:05 PM EST Anderson, An ella S documented as of this encounter Mental Status * Total Weight Change Percent Answer Entry Date Author 222102/16/2025 2:05 PM EST Anderson, An ella S * Weight Change Since Preop Answer Entry Date Author 63.99 02/16/2025 2:05 PM EST Anderson, An ella S * Weight Change Since Last Visit Answer Entry Date Author 63.99 02/16/2025 2:05 PM EST Anderson, An ella S * Weight Change 24 hrs Answer Entry Date Author 1.041 02/16/2025 2:05 PM EST Anderson, An ella S * Vitals Question Answer Entry Date Author BP 118/71 02/16/2025 2:05 PM EST Anderson , Natalio S Weight 2257.51 02/16/2025 2:05 PM EST Anderson , Natalio S * Restart Pain Assessment Timer Answer Entry Date Author Yes 02/16/2025 2:05 PM EST Anderson, An ella S * Weight Change Since Preop Answer Entry Date Author 64 02/16/2025 2:05 PM EST Anderson, An ella S * Weight Change Since Last Visit Answer Entry Date Author 64 02/16/2025 2:05 PM EST Anderson, An ella S * Difference in Weight Since Last Visit Answer Entry Date Author 1.04 02/16/2025 2:05 PM EST Anderson, An ella S * Pain Score Answer Entry Date Author 0 02/16/2025 2:05 PM EST Anderson, An ella S * Pain Screening Answer Entry Date Author 0-10 02/16/2025 2:05 PM EST Anderson, An ella S documented in this encounter Miscellaneous Notes * Assessment & Plan Note - Renetta Alexis MD - 02/16/2025 2:00 PM EST Associated Problem(s): state, incidental Orders: US Pelvis Transvaginal; Future CBC W/O Differential Chlamydia trachomatis DNA by PCR Drug Abuse Screen, Urine Hepatitis B Surface Antigen Hepatitis C Antibody w/Reflex to HCV Quant PCR HIV 1 & 2 Antibody/Antigen Screen w/Reflex to HIV 1/2 Differentiation Neisseria gonorrhea DNA by PCR Rubella Antibody IgG Treponema Pallidum (Syphilis) Antibodies with Reflex to RPR and RPR Titer (Those with NO known Syphilis) Type and Screen Urine Culture OB US Nuchal Translucency; Future Vit-Fe Fumarate-FA ( Vitamins) 28-0.8 MG tablet; Take 1 tablet by mouth daily. ondansetron (Zofran) 4 MG tablet; Take 1 tablet by mouth every 8 hours as needed for nausea or vomiting. * Assessment & Plan Note - Renetta Alexis MD - 02/16/2025 2:00 PM EST Associated Problem(s): Bicornate uterus * Assessment & Plan Note - Renetta Alexis MD - 02/16/2025 2:00 PM EST Associated Problem(s): History of labor * Assessment & Plan Note - Renetta Alexis MD - 02/16/2025 2:00 PM EST Associated Problem(s): History of section complicating * Assessment & Plan Note - Renetta Alexis MD - 02/16/2025 2:00 PM EST Associated Problem(s): Depression with anxiety * Progress Notes - Renetta Alexis MD - 02/16/2025 2:00 PM EST Initial Note Subjective HPI Initial Visit Additional comments: Presents today for new ob appointment Comments New ob today. SCREENING QUESTIONNAIRE: Bleeding: No Leaking Fluids: No Nausea or vomiting: No Last edited by Natalio Anderson on 02/16/2025 2:21 PM. 24yo here today for initial visit. Unsure of LMP but thinks it was 11/16/24. She ishaving nausea. No vaginal bleeding. Also having diarrhea. Does have a history of depression/anxiety- previously on zoloft. Not on currently and says that she is feeling great. Questions about if anxi ety/depression return in . complicated by: - bicornuate uterus - h/o breech G1 - h/o c/s x 1 G2 for breech - h/o labor G2 OB History Para Term AB Living 3 2 1 1 2 SAB IAB Ectopic Multiple Live Births 2 # Outcome Date GA Lbr Declan/2nd Weight Sex Type Anes PTL Lv 3 Current 2 01/07/24 36w0d M CS-LTranv Spinal CHRISTIANNE 1 Term 12/13/21 38w0d 2693 g F Vag-Spont None Y CHRISTIANNE Complications: Breech Pap 07/2024 normal Past Medical History She has a past medical history of Bicornuate uterus. Past Surgical History She has a past surgical history that includes section, low transverse. Social History She reports that she has never smoked. She has never used smokeless tobacco. She reports current alcohol use. She reports that she does not use drugs. Family History Her family history includes No Known Problems in her father and mother. Allergies She has no known allergies. Current Medications She has a current medication list which includes the following prescription(s): ondansetron and vitamins. Review of Systems A 14 point ROS was performed and is negative except noted above in HPI Objective Physical Exam Visit Vitals BP 118/71 Pregravid weight: 64 kg (141 lb 1.5 oz) Pregravid BMI: 25.00 Body mass index is 24.99 kg/m??. See encounter summary and flowsheet for exam details. Gen: NAD, well-appearing CV: RRR, no edema Resp: non-labored respirations Abd: soft, nontender Psych: normal mood and thought Ultrasound: viable SIUP in left uterine horn with CRL not c/w LMP, changes TIFFANIE to 09/22/24. Assessment/Plan Assessment & Plan state, incidental Orders: US Pelvis Transvaginal; Future CBC W/O Differential Chlamydia trachomatis DNA by PCR Drug Abuse Screen, Urine Hepatitis B Surface Antigen Hepatitis C Antibody w/Reflex to HCV Quant PCR HIV 1 & 2 Antibody/Antigen Screen w/Reflex to HIV 1/2 Differentiation Neisseria gonorrhea DNA by PCR Rubella Antibody IgG Treponema Pallidum (Syphilis) Antibodies with Reflex to RPR and RPR Titer (Those with NO known Syphilis) Type and Screen Urine Culture OB US Nuchal Translucency; Future Vit-Fe Fumarate-FA ( Vitamins) 28-0.8 MG tablet; Take 1 tablet by mouth daily. ondansetron (Zofran) 4 MG tablet; Take 1 tablet by mouth every 8 hours as needed for nausea or vomiting. Bicornate uterus History of labor History of section complicating Depression with anxiety - labs today. Verbal consent was obtained prior to collecting labs including UDS - pap up to date - US shows viable SIUP in left uterine horn with CRL not c/w LMP, changes TIFFANIE to 09/22/24. - desires genetic screening - FTS US ordered, desires NIPT - vitamin Rx sent - zofran Rx sent - discussed immodium is okay - discussed that zoloft is safe in and we can restart it if needed - RTC 4 weeks Time Spent: I personally spent a total of 37 minutes on this encounter. This time includes face to face with patient, counseling and discussion and/or coordination of care. documented in this encounter Plan of Treatment Upcoming Encounters Date Type Department Care Team (Late st Contact Info) Description 04/15/2025 2:45 PM EST Routine Obstetrics & Gynecology [address] [place] [address] Renetta Alexis MD [address] [place] [address] 05/20/2025 1:45 PM EST Routine Obstetrics & Gynecology [address] [place] [address] Renetta Alexis MD [address] [place] [address] 05/20/2025 1:50 PM EST Appointment [facility] Ul[facility]ound [address] [place] [address] documented as of this encounter Procedures Procedure Name Priority Date/Time Associated Diagnosis Comments HIV 1/2 ANTIBODY/ANTIGEN SCREEN W/REFLEX TO HIV 1/2 ANTIBODY DIFFERENTIATION Routine 02/16/2025 2:35 PM EST state, incidental TREPONEMA PALLIDUM (SYPHILIS) ANTIBODIES WITH REFLEX TO RPR AND RPR TITER (THOSE WITH NO KNOWN SYPHILIS) Routine 02/16/2025 2:35 PM EST state, incidental CHLAMYDIA TRACHOMATIS DNA BY PCR Routine 02/16/2025 2:35 PM EST state, incidental HIV 1/2 ANTIBODY/ANTIGEN SCREEN WITH REFLEX TO HIV I/II DIFFERENTIATION Routine 02/16/2025 2:35 PM EST state, incidental HEPATITIS C ANTIBODY W/REFLEX TO HCV QUANT PCR Routine 02/16/2025 2:35 PM EST state, incidental DRUG ABUSE SCREEN, URINE Routine 02/16/2025 2:35 PM EST state, incidental NEISSERIA GONORRHEA DNA BY PCR Routine 02/16/2025 2:35 PM EST state, incidental RUBELLA ANTIBODY IGG Routine 02/16/2025 2:35 PM EST state, incidental HC HBSAG Routine 02/16/2025 2:35 PM EST state, incidental CBC W/O DIFFERENTIAL Routine 02/16/2025 2:35 PM EST state, incidental TYPE AND SCREEN Routine 02/16/2025 2:35 PM EST state, incidental URINE CULTURE Routine 02/16/2025 2:35 PM EST state, incidental documented in this encounter Results * OB US Nuchal Translucency (03/18/2025 3:33 PM EST) Anatomical Region Laterality Modality Ultrasound 03/18/2025 3:16 PM EST Impressions 03/18/2025 3:55 PM EST The OB Ultrasound you requested has been resulted. Please navigate to the Imaging tab in [employer] for review. This message has been generated by the interface. Narrative Procedure Note Preethi Mcguire MD - 03/18/2025 IMPRESSION: The OB Ultrasound you requested has been resulted. Please navigate to theImaging tab in [employer] for review. This message has been generated by theinterface. us Renetta Alexis MD IMG OB US PROCEDURES Fin al Result * HIV 1 & 2 Antibody/Antigen Screen (02/16/2025 2:35 PM EST) Pathologist [facility] HIV 1 & 2 Antibody/Antigen Screen Non Reactive Non Reactive 02/16/2025 7:32 PM EST [facility] Comment:Screening for HIV 1 & 2 antibodies, and P24 antigen is NONREACTIVE. No confirmatory testing is required. Blood Venous blood specimen / Unknown Venipuncture / Unknown 02/16/2025 2:35 PM EST 02/16/2025 6:36 PM EST us Renetta Alexis MD LAB BLOOD ORDERABLES Fin al Result [facility] [address] [place] [address] * (ABNORMAL) Urine Culture (02/16/2025 2:35 PM EST) Pathologist [facility] Culture 10,000 - 100,000 CFU/mL Streptococcus agalactiae (Beta Hemolytic Streptococcus, Group B)(A) 02/18/2025 9:58 AM EST [facility] Comment: This isolate has been identified using the FDA Approved [employer] System Note: If this patient is and has a penicillin allergy please contact Microbiology [phone]) to perform antibiotic susceptibility testing of Clindamycin. This isolate will be saved for one month. This is a corrected result. Previous organism was Streptococcus beta hemolytic on 02/17/2025 at 1625 EST. Urine Urine specimen obtained by clean catch procedure / Unknown Non-blood Collection / Unknown 02/16/2025 2:35 PM EST 02/16/2025 6:44 PM EST Renetta Alexis MD LAB MICROBIOLOGY - GENER AL ORDERABLES Final Result Performing Organization Address City/[facility]/ZIP Co de Phone Number [facility] [address] [place] [address] * Type and Screen (02/16/2025 2:35 PM EST) ABO/Rh O Positive 02/16/2025 6:42 PM EST [facility] Antibody Screen Negative 02/16/2025 6:42 PM EST [facility] Specimen Expiration 02/19/2025 23:59 02/16/2025 6:42 PM EST [facility] Blood Venous blood specimen / Unknown Venipuncture / Unknown 02/16/2025 2:35 PM EST 02/16/2025 6:42 PM EST Renetta Alexis MD LAB BLOOD BANK TEST ORDE RABLES Final Result Performing Organization Address [facility] de Phone Number BLOOD BANK [address] [place] [address], * Treponema Pallidum (Syphilis) Antibodies with Reflex to RPR and RPR Titer (Those with NO known Syphilis) (02/16/2025 2:35 PM EST) Pathologist [facility] Syphilis Antibody (IgG+IgM) Nonreactive Nonreactive 02/16/2025 7:39 PM EST [facility] Comment:Nonreactive. No sero logic evidence of syphilis. No follow-up necessary unless clinically indicated (e.g., early syphilis). Blood Venous blood specimen / Unknown Venipuncture / Unknown 02/16/2025 2:35 PM EST 02/16/2025 6:36 PM EST Renetta Alexis MD LAB BLOOD ORDERABLES Fin al Result Performing Organization Address City/[facility]/ZIP Co de Phone Number [facility] [address] [place] [address] * (ABNORMAL) Rubella Antibody IgG (02/16/2025 2:35 PM EST) Rubella Antibody IgG Positive(A ) Negative 02/16/2025 7:58 PM EST [facility] Comment: Rubella IgG Result Interpretation: Negative: No IgG antibody specific to the rubella virus detected. Patient is presumed not to have had a previous exposure to rubella through infection or vaccination. Equivocal: Serologic status cannot be determined. Repeat testing in 10-14 days may be helpful. Positive: IgG antibody specific to rubella detected. IgG antibody levels are at a level considered to indicate positive immunity through infection or vaccination. Blood Venous blood specimen / Unknown Venipuncture / Unknown 02/16/2025 2:35 PM EST 02/16/2025 6:36 PM EST Renetta Alexis MD LAB BLOOD ORDERABLES Fin al Result Performing Organization Address [facility]/ZIP Co de Phone Number [facility] [address] [place] [address] * Neisseria gonorrhea DNA by PCR (02/16/2025 2:35 PM EST) Neisseria gonorrhea DNA PCR Result Not Detected Not Detected. 02/18/2025 2:[address] [facility] Urine Urine specimen obtained by clean catch procedure / Unknown Non-blood Collection / Unknown 02/16/2025 2:35 PM EST 02/16/2025 6:43 PM EST Narrative [facility] - 02/18/2025 2:42 PM EST This test is performed by the [employer] instrument for Real Time PCR C. trachomatis and N. gonorrhea. This test is FDA approved for use with endocervical, vaginal, and urine specimens. This test is used for clinical purposes. It should not be regarded as invesigational or for research. The [facility] Clinical Microbiology Laboratory is certified under the Clinical Laboratory Improvement Amendments of 1988 (CLIA-88) as qualified to perform high complexity clinical laboratory testing. Renetta Alexis MD LAB MICROBIOLOGY - GENER AL ORDERABLES Final Result [facility] [address] [place] [address] * Hepatitis C Antibody w/Reflex to HCV Quant PCR (02/16/2025 2:35 PM EST) Hepatitis C Antibody Negative Negative 02/16/2025 7:30 PM EST [facility] Blood Venous blood specimen / Unknown Venipuncture / Unknown 02/16/2025 2:35 PM EST 02/16/2025 6:36 PM EST us Renetta Alexis MD LAB BLOOD ORDERABLES Fin al Result [facility] [address] [place] [address] * Hepatitis B Surface Antigen (02/16/2025 2:35 PM EST) Hepatitis B Surf Antigen Negative Negative 02/16/2025 7:39 PM EST [facility] Blood Venous blood specimen / Unknown Venipuncture / Unknown 02/16/2025 2:35 PM EST 02/16/2025 6:36 PM EST us Renetta Alexis MD LAB BLOOD ORDERABLES Fin al Result [facility] [address] [place] [address] * Drug Abuse Screen, Urine (02/16/2025 2:35 PM EST) Amphetamine Screen Urine Negative Cutoff: 500 ng/mL 02/16/2025 7:17 PM EST [facility] Benzodiazepines Screen Urine Negative Cutoff: 200 ng/mL 02/16/2025 7:17 PM EST [facility] Cannabinoid Screen Urine Negative Cutoff: 50 ng/mL 02/16/2025 7:17 PM EST [facility] Cocaine Screen Urine Negative Cutoff: 300 ng/mL 02/16/2025 7:17 PM EST [facility] Barbiturate Screen Urine Negative Cutoff: 200 ng/mL 02/16/2025 7:17 PM EST [facility] Opiate Screen Urine Negative Cutoff: 300 ng/mL 02/16/2025 7:17 PM EST [facility] Methadone Screen Urine Negative Cutoff: 300 ng/mL 02/16/2025 7:17 PM EST [facility] Buprenorphine Screen Urine Negative Cutoff: 10 ng/mL 02/16/2025 7:17 PM EST [facility] Fentanyl Screen Urine Negative Cutoff: 1 ng/mL 02/16/2025 7:17 PM EST [facility] Oxycodone Screen Urine Negative Cutoff: 100 ng/mL 02/16/2025 7:17 PM EST [facility] Urine Urine specimen obtained by clean catch procedure / Unknown Non-blood Collection / Unknown 02/16/2025 2:35 PM EST 02/16/2025 6:36 PM EST Renetta Alexis MD LAB URINE ORDERABLES Fin al Result Performing Organization Address [facility] [place] [address] * Chlamydia trachomatis DNA by PCR (02/16/2025 2:35 PM EST) Chlamydia trachomatis DNA PCR Result Not Detected Not Detected 02/18/2025 2:[address] [facility] Urine Urine specimen obtained by clean catch procedure / Unknown Non-blood Collection / Unknown 02/16/2025 2:35 PM EST 02/16/2025 6:43 PM EST Narrative [facility] - 02/18/2025 2:42 PM EST This test is performed by the [employer] instrument for Real Time PCR C. trachomatis and N. gonorrhea. This test is FDA approved for use with endocervical, vaginal, and urine specimens. This test is used for clinical purposes. It should not be regarded as invesigational or for research. The [facility]biology Laboratory is certified under the Clinical Laboratory Improvement Amendments of 1988 (CLIA-88) as qualified to perform high complexity clinical laboratory testing. Renetta Alexis MD LAB MICROBIOLOGY - GENER AL ORDERABLES Final Result Performing Organization Address [facility] de Phone Number [facility] [address] [place] [address] * (ABNORMAL) CBC W/O Differential (02/16/2025 2:35 PM EST) WBC Count 5.83 3.70 - 10.30 10*3/uL LAB HEMATOLOGY METHOD 02/16/2025 7:00 PM EST [facility] RBC Count 4.24 3.90 - 5.20 10*6/uL LAB HEMATOLOGY METHOD 02/16/2025 7:00 PM EST [facility] HGB 9.5(L) 11.2 - 15.7 g/dL LAB HEMATOLOGY METHOD 02/16/2025 7:00 PM EST [facility] HCT 32.1(L) 34.0 - 45.0 % LAB HEMATOLOGY METHOD 02/16/2025 7:00 PM EST [facility] Platelet Count 258 155 - 369 10*3/uL LAB HEMATOLOGY METHOD 02/16/2025 7:00 PM EST [facility] MCV 76(L) 79 - 98 fL LAB HEMATOLOGY METHOD 02/16/2025 7:00 PM EST [facility] MCH 22.4(L) 26.0 - 32.0 pg LAB HEMATOLOGY METHOD 02/16/2025 7:00 PM EST [facility] MCHC 29.6(L) 30.7 - 35.5 g/dL LAB HEMATOLOGY METHOD 02/16/2025 7:00 PM EST [facility] RDW 18.1(H) 11.5 - 14.5 % LAB HEMATOLOGY METHOD 02/16/2025 7:00 PM EST [facility] MPV 10.5 8.8 - 12.5 fL LAB HEMATOLOGY METHOD 02/16/2025 7:00 PM EST [facility] nRBC 0.0 <=0.0 per 100 WBCs LAB HEMATOLOGY METHOD 02/16/2025 7:00 PM EST [facility] Blood Venous blood specimen / Unknown Venipuncture / Unknown 02/16/2025 2:35 PM EST 02/16/2025 6:48 PM EST us Renetta Alexis MD LAB BLOOD ORDERABLES Fin al Result [facility] [address] [place] [address] * US Pelvis Transvaginal (02/16/2025 1:52 PM EST) Anatomical Region Laterality Modality Pelvis Ultrasound 02/16/2025 1:57 PM EST Impressions 02/17/2025 11:24 AM EST The OB Ultrasound you requested has been resulted. Please navigate to the Imaging tab in [employer] for review. This message has been generated by the interface. Narrative Procedure Note Renetta Alexis MD - 02/17/2025 IMPRESSION: The OB Ultrasound you requested has been resulted. Please navigate to theImaging tab in [employer] for review. This message has been generated by theinterface. us Renetta Alexis MD IMG US PROCEDURES Final Result documented in this encounter Visit Diagnoses Diagnosis state, incidental- Primary Bicornate uterus Other congenital anomaly of uterus History of labor History of section complicating Previous delivery, unspecified as to episode of care or not applicable Depression with anxiety Dysthymic disorder state, incidental state, incidental documented in this encounter Additional Health Concerns Assessment Noted Time PHQ-9 Depression Total Score: 18 09/26/ 025 3:13 PM EDT A fall risk assessment has been complete d for the patient 09/25/2024 11:33 AM EDT A Body Mass Index follow-up plan has been documented for the patient 02/16/2025 3:55 PM EST documented as of this encounter Care Teams News Gathering Technician Relationship Specialty Start Date End Date Dana Haile APRN [address] [place] [address] [address] PCP - General 09/23/24 documented as of this encounter
--- OUTSIDE RECORDS SUMMARY | 2025-03-02 14:15 | XMS_ITS | Encounter Summary ---
Author Organization Healthcare Address [address] [place] [address] Care Team Providers Care Customer Engagement Representative Name Role Phone Dana Haile APRN Primary Care Provider [phone] Reason for Visit * Reason Comments Labs Here for labs. Encounter Details Date Type Department Care Team (Latest Contact Info) Description 03/02/2025 2:15 PM EST Clinical Support Obstetrics & Gynecology [address] [place] [address] Encounter for supervision of normal first in first trimester Social History Tobacco Use Types Packs/Day Years Used Date Smoking Tobacco: Never Smokeless Tobacco: Never Alcohol Use Standard Drinks/Week Comments Yes 0 (1 standard drink = 0.6 oz pur e alcohol) PHQ-2 Answer Date Recorded Patient Health Questionnaire-2 Score 4 09/26/2024 [place] Depression Scale Answer Date Recorded [place] Depression Scale Total 0 02/20/2024 The thought [...] 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) to steady your nerves or to [...] 2:45 PM EST Routine Obstetrics & Gynecology [address] [place] [phone] Renetta Alexis MD [address] [place] [phone] 05/20/2025 1:45 PM EST Routine Obstetrics & Gynecology [address] [place] [phone] Renetta Alexis MD [address] [place] [phone] 05/20/2025 1:50 PM EST Appointment [facility] Ultrasound [address] [place] [address] documented as of this encounter Procedures Procedure Name Priority Date/Time Associated Diagnosis Comments PANORAMA TEST Routine 03/02/2025 2:05 PM EST Encounter for supervision of normal first in first trimester documented in this encounter Results * PANORAMA TEST (03/02/2025 2:05 PM EST) REPORT SUMMARY LOW RISK 03/09/2025 12:35 PM EST [facility] Comment:LOW RISK REPORT NOTE See Notes 03/09/2025 12:35 PM EST [facility] SEX OF FETUS Male 2024 12:35 PM EST [facility] FRACTION2 14.0% 12:35 PM EST [facility] TRISOMY 21 RESULT TEXT Low Risk 03/09/2025 12:35 PM EST [facility] TRISOMY 21 AGE-BASED RISK TEXT 1981 (0.1%) 03/09/2025 12:35 PM EST [facility] TRISOMY 21 RISK SCORE TEXT <1/10,000 (<0.01%) 03/09/2025 12:35 PM EST [facility] TRISOMY 18 RESULT TEXT Low Risk 03/09/2025 12:35 PM EST [facility] TRISOMY 18 AGE-BASED RISK TEXT 11,993 (0.05%) 03/09/2025 12:35 PM EST [facility] TRISOMY 18 RISK SCORE TEXT <1/10,000 (<0.01%) 03/09/2025 12:35 PM EST [facility] TRISOMY 13 RESULT TEXT Low Risk 03/09/2025 12:35 PM EST [facility] TRISOMY 13 AGE-BASED RISK TEXT 16,347 (0.02%) 03/09/2025 12:35 PM EST [facility] TRISOMY 13 RISK SCORE TEXT <1/10,000 (<0.01%) 03/09/2025 12:35 PM EST [facility] MONOSOMY X RESULT TEXT Low Risk 03/09/2025 12:35 PM EST [facility] MONOSOMY X AGE-BASED RISK TEXT 1/255 (0.39%) 03/09/2025 12:35 PM EST [facility] MONOSOMY X RISK SCORE TEXT <1/10,000 (<0.01%) 03/09/2025 12:35 PM EST [facility] TRIPLOIDY RESULT TEXT Low Risk 10/2024 12:35 PM EST [facility] 22Q11.2 DELETION SYNDROME RESULT TEXT Low Risk 03/09/2025 12:35 PM EST [facility] 22Q11.2 DELETION SYNDROME POPULATION-BASED RISK TEXT 2,000 03/09/2025 12:35 PM EST [facility] 22Q11.2 DELETION SYNDROME RISK SCORE TEXT 04/13,03/09/2025 12:35 PM EST [facility] FOOTNOTES See Notes 03/09/2025 12:35 PM EST [facility] Comment: Testing Methodology DNA isolated from maternal blood, which contains placental DNA, is amplified at specific loci using a targeted PCR assay and is sequenced using a high- throughput sequencer. fraction is determined using a proprietary algorithm incorporating data from single nucleotide polymorphism-based (SNP-based) next-generation sequencing [Ian Kwon et al. Obstet Gynecol. 2014 Oct;124(2 Pt 1):210-8]. If there is sufficient fraction, sequencing data is analyzed using a proprietary SNP- based algorithm to determine the copy number for chromosomes 13, 18, 21, X and Y. If ordered, specific microdeletions will be evaluated using similar methodology [Jose G MCKAY et al. Am J Obstet Gynecol. 2015 May;212(3):332.e1-9]. If the fraction is insufficient, an additional algorithm to determine whether there is an increased risk for triploidy, trisomy 18, and trisomy 13 may be utilized, known as fraction based risk assessment (FFBR) [Tim et al. Ultrasound Obstet Gynecol 2019; 53:73-79]. If ordered on a vanishing twin , a proprietary analysis will be performed to differentiate between the viable/living fetus and the vanished fetus to allow for risk assessment of copy number of chromosomes 13,18, 21, X, Y, and specific microdeletions in the viable/living twin using the above described SNP- based algorithm. If ordered, and patient is RHD negative by genotype, RHD status will be evaluated using a proprietary algorithm if fraction is sufficient [Mindy Kebede et al. Obstet Gynecol 2023;145:1?7]. However, some samples will not produce a result due to failure to meet the necessary quality thresholds. This test has been validated on women with a mcconnell, twin, vanishing twin, or egg donor of at least nine weeks gestation. A result will not be available for higher order multiples and multiple gestation pregnancies with an egg donor or surrogate, or bone marrow transplant recipients. Complete test panel is not available for twin gestations and pregnancies achieved with an egg donor or surrogate. For twin pregnancies with a fraction value below the threshold for analysis, a sum of the fractions for both twins will be reported. As this assay is a screening test and not diagnostic, false positives and false negatives can occur. High risk test results need diagnostic confirmation by alternative testing methods. Low risk results do not fully exclude the diagnosis of any of the syndromes nor do they exclude the possibility of other chromosomal abnormalities or defects, which are not a part of this test. Potential sources of inaccurate results include, but are not limited to, mosaicism, low fraction, limitations of current diagnostic techniques, or misidentification of samples. This test will not identify all deletions associated with each microdeletion syndrome. This test has been validated for deletions ?0.5 Mb within the 22q11.2 A-D region. This test has been validated on full region deletions only for 1p36 deletion syndrome, Cri-du-chat syndrome, Prader Willi syndrome and Angelman syndrome and may be unable to detect smaller deletions. Microdeletion risk score may be dependent upon fraction, as deletions on the maternally inherited copy are difficult to identify at lower fractions. Test results should always be interpreted by a clinician in the context of clinical and familial data with the availability of genetic counseling when appropriate. Disclaimers The extraction, library preparation, and sequencing of this test were performed by [employer] [address] [place] [address] [address], [place] [address] (CLIA ID [id number]). The data analysis and reporting of this test were performed by [facility]., [address], [place] [address] (CLIA ID [id number]). The performance characteristics of this test were developed by [employer] [facility].(CLIA ID [id number]). This test has not been cleared or approved by the U.S. Food and Drug Administration (FDA). These laboratories are regulated under CLIA as qualified to perform high-complexity testing. 2024 [employer]. All Rights Reserved. Please refer to the attached PDF report Reviewed By: Abiel Cao M.D., Ph.D., [facility], Senior Mobile Application Engineer [facility] Auriculotherapist: Yolie Ross, Ph.D., [facility] IF THE ORDERING PROVIDER HAS QUESTIONS OR WISHES TO DISCUSS THE RESULTS, PLEASE CONTACT US AT [phone], option 2. Ask for the NIPT genetic counselor account installation specialist. Blood Venous blood specimen / Unknown Venipuncture / Unknown 03/02/2025 2:05 PM EST 03/02/2025 2:06 PM EST us Renetta HOWARD BLOOD ORDERABLES Final Result [facility] [address] [place] [address], documented in this encounter Visit Diagnoses Diagnosis Encounter for supervision of normal first in first trimester documented in this encounter Additional Health Concerns Assessment Noted Time PHQ-9 Depression Total Score: 18 025 3:13 PM EDT A fall risk assessment has been complete d for the patient 09/25/2024 11:33 AM EDT A Body Mass Index follow-up plan has been documented for the patient 03/02/2025 2:11 PM EST documented as of this encounter Care Teams Customer Engagement Representative Relationship Specialty Start Date End Date Dana Haile APRN [facility] [address] [address] PCP - General 09/23/24 documented as of this encounter
--- OUTSIDE RECORDS SUMMARY | 2025-03-18 14:52 | XMS_ITS | Encounter Summary ---
Author Organization [facility] Address [address] [place] [address] Care Team Providers Care Biopsychologist Name Role Phone Dana Haile APRN Primary Care Provider [phone] Reason for Referral * Imaging (Routine) - Closed Specialty Diagnoses / Procedures Referred By Garfield fonseca Referred To Contact Diagnoses state, incidental Procedures OB US Nuchal Translucency Renetta Alexis MD [address] [place] [phone] Phone: tel: fax: Referral ID Status Reason Start Date Expiration Date Visits Re quested Visits Authorized [id number] Closed 02/16/2025 08/18/2026 1 1 Reason for Visit * Imaging (Routine) - Closed Specialty Diagnoses / Procedures Referred By Garfield fonseca Referred To Contact Diagnoses state, incidental Procedures OB US Nuchal Translucency Renetta Alexis MD [address] [place] [address] Phone: tel: fax: Referral ID Status Reason Start Date Expiration Date Visits Re quested Visits Authorized [id number] Closed 02/16/2025 08/18/2026 1 1 Encounter Details Date Type Department Care Team (Latest Contact Info) Description 03/18/2025 2:52 PM EST - 03/18/2025 11:59 PM EST Hospital Encounter [facility] Ultrasound [address] [place] [address] state, incidental Discharge Disposition: Home or Self Care Social History Tobacco Use Types Packs/Day Years Used Date Smoking Tobacco: Never Smokeless Tobacco: Never Alcohol Use Standard Drinks/Week Comments Yes 0 (1 standard drink = 0.6 oz pur e alcohol) PHQ-2 Answer Date Recorded Patient Health Questionnaire-2 Score 6 03/18/2025 [place] Depression Scale Answer Date Recorded [place] Depression Scale Total 0 02/20/2024 The thought of harming myself has occurred to me . 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 20 tablet 3 02/16/2025 Vit-Fe Fumarate-FA ( Vitamins) 28-0.8 MG tabletIndications : state, incidental Take 1 tablet by mouth daily. 30 tablet 11 02/16/2025 02/16/2026 aspirin 81 MG EC tabletIndications :13 weeks gestation of Take 1 tablet by mouth daily. 90 tablet 3 03/18/2025 sertraline (Zoloft) 50 MG tabletIndications :Depression with anxiety Take 1 tablet by mouth daily. 90 tablet 3 03/18/2025 03/13/2026 documented as of this encounter Plan of Treatment Upcoming Encounters Date Type Department Care Team (Late st Contact Info) Description 04/15/2025 2:45 PM EST Routine Obstetrics & Gynecology [address] [place] [phone] Renetta Alexis MD [address] [place] [address] 05/20/2025 1:45 PM EST Routine Obstetrics & Gynecology [address] [place] [phone] [place] [address] [place] [phone] 05/20/2025 1:50 PM EST [facility] [address] [place] [address] documented as of this encounter Procedures Procedure Name Priority Date/Time Associated Diagnosis Comments OB US NUCHAL TRANSLUCENCY Routine 03/18/2025 3:33 PM EST state, incidental documented in this encounter Results * OB US Nuchal Translucency (03/18/2025 3:33 PM EST) Anatomical Region Laterality Modality Ultrasound 03/18/2025 3:16 PM EST Impressions 03/18/2025 3:55 PM EST The OB Ultrasound you requested has been resulted. Please navigate to the Imaging tab in [employer] for review. This message has been generated by the interface. Narrative Procedure Note Preethi Mcguire MD - 03/18/2025 IMPRESSION: The OB Ultrasound you requested has been resulted. Please navigate to theImaging tab in [employer] for review. This message has been generated by [email or web address]. us Renetta Alexis MD IMG OB US PROCEDURES Fin al Result documented in this encounter Visit Diagnoses Diagnosis state, incidental documented in this encounter Additional Health Concerns Assessment Noted Time PHQ-9 Depression Total Score: 21 025 3:51 PM EST A fall risk assessment has been complete d for the patient 03/18/2025 3:49 PM EST A Body Mass Index follow-up plan has been documented for the patient 03/18/2025 4:09 PM EST documented as of this encounter Care Teams Biopsychologist Relationship Specialty Start Date End Date Dana Haile APRN [address] [address] PCP - General 09/23/24 documented as of this encounter
--- OUTSIDE RECORDS SUMMARY | 2025-03-18 16:00 | XMS_ITS | Encounter Summary ---
Author Organization [facility] Address [address] [place] [address] Care Team Providers Care Machine Heel Seat Laster Name Role Phone Dana Haile MARILEE Primary Care Provider [phone] Reason for Referral * Imaging (Routine) - Authorized Specialty Diagnoses / Procedures Referred By Garfield fonseca Referred To Contact Diagnoses 13 weeks gestation of Procedures OB US Detail Anatomy Yesenia Valdez APRN, CNM [address] [facility] [address] [place] [phone] Phone: tel: fax: Referral ID Status Reason Start Date Expiration Date V isits Requested Visits Authorized [id number] Authorized 03/18/2025 09/17/2026 1 1 Reason for Visit * Reason Comments Routine Visit [id number] FMN o VB/LOFNo CTX/crampingWanting anxiety and depression medication --ROSIO 7: 19 PHQ9: 21 Encounter Details Date Type Department Care Team (Late st Contact Info) Description 03/18/2025 4:00 PM EST Routine Obstetrics & Gynecology [address] [place] [address] Yesenia Valdez APRN, CNM 1[address] [facility] [address] [place] [phone] 13 weeks gestation of (Primary Dx); Bicornate uterus; History of labor; History of section complicating ; Depression with anxiety Social History Tobacco Use Types Packs/Day Years Used Date Smoking Tobacco: Never Smokeless Tobacco: Never Alcohol Use Standard Drinks/Week Comments Yes 0 (1 standard drink = 0.6 oz pur e alcohol) PHQ-2 Answer Date Recorded Patient Health Questionnaire-2 Score 6 03/18/2025 Clarita Depression Scale Answer Date Recorded Clarita Depression Scale Total 0 02/20/2024 The thought [...] drink first t enedina in the morning ([employer]) to steady your nerves or to get [...] Sign Reading Time Taken Comments Blood Pressure 101/60 03/18/2025 3:48 PM EST Pulse 74 03/18/2025 3:48 PM EST Temperature 36.8 C (98.3 F) 03/18/2025 3:48 PM EST Respiratory Rate - - Oxygen Saturation 100% 03/18/2025 3:48 PM EST Inhaled Oxygen Concentration - - Weight 63.8 kg (140 lb 10.5 oz) 03/18/2025 3:48 PM EST Height 160 cm (5' 3 ) 03/18/2025 3:48 PM EST Body Mass Index 24.92 03/18/2025 3:48 PM EST documented in this encounter Functional Status * BP Answer Date of Assessment Author 101/60 03/18/2025 3:48 PM EST Profit, Latesha Osman RN * Temp Answer Date of Assessment Author 98.3 03/18/2025 3:48 PM EST Profit, Latesha Osman RN * Pulse Answer Date of Assessment Author 74 03/18/2025 3:48 PM EST Profit, Latesha Osman RN * SpO2 Answer Date of Assessment Author 100 03/18/2025 3:48 PM EST Profit, Latesha Osman RN * Height Answer Date of Assessment Author 63 03/18/2025 3:48 PM EST Profit, Latesha Osman RN * Weight Answer Date of Assessment Author 2250.46 03/18/2025 3:48 PM EST Profit, Latesha Osman RN * BMI (Calculated) Answer Date of Assessment Author 25 03/18/2025 3:48 PM EST Profit, Latesha Osman RN * Percent Excess Weight Loss Answer Date of Assessment Author 0 03/18/2025 3:48 PM EST Profit, Latesha Osman RN * Total Weight Change Percent Answer Date of Assessment Author 2222 03/18/2025 3:48 PM EST Profit, Latesha Osman RN * Weight Change Since Preop Answer Date of Assessment Author 63.79 03/18/2025 3:48 PM EST Profit, Latesha Osman RN * Initial Excess Weight Answer Date of Assessment Author -52.16 03/18/2025 3:48 PM EST Profit, Latesha Osman RN * IBW in lbs (Bariatric) Answer Date of Assessment Author 115 03/18/2025 3:48 PM EST Profit, Latesha Osman RN * Weight Change Since Last Visit Answer Date of Assessment Author 63.79 03/18/2025 3:48 PM EST Profit, Latesha Osman RN * IBW in kg (Bariatric) Answer Date of Assessment Author 52.16 03/18/2025 3:48 PM EST Profit, Latesha Osman RN * Percent of IBW Answer Date of Assessment Author 4,314.53 03/18/2025 3:48 PM EST Profit, Latesha Osman RN * EBW (kg) Answer Date of Assessment Author 2,248.98 03/18/2025 3:48 PM EST Profit, Latesha Osman RN * EBW (lbs) Answer Date of Assessment Author 2,243.27 03/18/2025 3:48 PM EST Kaitlin, Latesha Osman RN * Weight Change 24 hrs Answer Date of Assessment Author -.2 03/18/2025 3:48 PM TUNG Madrigal, Latesha Osman RN * Depression Screening Question Answer Date of Assessment Author Will the patient answer the depression risk questions? Yes 03/18/2025 3:51 PM EST Catalina Madrigal RN * BSA (Calculated - sq m) Answer Date of Assessment Author 1.68 03/18/2025 3:48 PM EST Kaitlin, Latesha Osman RN * BMI (Calculated) Answer Date of Assessment Author 24.92 03/18/2025 3:48 PM Latesha Plata RN * IBW/kg (Calculated) Male Answer Date of Assessment Author 56.9 03/18/2025 3:48 PM Latesha Plata RN * IBW/kg (Calculated) Female Answer Date of Assessment Author 52.4 03/18/2025 3:48 PM EST Kaitlin, Latesha Osman RN * IBW/kg (Calculated) Answer Date of Assessment Author 52.4 03/18/2025 3:48 PM EST Kaitlin, Latesha Osman RN * Over the past 2 weeks, how often have you been bothered by any of the following problems? Question Answer Date of Assessment Author Little interest or pleasure in doing things Nearly every day 03/18/2025 3:51 PM Armond Plata RN Feeling down, depressed, or hopeless Nearly every day 03/18/2025 3:51 PM Sharri Plata RN Patient Health Questionnaire-2 Score 6 03/18/2025 3:51 PM Sharri Plata RN * Over the past 2 weeks, how often have you been bothered by any of the following problems? Question Answer Date of Assessment Author Trouble falling or staying asleep, or sleeping too much Several days 03/18/2025 3:51 PM Sharri Plata RN Feeling tired or having little energy Nearly every day 03/18/2025 3:51 PM Sharri Plata RN Poor appetite or overeating Several days 03/18/2025 3:51 PM Sharri Plata RN Feeling bad about yourself - or that you are a failure or have let yourself or your family down Nearly every day 03/18/2025 3:51 PM Sharri Plata RN Trouble concentrating on things, such as reading the newspaper or watching television Nearly every day 03/18/2025 3:51 PM Sharri Plaat RN Moving or speaking so slowly that other people could have noticed. Or the opposite - being so fidgety or restless that you have been moving around a lot more than usual Several days 03/18/2025 3:51 PM Sharri Plata RN Thoughts that you would be better off or hurting yourself in some way Nearly every day 03/18/2025 3:51 PM Sharri Plata RN Patient Health Questionnaire-9 Score 21 03/18/2025 3:51 PM Sharri Plata RN * How difficult have these problems made it for you to do your work, take care of things at home, or get along with other people? Answer Date of Assessment Author Somewhat difficult 03/18/2025 3:51 PM Sharri Plata RN * Weight in (lb) to have BMI = 25 Answer Date of Assessment Author 140.8 03/18/2025 3:48 PM Latesha Plata RN * BMI (Calculated) Answer Date of Assessment Author 25 03/18/2025 3:48 PM Latesha Plata RN * Percent Excess Weight Loss Answer Date of Assessment Author 0 03/18/2025 3:48 PM Latesha Plata RN * Weight Change Since Preop Answer Date of Assessment Author 63.8 03/18/2025 3:48 PM Latesha Plata RN * Initial Excess Weight Answer Date of Assessment Author -52.16 03/18/2025 3:48 PM Latesha Plata RN * IBW in kg (Bariatric) Answer Date of Assessment Author 52.16 03/18/2025 3:48 PM Latesha Plata RN * IBW in lb (Bariatric) Answer Date of Assessment Author 115 03/18/2025 3:48 PM Latesha Plata RN * Weight Change Since Last Visit Answer Date of Assessment Author -0.2 03/18/2025 3:48 PM EST Profit, Latesha Osman RN * Percent of IBW Answer Date of Assessment Author 122.31 03/18/2025 3:48 PM EST Profit, Latesha Osman RN * EBW (kg) Answer Date of Assessment Author 11.63 03/18/2025 3:48 PM EST Profit, Latesha Osman RN * EBW (lb) Answer Date of Assessment Author 25.65 03/18/2025 3:48 PM EST Profit, Latesha Osman RN * Difference in Weight Since Last Visit Answer Date of Assessment Author -0.2 03/18/2025 3:48 PM EST Profit, Latesha Osman RN * Temp (in Celsius) for BAD RIVER BAND IV Answer Date of Assessment Author 36.8 03/18/2025 3:48 PM EST Profit, Latesha Osman RN * IBW/kg (Calculated) Answer Date of Assessment Author 52.4 03/18/2025 3:48 PM EST Profit, Latesha Osman RN * Adult Low Range Vt 6mL/kg Answer Date of Assessment Author 314.4 03/18/2025 3:48 PM EST Profit, Latesha Osman RN * Adult Moderate Range Vt 8mL/kg Answer Date of Assessment Author 419.2 03/18/2025 3:48 PM EST Profit, Latesha Osman RN * Adult High Range Vt 10mL/kg Answer Date of Assessment Author 524 03/18/2025 3:48 PM EST Profit, Latesha Osman RN * Pain Score Answer Date of Assessment Author 0 03/18/2025 3:48 PM EST Profit, Latesha Osman RN * Pain Screening/Additional Assessments Question Answer Date of Assessment Author Pain Screening/Assessments Pain Screening 03/18/2025 3 :48 PM EST Sharri Madrigal RN * Pain Screening Answer Date of Assessment Author 0-10 03/18/2025 3:48 PM EST Profit, Latesha Osman RN * BP Answer Date of Assessment Author 101/60 03/18/2025 3:48 PM EST Profit, Latesha Osman RN * Temp Answer Date of Assessment Author 98.3 03/18/2025 3:48 PM EST Profit, L auren M, RN * Pulse Answer Date of Assessment Author 74 03/18/2025 3:48 PM EST Kaitlin, Latesha Osman RN * SpO2 Answer Date of Assessment Author 100 03/18/2025 3:48 PM TUNG Madrigal, Latesha Osman RN * Height Answer Date of Assessment Author 63 03/18/2025 3:48 PM TUNG Madrigal, Latesha Osman RN * Weight Answer Date of Assessment Author 2250.46 03/18/2025 3:48 PM EST Kaitlin, Latesha Osman RN * BSA (Calculated - sq m) Answer Date of Assessment Author 1.68 03/18/2025 3:48 PM TUNG Madrigal, Latesha Osman RN * BMI (Calculated) Answer Date of Assessment Author 24.92 03/18/2025 3:48 PM Sharri Plata RN * Over the past 2 weeks, how often have you been bothered by any of the following problems? Question Answer Date of Assessment Author Little interest or pleasure in doing things Nearly every day 03/18/2025 3:51 PM Armond Plata RN Feeling down, depressed, or hopeless Nearly every day 03/18/2025 3:51 PM Sharri Plata RN Patient Health Questionnaire-2 Score 6 03/18/2025 3:51 PM Sharri Plata RN * Over the past 2 weeks, how often have you been bothered by any of the following problems? Question Answer Date of Assessment Author Trouble falling or staying asleep, or sleeping too much Several days 03/18/2025 3:51 PM Sharri Plata RN Feeling tired or having little energy Nearly every day 03/18/2025 3:51 PM Sharri Plata RN Poor appetite or overeating Several days 03/18/2025 3:51 PM Sharri Plata RN Feeling bad about yourself - or that you are a failure or have let yourself or your family down Nearly every day 03/18/2025 3:51 PM Sharri Plata RN Trouble concentrating on things, such as reading the newspaper or watching television Nearly every day 03/18/2025 3:51 PM Sharri Plata RN Moving or speaking so slowly that other people could have noticed. Or the opposite - being so fidgety or restless that you have been moving around a lot more than usual Several days 03/18/2025 3:51 PM Sharri Plata RN Thoughts that you would be better off or hurting yourself in some way Nearly every day 03/18/2025 3:51 PM Sharri Plata RN Patient Health Questionnaire-9 Score 21 03/18/2025 3:51 PM Sharri Plata RN * How difficult have these problems made it for you to do your work, take care of things at home, or get along with other people? Answer Date of Assessment Author Somewhat difficult 03/18/2025 3:51 PM Sharri Plata RN * Weight in (lb) to have BMI = 25 Answer Date of Assessment Author 140.8 03/18/2025 3:48 PM Latesha Plata RN * Pain Score Answer Date of Assessment Author 0 03/18/2025 3:48 PM Latesha Plata RN * Learning Needs Screening Question Answer Date of Assessment Author Are there things (barriers) that make it harder for this patient to learn? No Barriers 03/18/2025 3:49 PM Sharri Plata RN What is the best language to use for teaching this patient about his/her health? Sudanese 03/18/2025 3:49 PM Sharri Plata RN What format does this patien t think is most helpful for learning? Listening 03/18/2025 3:49 PM Sharri Plata RN Primary Learner Patient 03/18/2025 3:49 PM EST Pr ofitSharri RN * Readiness to Learn Question Answer Date of Assessment Author Readiness Acceptance 03/18/2025 3:49 PM EST Profi tSharri RN documented as of this encounter Mental Status * BP Answer Entry Date Author 101/60 03/18/2025 3:48 PM Latesha Plata RN * Temp Answer Entry Date Author 98.3 03/18/2025 3:48 PM Latesha Plata RN * Pulse Answer Entry Date Author 74 03/18/2025 3:48 PM Latesha Plata RN * SpO2 Answer Entry Date Author 100 03/18/2025 3:48 PM EST Profit, Latesha Osman RN * Height Answer Entry Date Author 63 03/18/2025 3:48 PM EST Profit, Latesha Osman RN * Weight Answer Entry Date Author 2250.46 03/18/2025 3:48 PM EST Profit, Ltaesha Osman RN * BMI (Calculated) Answer Entry Date Author 25 03/18/2025 3:48 PM EST Profit, Latesha Osman RN * Percent Excess Weight Loss Answer Entry Date Author 0 03/18/2025 3:48 PM EST Profit, Latesha Osman RN * Total Weight Change Percent Answer Entry Date Author 22203/18/2025 3:48 PM EST Profit, Latesha Osman RN * Weight Change Since Preop Answer Entry Date Author 63.79 03/18/2025 3:48 PM EST Profit, Latesha Osman RN * Initial Excess Weight Answer Entry Date Author -52.16 03/18/2025 3:48 PM EST Profit, Latesha Osman RN * IBW in lbs (Bariatric) Answer Entry Date Author 115 03/18/2025 3:48 PM EST Profit, Latesha Osman RN * Weight Change Since Last Visit Answer Entry Date Author 63.79 03/18/2025 3:48 PM EST Profit, Latesha Osman RN * IBW in kg (Bariatric) Answer Entry Date Author 52.16 03/18/2025 3:48 PM EST Profit, Latesha Osman RN * Percent of IBW Answer Entry Date Author 4,314.53 03/18/2025 3:48 PM EST Profit, Latesha Osman RN * EBW (kg) Answer Entry Date Author 2,248.98 03/18/2025 3:48 PM EST Profit, Latesha Osman RN * EBW (lbs) Answer Entry Date Author 2,243.27 03/18/2025 3:48 PM EST Profit, Latesha Osman RN * Weight Change 24 hrs Answer Entry Date Author -.2 03/18/2025 3:48 PM EST Profit, Latesha Osman RN * Depression Screening Question Answer Entry Date Author Will the patient answer the depression risk questions? Yes 03/18/2025 3:51 PM EST ProfitCatalina RN * BSA (Calculated - sq m) Answer Entry Date Author 1.68 03/18/2025 3:48 PM Latesha Plata RN * BMI (Calculated) Answer Entry Date Author 24.92 03/18/2025 3:48 PM Latesha Plata RN * IBW/kg (Calculated) Male Answer Entry Date Author 56.9 03/18/2025 3:48 PM TUNG Madrigal, Latesha Osman RN * IBW/kg (Calculated) Female Answer Entry Date Author 52.4 03/18/2025 3:48 PM TUNG Madrigal, Latesha Osman RN * IBW/kg (Calculated) Answer Entry Date Author 52.4 03/18/2025 3:48 PM Latesha Plata RN * Over the past 2 weeks, how often have you been bothered by any of the following problems? Question Answer Entry Date Author Little interest or pleasure in doing things Nearly every day 03/18/2025 3:51 PM Armond Plata RN Feeling down, depressed, or hopeless Nearly every day 03/18/2025 3:51 PM Sharri Plata RN Patient Health Questionnaire-2 Score 6 03/18/2025 3:51 PM Sharri Plata RN * Over the past 2 weeks, how often have you been bothered by any of the following problems? Question Answer Entry Date Author Trouble falling or staying asleep, or sleeping too much Several days 03/18/2025 3:51 PM Sharri Plata RN Feeling tired or having little energy Nearly every day 03/18/2025 3:51 PM Sharri Plata RN Poor appetite or overeating Several days 03/02 3:51 PM Sharri Plata RN Feeling bad about yourself - or that you are a failure or have let yourself or your family down Nearly every day 03/18/2025 3:51 PM Sharri Plata RN Trouble concentrating on things, such as reading the newspaper or watching television Nearly every day 03/18/2025 3:51 PM Sharri Plata RN Moving or speaking so slowly that other people could have noticed. Or the opposite - being so fidgety or restless that you have been moving around a lot more than usual Several days 03/18/2025 3:51 PM Sharri Plata RN Thoughts that you would be better off or hurting yourself in some way Nearly every day 03/18/2025 3:51 PM Sharri Plata, RN Patient Health Questionnaire-9 Score 21 03/18/2025 3:51 PM Sharri Plata RN * [facility] Health Concern Calculation Answer Entry Date Author 2 03/18/2025 3:51 PM Latesha Plata RN * How difficult have these problems made it for you to do your work, take care of things at home, or get along with other people? Answer Entry Date Author Somewhat difficult 03/18/2025 3:51 PM Sharri Plata RN * Restart Pain Assessment Timer Answer Entry Date Author Yes 03/18/2025 3:48 PM Latesha Plata RN * Weight in (lb) to have BMI = 25 Answer Entry Date Author 140.8 03/18/2025 3:48 PM Latesha Plata RN * BMI (Calculated) Answer Entry Date Author 25 03/18/2025 3:48 PM Latesha Plata RN * Percent Excess Weight Loss Answer Entry Date Author 0 03/18/2025 3:48 PM Latesha Plata RN * Weight Change Since Preop Answer Entry Date Author 63.8 03/18/2025 3:48 PM Latesha Plata RN * Initial Excess Weight Answer Entry Date Author -52.16 03/18/2025 3:48 PM Latesha Plata RN * IBW in kg (Bariatric) Answer Entry Date Author 52.16 03/18/2025 3:48 PM Latesha Plata RN * IBW in lb (Bariatric) Answer Entry Date Author 115 03/18/2025 3:48 PM Latesha Plata RN * Weight Change Since Last Visit Answer Entry Date Author -0.2 03/18/2025 3:48 PM Latesha Plata RN * Percent of IBW Answer Entry Date Author 122.31 03/18/2025 3:48 PM Latesha Plata RN * EBW (kg) Answer Entry Date Author 11.63 03/18/2025 3:48 PM EST Profit, Latesha Osman RN * EBW (lb) Answer Entry Date Author 25.65 03/18/2025 3:48 PM EST Profit, Latesha Osman RN * Difference in Weight Since Last Visit Answer Entry Date Author -0.2 03/18/2025 3:48 PM EST Profit, Latesha Osman RN * Temp (in Celsius) for BAD RIVER BAND IV Answer Entry Date Author 36.8 03/18/2025 3:48 PM EST Profit, Latesha Osman RN * IBW/kg (Calculated) Answer Entry Date Author 52.4 03/18/2025 3:48 PM EST Profit, Latesha Osman RN * Adult Low Range Vt 6mL/kg Answer Entry Date Author 314.4 03/18/2025 3:48 PM EST Profit, Latesha Osman RN * Adult Moderate Range Vt 8mL/kg Answer Entry Date Author 419.2 03/18/2025 3:48 PM EST Profit, Latesha Osman RN * Adult High Range Vt 10mL/kg Answer Entry Date Author 524 03/18/2025 3:48 PM EST Profit, Latesha Osman RN * Pain Score Answer Entry Date Author 0 03/18/2025 3:48 PM EST Profit, Latesha Osman RN * ROSIO-7 Question Answer Entry Date Author Feeling Nervous, Anxious, or on Edge 2 03/18/2025 3:52 PM EST Sharri Madrigal RN Not Being Able to Stop or Control Worrying 3 03/18/2025 3:52 PM EST Sharri Madrigal RN Worrying too Much About Different Things 3 03/18/2025 3:52 PM EST Sharri Madrigal RN Trouble Relaxing 3 03/18/2025 3:52 PM EST Sharri Madrigal RN Being so Restless That it is Hard to Sit Still 2 03/18/2025 3:52 PM EST Sharri Madrigal RN Becoming Easily Annoyed or Irritable 3 03/18/2025 3:52 PM EST Sharri Madrigal RN Feeling Afraid as if Something Awful Might Happen 3 03/18/2025 3:52 PM EST Sharri Madrigal RN ROSIO-7 Total Score 19 03/18/2025 3:5 2 PM Sharri Plata RN If you checked off any problems, how difficult have these problems made it for you to do your work, take care of things at home, or get along with other people? Somewhat difficult 03/18/2025 3:52 PM Sharri Plata RN * Pain Screening Answer Entry Date Author 0-10 03/18/2025 3:48 PM Latesha Plata RN documented in this encounter Miscellaneous Notes * Progress Notes - Yesenia Valdez, MARILEE, RAMONITA - 03/18/2025 4:00 PM EST Subjective Chief Complaint Patient presents with Routine Visit 13w1d Endorses FM No VB/LOF No CTX/cramping Wanting anxiety and depression medication --ROSIO 7: 19 PHQ9: 21 Cornel Fleming is a 24 y.o. at 13w1d with a working estimated date of delivery of 09/22/2025,by Ultrasound who presents for a routine visit. She denies vaginal bleeding, leakage of fluid, and contractions. PHQ- 9 21 // ROSIO 7 19 - after questioning she had answered on the last few months. Denies any SI/HIfeelings now. Last time she did was in December prior to the . Rates anxiety 7 or 8/10 and depression 4 or 5/10. Feels working so much and her first Hever without her grandmother is her contributing factor, but she has to to make ends meet at this time. FOB is not involved. She makes time for her self. Her is complicated by: - bicornuate uterus - h/o breech G1 - h/o c/s x 1 G2 for breech - h/o labor G2 - abnormal UAD The following portions of the chart were reviewed this encounter and updated as appropriate: Meds Objective Physical Exam Weight: 63.8 kg (140 lb 10.5 oz), Pregravid BMI: 25.00 Expected Total Weight Gain: 7 kg (15 lb)-11.5 kg (25 lb) BP: 101/60 Heart Rate: US Labs HGB (g/dL) Date/Time Value 02/16/2025 1435 9.5 (L) HCT (%) Date/Time Value 02/16/2025 1435 32.1 (L) ABO/Rh (no units) Date/Time Value 02/16/2025 1435 O Positive Hepatitis B Surf Antigen (no units) Date/Time Value 02/16/2025 1435 Negative No results found for: PAPPA , AFP , HCG , ESTRIOL , INHBA Normal NT / abnormal UAD Assessment/Plan Cornel was seen today for routine visit. Diagnoses and all orders for this visit: 13 weeks gestation of (Primary) - OB US Detail Anatomy; Future - aspirin 81 MG EC tablet; Take 1 tablet by mouth daily. Bicornate uterus History of labor History of section complicating Depression with anxiety - sertraline (Zoloft) 50 MG tablet; Take 1 tablet by mouth daily. Continue vitamin. Labs reviewed. NIPT low risk Order placed for anatomy scan at 20 weeks. Zoloft rx today. Reviewed ER precautions. Encouraged therapy. Follow up in 4 weeks for a routine visit. documented in this encounter Plan of Treatment Upcoming Encounters Date Type Department Care Team (Late st Contact Info) Description 04/15/2025 2:45 PM EST Routine Obstetrics & Gynecology [address] [place] [address] Renetta Alexis MD [address] [place] [address] 05/20/2025 1:45 PM EST Routine Obstetrics & Gynecology [address] [place] [address] Renetta Alexis MD [address] [place] [address] 05/20/2025 1:50 PM EST Appointment [facility] [address] [place] [address] Scheduled Orders Name Type Priority Associated Diagnoses Orde r Schedule OB US Detail Anatomy Imaging Routine 13 weeks gestation of Expected: 05/19/2025, Expires: 09/19/2026 documented as of this encounter Visit Diagnoses Diagnosis 13 weeks gestation of - Primary Bicornate uterus Other congenital anomaly of uterus History of labor History of section complicating Previous delivery, unspecified as to episode of care or not applicable Depression with anxiety Dysthymic disorder documented in this encounter Additional Health Concerns Assessment Noted Time PHQ-9 Depression Total Score: 21 025 3:51 PM EST A fall risk assessment has been complete d for the patient 03/18/2025 3:49 PM EST A Body Mass Index follow-up plan has been documented for the patient 03/18/2025 4:09 PM EST documented as of this encounter Care Teams Machine Heel Seat Laster Relationship Specialty Start Date End Date Dana Haile APRN [facility] [address] [address] PCP - General 09/23/24 documented as of this encounter
[2025-03-28 20:29] LABS: Influenza A, PCR Not Detected (NotDetected); Influenza B, PCR Not Detected (NotDetected)
[2025-03-29 03:46] LABS: Coronavirus 19, PCR Detected (NotDetected)
--- OUTSIDE RECORDS SUMMARY | 2025-03-30 09:34 | XMS_ITS | Encounter Summary ---
Author Organization Healthcare Address [address] [place] [address] Care Team Providers Care Plant Attendant Or Assistant Operator Name Role Phone Dana Haile APRN Primary Care Provider Encounter Details Date Type Department Care Team (Late st Contact Info) Description 02/17/2025 Results Follow-Up Obstetrics & Gynecology [address] [place] [address] Renetta Alexis MD [address] [place] [address] Social History Tobacco Use Types Packs/Day Years Used Date Smoking Tobacco: Never Smokeless Tobacco: Never Alcohol Use Standard Drinks/Week Comments Yes 0 (1 standard drink = 0.6 oz pur e alcohol) PHQ-2 Answer Date Recorded Patient Health Questionnaire-2 Score 4 09/26/2024 [place] Depression Scale Answer Date Recorded [place] Depression Scale Total 0 02/20/2024 The thought [...] drink first t enedina in the morning (EYE-UNARMED SECURITY OFFICER) to steady your nerves or to get [...] encounter Miscellaneous Notes * Telephone Encounter - Noreen Juliet Fisher - 02/18/2025 3:24 PM EST Clinical Concern/Question Reason for Call: pt returning call to nurse. Please call Best contact number: [phone] (mobile) Optimal time of day to reach caller: ANYTIME before 9am or around 1pm and okay LVM Additional comments/information from caller: None Note: Please do not reply to this message. Follow-up communication and further actions as a result of this message need to be communicated with the patient directly, if the patient is not active onMyChart. If the patient is active on MyChart, they will receive notification of the communication/outcome via [employer]. documented in this encounter Plan of Treatment Upcoming Encounters Date Type Department Care Team (Late st Contact Info) Description 04/15/2025 2:45 PM EST Routine Obstetrics & Gynecology [address] [place] [address] Renetta Alexis MD [address] [place] [address] 05/20/2025 1:45 PM EST Routine Obstetrics & Gynecology [address] [place] [address] Renetta Alexis MD [address] [place] [address] 05/20/2025 1:[address] [facility] Ultrasound [address] [place] [address] documented as of this encounter Visit Diagnoses Diagnosis Cystitis- Primary Unspecified cystitis documented in this encounter Additional Health Concerns Assessment Noted Time PHQ-9 Depression Total Score: 18 025 3:13 PM EDT A fall risk assessment has been complete d for the patient 09/25/2024 11:33 AM EDT A Body Mass Index follow-up plan has been documented for the patient 02/16/2025 3:55 PM EST documented as of this encounter Care Teams Plant Attendant Or Assistant Operator Relationship Specialty Start Date End Date Dana Haile APRN [facility] [address] [address] PCP - General 09/23/24 documented as of this encounter
--- OUTSIDE RECORDS SUMMARY | 2025-03-30 09:34 | XMS_ITS | Encounter Summary ---
Author Organization Healthcare Address [address] [place] [address] Care Team Providers Care Plant Etiologist Name Role Phone Dana Haile APRN Primary Care Provider [phone] Encounter Details Date Type Department Care Team (Latest Contact Info) Description 03/02/2025 Travel Social History Tobacco Use Types Packs/Day Years Used Date Smoking Tobacco: Never Smokeless Tobacco: Never Alcohol Use Standard Drinks/Week Comments Yes 0 (1 standard drink = 0.6 oz pur e alcohol) PHQ-2 Answer Date Recorded Patient Health Questionnaire-2 Score 4 09/26/2024 [place] Depression Scale Answer Date Recorded [place] Depression Scale Total 0 02/20/2024 The thought [...] drink first t enedina in the morning (EYE-OPERATIONS LABEL CLERK) to steady your nerves or to get [...] as of this encounter Functional Status * Communicable Disease Screening Question Answer Date of Assessment Author Have you been in contact wit h someone who was sick? No / Unsure 03/02/2025 1:58 PM EST Amy Prado Z Do you have any of the following new or worsening symptoms? None of these 03/02/2025 1:58 PM EST Elmer Pradoia Z * Travel Screening Question Answer Date of Assessment Author Have you traveled intern[place] bl[place] or domestically in the last month? No 03/02/2025 1:58 PM EST Elmer Pradoia Z documented as of this encounter Mental Status * Communicable Disease Screening Question Answer Entry Date Author Have you been in contact wit h someone who was sick? No / Unsure 03/02/2025 1:58 PM EST Janay Pradoricia Z Do you have any of the following new or worsening symptoms? None of these 03/02/2025 1:58 PM EST Janay Pradoricia Z * Travel Screening Question Answer Entry Date Author Have you traveled internatio blaze or domestically in the last month? No 03/02/2025 1:58 PM Amy Riggins documented in this encounter Plan of Treatment Upcoming Encounters Date Type Department Care Team (Late st Contact Info) Description 04/15/2025 2:45 PM EST Routine Obstetrics & Gynecology [address] [place] [address] Renetta Alexis MD [address] [place] [address] 05/20/2025 1:45 PM EST Routine Obstetrics & Gynecology [address] [place] [address] Renetta Alexis MD [address] [place] [address] 05/20/2025 1:50 PM EST Appointment [facility] Ultrasound [address] [place] [address] documented as of this encounter Visit Diagnoses Not on filedocumented in this encounter Additional Health Concerns Assessment Noted Time PHQ-9 Depression Total Score: 18 09/26/2 025 3:13 PM EDT A fall risk assessment has been complete d for the patient 09/25/2024 11:33 AM EDT A Body Mass Index follow-up plan has been documented for the patient 03/02/2025 2:11 PM EST documented as of this encounter Care Teams Plant Etiologist Relationship Specialty Start Date End Date Dana Haile APRN [address] [address] PCP - General 09/23/24 documented as of this encounter
--- OUTSIDE RECORDS SUMMARY | 2025-03-30 09:34 | XMS_ITS | Encounter Summary ---
Author Organization Healthcare Address [address] [place] [address] Care Team Providers Care Grain Receiver Name Role Phone Dana Haile APRN Primary Care Provider Encounter Details Date Type Department Care Team (Late st Contact Info) Description 03/09/2025 Results Follow-Up Obstetrics & Gynecology [address] [place] [address] Renetta Alexis MD [address] [place] [address] Social History Tobacco Use Types Packs/Day Years Used Date Smoking Tobacco: Never Smokeless Tobacco: Never Alcohol Use Standard Drinks/Week Comments Yes 0 (1 standard drink = 0.6 oz pur e alcohol) PHQ-2 Answer Date Recorded Patient Health Questionnaire-2 Score 4 09/26/2024 [place] Depression Scale Answer Date Recorded [place] Depression Scale Total 0 02/20/2024 The thought [...] drink first t enedina in the morning (EYE-SOLAR SALES) to steady your nerves or to get [...] encounter Miscellaneous Notes * Telephone Encounter - Anamaria Novoa - 03/09/2025 3:39 PM EST Status Update Call #1 1st call regarding the status of the initial request. Pt returning our call; please leave a voicemail. Pt is at work Best contact number: [phone] (mobile) Optimal time of day to reach caller: ANYTIME Additional comments/information from caller: None Note: Please do not reply to this message. Follow-up communication and further actions as a result of this message need to be communicated with the patient directly, if the patient is not active onMyChart. If the patient is active on MyChart, they will receive notification of the communication/outcome via [employer]. documented in this encounter Plan of Treatment Upcoming Encounters Date Type Department Care Team (Late st Contact Info) Description 04/15/2025 2:45 PM EST Routine Obstetrics & Gynecology [address] [place] [address] Renetta Alexis MD [address] [place] [address] 05/20/2025 1:45 PM EST Routine Obstetrics & Gynecology [address] [place] [address] Renetta Alexis MD [address] [place] [address] 05/20/2025 1:50 PM EST Appointment [facility] Department [address] [place] [address] documented as of this encounter Visit Diagnoses [...] documented as of this encounter Care Teams Grain Receiver Relationship Specialty Start Date End Date Dana Haile APRN [address] [place] [address] PCP - General 09/23/24 documented as of this encounter
--- OUTSIDE RECORDS SUMMARY | 2025-03-30 09:34 | XMS_ITS | Patient Health Record ---
Author Organization [facility] Address [address] [place] [address] Care Team Providers Care Recycling Assistant Name Role Phone Dana Ford [phone] Allergies No Known Allergies Reason For Referral [...] tobac co user? 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 Problem Primigravida (815423933) Supervision of normal first in second trimester (Z34.02) Active confirmed Problem Third trimester (29179003) Encounter for supervision of other normal in third trimester (Z34.83) Active confirmed Problem Footling breech presentation, single or unspecified fetus (O32.8XX0) Active confirmed Plan Of Treatment No Information Insurance Providers Payer Name Payer Address Payer Phone Subscriber Number Group Number Insured Name Patient Relationship to Insured Coverage Start Date Coverage End Date Daren VALDEZ [address] [place] [address] [id number] Cornel Fleming Self - patient is the insured Medical (General) History Medical History History ICD Code Anxiety bicornuate uterus Surgical History Surgery Date(Month/Year)
--- OUTSIDE RECORDS SUMMARY | 2025-03-30 09:34 | XMS_ITS | Clinical Summary ---
Author Organization [facility] Address [address] [place] [address] Care Team Providers Care Safety And Security Officer Name Role Phone Dana Haile APRN Primary Care Provider [phone] Allergies No known active allergies Medications Vit-Fe Fumarate-FA ( Vitamins) 28-0.8 MG tabletIndication s: state, incidental Take 1 tablet by mouth daily. 30 tablet 11 02/16/2025 6 Active ondansetron (Zofran) 4 MG tabletIndication s: state, incidental Take 1 tablet by mouth every 8 hours as needed for nausea or vomiting. 20 tablet 3 02/16/2025 Active sertraline (Zoloft) 50 MG tabletIndication s:Depression with anxiety Take 1 tablet by mouth daily. 90 tablet 3 03/18/2025 6 Active aspirin 81 MG EC tabletIndication s:13 weeks gestation of Take 1 tablet by mouth daily. 90 tablet 3 03/18/2025 Active Active Problems Problem Noted Date Diagnosed Date state, incidental 02/16/2025 Assessment & Plan (02/16/2025 3:55 PM EST): Orders: US Pelvis Transvaginal; Future CBC W/O [...] hours as needed for nausea or vomiting. History of section complicating pregnan cy 02/16/2025 Assessment & Plan (02/16/2025 3:55 PM EST): History of labor 02/16/2025 Assessment & Plan (02/16/2025 3:55 PM EST): Depression with anxiety 07/03/2024 Assessment & Plan (02/16/2025 3:55 PM EST): Chronic rhinitis 07/03/2024 Pap smear for cervical cancer screening 07/04/19 25 Assessment & Plan (07/03/2024 10:03 AM EDT): - Pap smear performed in office today. Discussed when patient should expect results of Pap smear. - reviewed health maintenance including diet, regular exercise, dietary supplementation with Ca/Vit D and periodic exams Orders: Referred ThinPrep Pap Reflex to HPV (SO) Bicornate uterus 06/28/2023 Assessment & Plan (02/16/2025 3:55 PM EST): Estimated Date of Delivery Comme nts Yes 09/22/2025 Based on Ultraso und Resolved Problems Problem Noted Date Diagnosed Date Resolved Date Current with histo ry of pre-term labor in first trimester 02/16/2025 02/16/2025 Encounter for initial prescr iption of transdermal patch hormonal contraceptive device 07/03/2024 02/16/2025 Assessment & Plan (07/03/2024 10:03 AM EDT): [...] 3 weeks, then remove for 1 week. 35 weeks gestation of 12/07/2023 02/20/2024 Congenital [...] pads, warm baths - continue PNV - ejnna US scheduled - RTC 4 weeks Assessment [...] Encounters Date Type Department Care Team Description 03/19/2025 Telephone Obstetrics & Gynecology [address] [place] [address] Renetta Alexis MD 03/18/2025 4:00 PM EST Routine Obstetrics & Gynecology [address] [place] [address] Yesenia Valdez, EVALUATION ADVISOR, CNM 13 weeks gestation of (Primary Dx); Bicornate uterus; History of labor; History of section complicating ; Depression with anxiety 03/18/2025 2:52 PM EST - 03/18/2025 11:59 PM EST Hospital Encounter [facility] [address] [place] [address] state, incidental Discharge Disposition: Home or Self Care 03/18/2025 Travel 03/18/2025 Telephone Obstetrics & Gynecology [address] [address] Yesenia Valdez, MARILEE, RAMONITA HCN - Patient Message 03/09/2025 Results Follow-Up Obstetrics & Gynecology [address] [place] [address] Renetta Alexis MD 03/02/2025 2:15 PM EST Clinical Support Obstetrics & Gynecology [address] [place] [address] Encounter for supervision of normal first in first trimester 03/02/2025 Travel 02/17/2025 Results Follow-Up Obstetrics & Gynecology [address] [place] [address] Renetta Alexis MD 02/16/2025 2:00 PM EST Initial Obstetrics & Gynecology [address] [place] [address] Renetta Alexis MD GA: [id number] 02/16/2025 1:55 PM EST Ancillary Procedure Obstetrics & Gynecology [address] [place] [address] state, incidental 02/16/2025 Travel 01/19/2025 Telephone Obstetrics & Gynecology [address] [place] [address] Renetta Alexis MD HCN Clinical Concern/Question (ED [...] Recorded Patient Health Questionnaire-2 Score 6 03/18/2025 [place] Depression Scale Answer Date Recorded [place] Depression Scale Total 0 02/20/2024 The thought [...] drink first t enedina in the morning (EYE-ASSOCIATE DENTIST) to steady your nerves or to get [...] F) 03/18/2025 3:48 PM EST Respiratory Rate 16 07/03/2024 8:50 AM EDT Oxygen Saturation 100% 03/18/2025 3:48 PM EST Inhaled Oxygen Concentration - - Weight 63.8 kg (140 lb 10.5 oz) 03/18/2025 3:48 PM EST Height 160 cm (5' 3 ) 03/18/2025 3:48 PM EST Body Mass Index 24.92 03/18/2025 3:48 PM EST Plan of Treatment Upcoming Encounters Date Type Department Care Team (Late st Contact Info) Description 04/15/2025 2:45 PM EST Routine Obstetrics & Gynecology [address] [place] [address] Renetta Alexis MD [address] [place] [address] 05/20/2025 1:45 PM EST Routine Obstetrics & Gynecology [address] [place] [address] Renetta Alexis MD [address] [place] [address] 05/20/2025 1:50 PM EST Appointment [facility] [address] [place] [address] Health Maintenance Due Date Last Done Comments [facility]-Infant/Child/Adol SDOH Screenings 2002 [facility]-Varicella Vaccines (1 of 2 - 13+ 2-dose series) 09/11/2015 HPV Vaccines (1 - 3-dose series) 2017 [facility]- SDOH Screenings 2020 [facility]-Adult SDOH Screenings 2020 [facility]-Hepatitis B Vaccines (1 of 3 - 19+ 3-dose series) 2021 [facility]-Pap Smear 09/11/2023 TOM-XUWVA-50 Vaccine (3 - season) 2024 01/20/2021, 12/30/2020 [facility]-Influenza Vaccine (#1) 2024 [facility]-Chlamydia and Gonorrhea Screening 02/16/2026 02/16/2025, 02/16/2025, 06/28/2023, Additional history exists [facility]-Depression Screening 03/18/2026 025, 03/18/2025, 02/20/2024 [facility]-DTaP,Tdap,and Td Vaccines (2 - Td or Tdap) 11/18/2033 11/19/2023 [facility]-Zoster Vaccines (1 of 2) 2052 [facility]-Hepatitis A Vaccines Completed 10/31/2017, 04/03 [facility]-HIV Screening Completed 02/16/2025, , 06/28/2023 [facility]-Hepatitis C Screening Completed 2024, 06/28/2023, 05/26/2021, Additional history exists [facility]-HIB Vaccines Aged Out No longer e ligible based on patient's age to complete this topic [facility]-IPV Vaccines Aged Out No longer e ligible based on patient's age to complete this topic [facility]-Pneumococcal Vaccine: Pediatrics (0 to 5 Years) and At-Risk Patients (6 to 49 Years) Aged Out No longer eligible based on patient's age to complete this topic [facility]-RSV Vaccine: 60+ Years or (No Doses Required) Completed [facility]-Rotavirus Vaccines Aged Out No lo nger eligible based on patient's age to complete this topic Procedures Procedure Name Priority Date/Time Associated Diagnosis Comments OB US NUCHAL TRANSLUCENCY Routine 03/18/2025 3:33 PM EST state, incidental PANORAMA TEST Routine 2:05 PM EST Encounter for supervision of normal first in first trimester HIV 1/2 ANTIBODY/ANTIGEN SCREEN WITH REFLEX TO [...] EST state, incidental HIV 1/2 ANTIBODY/ANTIGEN SCREEN W/REFLEX TO HIV [...] Routine 02/16/2025 2:35 PM EST state, incidental US PELVIS TRANSVAGINAL Routine 1:52 PM EST state, incidental from Last 3 Months Results * OB US Nuchal Translucency (03/18/2025 3:33 PM EST) Anatomical Region Laterality Modality Ultrasound 03/18/2025 3:16 PM EST Impressions 03/18/2025 3:55 PM EST The OB Ultrasound you requested has been resulted. Please navigate to the Imaging tab in LifeScribe for review. This message has been generated by the interface. Narrative Procedure Note Preethi Mcguire MD - 03/18/2025 IMPRESSION: The OB Ultrasound you requested has been resulted. Please navigate to theImaging tab in LifeScribe for review. This message has been generated by theinterface. us Renetta Alexis MD IMG OB US PROCEDURES Fin al Result * PANORAMA TEST (03/02/2025 2:05 PM EST) [...] [facility] TRISOMY 18 AGE-BASED RISK TEXT 1,993 (0.05%) 03/09/2025 12:35 PM EST [facility] [...] LABORATORY 22Q11.2 DELETION SYNDROME POPULATION-BASED RISK TEXT 03/09/2025 12:35 PM EST [facility] 22Q11.2 DELETION SYNDROME RISK SCORE TEXT 03/09/2025 12:35 PM EST [facility] FOOTNOTES See [...] sequencing of this test were performed by [facility]., [id number] [place] [address] (CLIA ID [id number]). The data analysis and reporting of this test were performed by [facility] [address]. [address], [place] [address] (CLIA ID [id number]). The performance characteristics of this test were developed by [facility].(CLIA ID [id number]). This test has not been cleared or approved by the U.S. Food and Drug Administration (FDA). These laboratories are regulated under CLIA as qualified to perform high-complexity testing. 2024 [employer]. All Rights Reserved. Please refer to the attached PDF report Reviewed By: Abiel Cao M.D., Ph.D., [facility], Senior Reliner [facility] Change Agent: Yolie Ross, Ph.D., [facility] IF THE ORDERING PROVIDER HAS QUESTIONS OR WISHES TO DISCUSS THE RESULTS, PLEASE CONTACT US AT [phone], option 2. Ask for the NIPT genetic counselor plastic injection mold maker. Blood Venous blood specimen / Unknown Venipuncture / Unknown 03/02/2025 2:05 PM EST 03/02/2025 2:06 PM EST Renetat Alexis MD [facility] ORDERABLES Final Result [facility] [address] [place] [address], * Treponema Pallidum (Syphilis) Antibodies with Reflex to RPR and RPR Titer (Those with NO known Syphilis) (02/16/2025 2:35 PM EST) Pathologist [facility] Syphilis Antibody (IgG+IgM) Nonreactive Nonreactive 02/16/2025 7:39 PM EST [facility] Comment:Nonreactive. No sero logic evidence of syphilis. No follow-up necessary unless clinically indicated (e.g., early syphilis). Blood Venous blood specimen / Unknown Venipuncture / Unknown 02/16/2025 2:35 PM EST 02/16/2025 6:36 PM EST Renetta Alexis MD LAB BLOOD ORDERABLES Fin al Result [facility] [address] [place] [address] * Chlamydia trachomatis DNA by PCR (02/16/2025 2:35 PM EST) Pathologist [facility] Chlamydia trachomatis DNA PCR Result Not Detected Not Detected 02/18/2025 2:42 PM EST [facility] Urine Urine specimen obtained by clean catch procedure / Unknown Non-blood Collection / Unknown 02/16/2025 2:35 PM EST 02/16/2025 6:43 PM EST Narrative [facility] - 02/18/2025 2:42 PM EST This test is performed by the [employer] instrument for Real Time PCR C. trachomatis and N. gonorrhea. This test is FDA approved for use with endocervical, vaginal, and urine specimens. This test is used for clinical purposes. It should not be regarded as invesigational or for research. The [facility] Clinical Microbiology Laboratory is certified under the Clinical Laboratory Improvement Amendments of 1988 (CLIA-88) as qualified to perform high complexity clinical laboratory testing. Renetta Alexis MD LAB MICROBIOLOGY - GENER AL ORDERABLES Final Result Performing Organization Address City/[facility]/ZIP Co de Phone Number [facility] [address] [place] [address] * HIV 1 & 2 Antibody/Antigen Screen (02/16/2025 2:35 PM EST) Pathologist [facility] HIV 1 & 2 Antibody/Antigen Screen Non Reactive Non Reactive 02/16/2025 7:32 PM EST [facility] Comment:Screening for HIV 1 & 2 antibodies, and P24 antigen is NONREACTIVE. No confirmatory testing is required. Blood Venous blood specimen / Unknown Venipuncture / Unknown 02/16/2025 2:35 PM EST 02/16/2025 6:36 PM EST Renetta Alexis MD LAB BLOOD ORDERABLES Fin al Result Performing Organization Address [facility] Co de Phone Number [facility] [address] [place] [address] * Hepatitis C Antibody w/Reflex to HCV Quant PCR (02/16/2025 2:35 PM EST) Pathologist [facility] Hepatitis C Antibody Negative Negative 02/16/2025 7:30 PM EST [facility] Blood Venous blood specimen / Unknown Venipuncture / Unknown 02/16/2025 2:35 PM EST 02/16/2025 6:36 PM EST Renetta Alexis MD LAB BLOOD ORDERABLES Fin al Result Performing Organization Address City/[facility]/ZIP Co de Phone Number [facility] [address] [place] [address] * Drug Abuse Screen, Urine (02/16/2025 2:35 PM EST) Pathologist [facility] Amphetamine Screen Urine Negative Cutoff: 500 ng/mL 02/16/2025 7:17 PM EST [facility] Benzodiazepines Screen Urine Negative Cutoff: 200 ng/mL 02/16/2025 7:17 PM EST [facility] Cannabinoid Screen Urine Negative Cutoff: 50 ng/mL 02/16/2025 7:17 PM EST [facility] Cocaine Screen Urine Negative Cutoff: 300 ng/mL 02/16/2025 7:17 PM EST [facility] Barbiturate Screen Urine Negative Cutoff: 200 ng/mL 02/16/2025 7:17 PM EST [facility] Opiate Screen Urine Negative Cutoff: 300 ng/mL 02/16/2025 7:17 PM EST [facility] Methadone Screen Urine Negative Cutoff: 300 ng/mL 02/16/2025 7:17 PM EST [facility] Buprenorphine Screen Urine Negative Cutoff: 10 ng/mL 02/16/2025 7:17 PM EST [facility] Fentanyl Screen Urine Negative Cutoff: 1 ng/mL 02/16/2025 7:17 PM EST [facility] Oxycodone Screen Urine Negative Cutoff: 100 ng/mL 02/16/2025 7:17 PM EST [facility] Urine Urine specimen obtained by clean catch procedure / Unknown Non-blood Collection / Unknown 02/16/2025 2:35 PM EST 02/16/2025 6:36 PM EST Renetta Alexis MD LAB URINE ORDERABLES Fin al Result [facility] [address] [place] [address] * Neisseria gonorrhea DNA by PCR (02/16/2025 2:35 PM EST) Neisseria gonorrhea DNA PCR Result Not Detected Not Detected. 02/18/2025 2:42 PM EST [facility] Urine Urine specimen obtained by clean catch procedure / Unknown Non-blood Collection / Unknown 02/16/2025 2:35 PM EST 02/16/2025 6:43 PM EST Narrative [facility] - 02/18/2025 2:42 PM EST This test is performed by the [employer] instrument for Real Time PCR C. trachomatis and N. gonorrhea. This test is FDA approved for use with endocervical, vaginal, and urine specimens. This test is used for clinical purposes. It should not be regarded as invesigational or for research. The [facility] Clinical Microbiology Laboratory is certified under the Clinical Laboratory Improvement Amendments of 1988 (CLIA-88) as qualified to perform high complexity clinical laboratory testing. Renetta Alexis MD LAB MICROBIOLOGY - GENER AL ORDERABLES Final Result Performing Organization Address [facility] de Phone Number [facility] [address] [place] [address] * (ABNORMAL) Rubella Antibody IgG (02/16/2025 2:35 PM EST) Rubella Antibody IgG Positive(A ) Negative 02/16/2025 7:58 PM EST [facility] Comment: Rubella IgG Result Interpretation: [...] ORDERABLES Fin al Result Performing Organization Address [facility] de Phone Number [facility] [address] [place] [address] * Hepatitis B Surface Antigen (02/16/2025 2:35 PM EST) Hepatitis B Surf Antigen Negative Negative 02/16/2025 7:39 PM EST [facility] Blood Venous blood specimen / Unknown Venipuncture / Unknown 02/16/2025 2:35 PM EST 02/16/2025 6:36 PM EST Renetta Alexis MD LAB BLOOD ORDERABLES Fin al Result Performing Organization Address [facility] de Phone Number [facility] [address] [place] [address] * (ABNORMAL) CBC W/O Differential (02/16/2025 2:35 PM EST) WBC Count 5.83 3.70 - 10.30 10*3/uL LAB HEMATOLOGY METHOD 02/16/2025 7:00 PM EST [facility] RBC Count 4.24 3.90 - 5.20 10*6/uL LAB HEMATOLOGY METHOD 02/16/2025 7:00 PM EST [facility] HGB 9.5(L) 11.2 - 15.7 g/dL LAB HEMATOLOGY METHOD 02/16/2025 7:00 PM EST [facility] HCT 32.1(L) 34.0 - 45.0 % LAB HEMATOLOGY METHOD 02/16/2025 7:00 PM EST [facility] Platelet Count 258 155 - 369 10*3/uL LAB HEMATOLOGY METHOD 02/16/2025 7:00 PM EST [facility] MCV 76(L) 79 - 98 fL LAB HEMATOLOGY METHOD 02/16/2025 7:00 PM EST [facility] MCH 22.4(L) 26.0 - 32.0 pg LAB HEMATOLOGY METHOD 02/16/2025 7:00 PM EST [facility] MCHC 29.6(L) 30.7 - 35.5 g/dL LAB HEMATOLOGY METHOD 02/16/2025 7:00 PM EST [facility] RDW 18.1(H) 11.5 - 14.5 % LAB HEMATOLOGY METHOD 02/16/2025 7:00 PM EST [facility] MPV 10.5 8.8 - 12.5 fL LAB HEMATOLOGY METHOD 02/16/2025 7:00 PM EST [facility] nRBC 0.0 <=0.0 per 100 WBCs LAB HEMATOLOGY METHOD 02/16/2025 7:00 PM EST [facility] Blood Venous blood specimen / Unknown Venipuncture / Unknown 02/16/2025 2:35 PM EST 02/16/2025 6:48 PM EST us Renetta Alexis MD LAB BLOOD ORDERABLES Fin al Result Performing Organization Address [facility] Co de Phone Number [facility] [address] [place] [address] * Type and Screen (02/16/2025 2:35 PM [...] ORDE RABLES Final Result Performing Organization Address [facility] Phone Number BLOOD BANK [address] [place] [address], [place] * (ABNORMAL) Urine Culture (02/16/2025 2:35 PM EST) Pathologist [facility] Culture 10,000 - 100,000 CFU/mL Streptococcus agalactiae (Beta Hemolytic Streptococcus, Group B)(A) 02/18/2025 9:58 AM EST [facility] Comment: This isolate has been identified using the FDA Approved [employer] [place] System Note: If this patient is and has a penicillin allergy please contact Microbiology [phone] to perform antibiotic susceptibility testing of Clindamycin. [...] AL ORDERABLES Final Result Performing Organization Address [facility] Co de Phone Number [facility] [address] [place] [address] * US Pelvis Transvaginal (02/16/2025 1:52 PM EST) Anatomical Region Laterality Modality Pelvis Ultrasound 02/16/2025 1:57 PM EST Impressions 02/17/2025 11:24 AM EST The OB Ultrasound you requested has been resulted. Please navigate to the Imaging tab in [employer]Scribe for review. This message has been generated by the interface. Narrative Procedure Note Renetta Alexis MD - 02/17/2025 IMPRESSION: The OB Ultrasound you requested has been resulted. Please navigate to theImaging tab in [employer]Scribe for review. This message has been generated by theinterface. us Renetta Alexis MD IMG US PROCEDURES Final Result from Last 3 Months Insurance ANTH Care Teams Safety And Security Officer Relationship Specialty Start Date End Date Dana Haile APRN [address] [facility] [address] [place] [address] PCP - General 09/23/24
--- OUTSIDE RECORDS SUMMARY | 2025-03-30 09:34 | XMS_ITS | Encounter Summary ---
Author Organization Healthcare Address [address] [place] [address] Care Team Providers Care Payroll Examiner Name Role Phone Dana Haile APRN Primary Care Provider Reason for Visit * Reason Onset Date Comments HCN Clinical Concern/Question 01/19/2025 ED FU ARACELI Encounter Details Date Type Department Care Team (Late st Contact Info) Description 01/19/2025 Telephone Obstetrics & Gynecology [address] [place] [address] Renetta Alexis MD [address] [place] [address] HCN Clinical Concern/Question (ED FU ARACELI) Social History Tobacco Use Types Packs/Day Years Used Date Smoking Tobacco: Never Smokeless Tobacco: Never Alcohol Use Standard Drinks/Week Comments Yes 0 (1 standard drink = 0.6 oz pur e alcohol) PHQ-2 Answer Date Recorded Patient Health Questionnaire-2 Score 4 09/26/2024 [place] Depression Scale Answer Date Recorded [place] Depression Scale Total 0 02/20/2024 The thought [...] drink first t enedina in the morning (EYE-SHAKER WASHER) to steady your nerves or to get [...] AM EDT Called and discussed with patient. [facility] ER did not give her fluids, test her urine or swab her for anything. Temp is still over 100. Discussed with Dr. Alexis. Patient is going to [place] ER to be Evaluated instead. Needs IV fluids. * Telephone Encounter - Adenike Trinh - 01/19/2025 8:17 AM EDT Same Day Appt/Overbook Request Reason for Call: Patient took a test 01/17/2025, went to [facility] 01/18/2025 dueto not eating, drinking, vomiting and was told to follow up due to fever and dehydration ARACELI. Provider delivered her last 2 children and prefers to see this provider. Best contact number: [phone] (home) Optimal time of day to reach [...] will receive notification of the communication/outcome via [email or web address]. documented in this encounter Plan of Treatment Upcoming Encounters Date Type Department Care Team (Late st Contact Info) Description 04/15/2025 2:45 PM EST Routine Obstetrics & Gynecology [address] [place] [address] Renetta Alexis MD [address] [place] [address] 05/20/2025 1:45 PM EST Routine Obstetrics & Gynecology [address] [place] [address] Renetta Alexis MD [address] [place] [address] 05/20/2025 1:50 PM EST Appointment [facility] [address] [place] [address] documented as of this encounter Visit Diagnoses [...] documented as of this encounter Care Teams Payroll Examiner Relationship Specialty Start Date End Date Dana Haile APRN [address] [place] [address] PCP - General 09/23/24 documented as of this encounter
--- OUTSIDE RECORDS SUMMARY | 2025-03-30 09:35 | XMS_ITS | Encounter Summary ---
Author Organization Healthcare Address [address] [place] [address] Care Team Providers Care Director Supply Chain Name Role Phone Dana Haile MARILEE Primary Care Provider Reason for Visit * Reason Onset Date Comments HCN - Patient Message 03/18/2025 Encounter Details Date Type Department Care Team (Late st Contact Info) Description 03/18/2025 Telephone Obstetrics & Gynecology [address] [place] [address] Yesenia Valdez, SLAB DEPILER OPERATOR, [facility] [address] [facility] [address] [place] [address] HCN - Patient Message Social History Tobacco Use Types Packs/Day Years Used Date Smoking Tobacco: Never Smokeless Tobacco: Never Alcohol Use Standard Drinks/Week Comments Yes 0 (1 standard drink = 0.6 oz pur e alcohol) PHQ-2 Answer Date Recorded Patient Health Questionnaire-2 Score 6 03/18/2025 [place] Depression Scale Answer Date Recorded [place] Depression Scale Total 0 02/20/2024 The thought [...] drink first t enedina in the morning (EYE-WELDER PLASMA ARC) to steady your nerves or to get [...] * Telephone Encounter - Natalio Anderson - 03/18/2025 9:30 AM EST Called and discussed that we will try to get her seen as close to after that ultrasound that we can. * Telephone Encounter - Barbara Pinedo - 03/18/2025 9:12 AM EST Same Day Appt/Overbook Request Reason for Call: pt has to be at work today she is asking if her doctors appt can be pushed up to 330 or something please Best contact number: [phone] (mobile) Optimal time of day to reach [...] Info) Description 04/15/2025 2:45 PM EST Routine [facility] [address] [place] [address] Renetta Alexis MD [address] [place] [address] 05/20/2025 1:45 PM EST Routine [facility] [address] [place] [address] Renetta Alexis MD [address] [place] [address] 05/20/2025 1:50 PM EST Appointment [facility] [address] [place] [address] documented as of this encounter Visit Diagnoses [...] documented as of this encounter Care Teams Director Supply Chain Relationship Specialty Start Date End Date Dana Haile APRN [address] [place] [id number] PCP - General 09/23/24 documented as of this encounter
--- OUTSIDE RECORDS SUMMARY | 2025-03-30 09:35 | XMS_ITS | Clinical Summary ---
[facility] Organization [facility] Address [address] [place] [address] Care Team Providers Care Rn Building Name Role Phone Bubba Bhatt MD Primary Care Provider [phone] Allergies No known active allergies Medications No [...] ve Non-Reacti ve 05/27/2021 12:20 AM EST [facility] Blood Venipuncture / Unknown 05/26/2021 3:28 PM EST 05/26/2021 3:28 PM EST Narrative [facility] - 05/27/2021 12:20 AM EST Results may be falsely decreased if patient taking Biotin. Taloncolby Paz Zavala [facility] BLOOD ORDERABLES Final Re sult [facility]
[address] [place] [address], * Chlamydia trachomatis, Neisseria gonorrhoeae, PCR w/ confirmation - Urine, Vagina (11/30/2020 2:35 PM EDT) Pathologist [facility] Chlamydia trachomatis, ARANZA Negative Negative 12/03/2020 3:08 PM EDT [facility] Neisseria gonorrhoeae, ARANZA Negative Negative 12/03/2020 3:08 PM EDT [facility] Urine Specimen from vagina / Unknown Collection / Unknown 11/30/2020 2:35 PM EDT 11/30/2020 2:35 PM EDT Narrative [facility] - 12/03/2020 3:08 PM EDT Performed at: [address] [place] [address] [id number] Radio Presenter: Jose Martínez MD, Phone: [phone] Dana Ford MD MICROBIOLOGY - GENERAL ORDERA BLES Final Result [facility] [address] [place] [address], from Last 3 Months or Most Recently Relevant to Health Maintenance Insurance PPO Member Subscriber Plan / Payer (Ef fective 2020-Present) Name:Cornel Harris Relation to Subscriber:Child Name:COY HARRIS Date of :1966 Address: [address] [place] [address] [place] [address] Payer ID:[id number] (NAIC) Type:Not on file Address: [address] [place] [id number] Care Teams Rn Building Relationship Specialty Start Date End Date Bubba Bhatt MD [address] [facility] [address] [place] [address] PCP - General Family Medicine 10/15/18
--- OUTSIDE RECORDS SUMMARY | 2025-03-30 09:35 | XMS_ITS | Patient Health Record ---
Author Organization [facility] Address [address] [place] [address] Care Team Providers Care Entrepreneurship Program Director Name Role Phone Ralph Haile Primary Care Provider RALPH HAILE Unavailable Unavaila Manuel Mercer Unavailable [phone] Vidhi Pemberton Unavailable [phone] Ralph Solano Unavailable [phone] Migration, Provider Unavailable Unavailable Allergies No Known Allergies Results Component Value Reference Range Notes X ray : Hand, Right Reviewed date:07/02/2024 09:13:04 AM Interpretation: Performing Lab: Notes/Report: Rapid Strep Reviewed date:11/28/2024 01:55:25 PM Interpretation:Negative Performing Lab: Notes/Report: Negative Rapid screen Neg Rapid Strep Reviewed date:09/04/2024 04:47:45 PM Interpretation:Negative Performing Lab: Notes/Report: Negative Rapid screen Negative Reason For Referral Referring Provider First Name Grayson Referring Provider Last Name Lonnie Referred Provider Manuel Felix Referral Priority Routine Reason [facility] Diagnosis 1 Severe episode of re current major depressive disorder, without psychotic features (F33.2) Referral Organization [facility] AMANUEL US Referring Provider First Name Ralph Referring Provider Last Name Lazara Referring Provider Speciality Family Pra ctice Referred Organization [facility] Referred Address [address] [facility] [address] [facility], [place],[address], Referred Provider Specialty Behavioral H ealt General Notes Delores Marroquin 2024 10:55:18 AM >sent to [facility]al Health at [facility] Referral Priority Routine Medications Medication SIG (Take, Route, Frequency, Duration) Notes Start Date End Date Status Norelgestromin-Eth Estradiol 150-35 MCG/24HR Patch Weekly as directed Transdermal Acti ve busPIRone HCl 5 MG Tablet 1 tab(s) orall y 2 times a day Active Escitalopram Oxalate 10 MG Tablet 1 tab(s) orally once a day 06/17/2024 Active ARIPiprazole 5 MG Tablet 1 tablet Orally Once a day; Duration: 30 days 09/30/2024 Maulik-Jumana westbrook Social History Tobacco Use: Social History Observation Description Date Details (start date - stop date) Never Smoker NA - NA Social History Social History Social Info Question Answer Notes Tobacco Control (Standard) Tobacco use: Nonsmoker Additional Details Category Social Info Options Details Social History Occupation: Employed Travel outside [place]: no Alcohol: no Sexually active: yes Recreational drug use: no Exercise: yes Walking Home smoke detector use: yes Caffeine: yes frequency: occas ional Problems Problem Type SNOMED Code ICD Code Onset Dates Problem Status W/U Status Risk Notes Problem Chronic rhinitis (88687943) Chronic rhinitis (J31.0) Active confirmed Problem Mixed anxiety and depressive disorder (277889153) Depression with anxiety (F41.8) Active confirmed Problem Severe recurrent major depression without psychotic features (33269346) Severe episode of recurrent major depressive disorder, without psychotic features (F33.2) Active confirmed Vital Signs Heart Rate 68 /min 11/28/2024 Temperature 98.3 degrees Fahrenheit 11/28/2024 Blood pressure diastolic 64 mm Hg 11/28/2024 Height 5ft 3in in 11/28/2024 Blood pressure systolic 100 mm Hg 11/28/2024 Weight 143 lbs 11/28/2024 BMI 25.33 kg/m2 11/28/2024 Encounters Encounter Location Date Provider Diagnosis [facility] [address] [place] [address] 07/05/2024 Provider Migration [facility] [address] [facility] [address] [place] [address] 05/20/2024 Ralph Haile Depression with anxiety F41.8 and Encounter to establish care with new doctor Z76.89 [facility] [address] [facility] [address] [place] [address] 06/17/2024 Ralph Haile Depression with anxiety F41.8 [facility] [address] [facility] [address] [place] [address] 06/23/2024 Manuel Kaitysridhar Infective pharyngitis J02.9 ; Chronic rhinitis J31.0 and Abdominal cramps R10.9 [facility] [address] [facility] [address] [place] [address] 06/30/2024 Ralph Haile Right hand pain M79.641 and Acute traumatic pain G89.11 [facility] [address] [facility] [address] [place] [address] 09/02/2024 Vidhi McNees Depression with anxiety F41.8 [facility] [address] [facility] [address] [place] [address] 09/04/2024 Ralph Salgadoell Sore throat J02.9 and Viral URI J06.9 [facility] [address] [facility] [address] [place] [address] 09/30/2024 Ralph Haile Severe episode of recurrent major depressive disorder, without psychotic features F33.2 and Nonsuicidal self-harm R45.88 [facility] [address] [facility] [address] [place] [address] 10/07/2024 Ralph Haile Severe episode of recurrent major depressive disorder, without psychotic features F33.2 and Nonsuicidal self-harm R45.88 [facility] [address] [address] 11/28/2024 Ralph Haile Sore throat J02.9 [facility] [address] [facility] [address] [place] [address] 05/12/2024 Manuel Felix [facility] [address] [facility] [address] [place] [address] 07/01/2024 Ralph Haile Assessments Encounter Date Diagnosis [...] Insured Coverage Start Date Coverage End Date [facility] [address] [place] [address] [id number] Cornel Espinoza Self - patient is the insured Medical (General) History Medical History History ICD Code anxiety depression anemia Bicornuate uterus Surgical History Surgery Date(Month/Year) C section Extraction of [place] Teeth Vaginal with Breech Hospitalization History Reason Date(Month/Year) [facility] Jan 07, 2024 [facility] Dec
--- OUTSIDE RECORDS SUMMARY | 2025-03-30 09:35 | XMS_ITS | Encounter Summary ---
Author Organization Healthcare Address [address] [place] [address] Care Team Providers Care Presiding Steward Name Role Phone Dana Haile APRN Primary Care Provider [phone] Encounter Details Date Type Department Care Team (Latest Contact Info) Description 03/18/2025 Travel Social History Tobacco Use Types Packs/Day Years Used Date Smoking Tobacco: Never Smokeless Tobacco: Never Alcohol Use Standard Drinks/Week Comments Yes 0 (1 standard drink = 0.6 oz pur e alcohol) PHQ-2 Answer Date Recorded Patient Health Questionnaire-2 Score 6 03/18/2025 [place] Depression Scale Answer Date Recorded [place] Depression Scale Total 0 02/20/2024 The [...] drink first t [place] in the morning (EYE-WATER FILTER CLEANER) to steady your nerves or to get [...] someone who was sick? No / Unsure 03/18/2025 2:51 PM EST Amy Prado Do you have any of the following new or worsening symptoms? None of these 03/18/2025 2:51 PM EST Amy Prado Z * Travel Screening Question Answer Date of Assessment Author Have you traveled internatio blaze or domestically in the last month? No 03/18/2025 2:51 PM EST Amy Prado Z documented as of this encounter Mental Status * Communicable Disease Screening Question Answer Entry Date Author Have you been in contact wit h someone who was sick? No / Unsure 03/18/2025 2:51 PM EST Elmer Pradoia Z Do you have any of the following new or worsening symptoms? None of these 03/18/2025 2:51 PM EST Janay Pradoricia Z * Travel Screening Question Answer Entry Date Author Have you traveled internatio blaze or domestically in the last month? No 03/18/2025 2:51 PM Amy Riggins documented in this encounter Plan of Treatment Upcoming Encounters Date Type Department Care Team (Late st Contact Info) Description 04/15/2025 2:45 PM EST Routine Obstetrics & Gynecology [address] [place] [address] Renetta Alexis MD [address] [place] [address] 05/20/2025 1:45 PM EST Routine Obstetrics & Gynecology [address] [place] [address] Renetta Alexis MD [address] [place] [address] 05/20/2025 1:50 PM EST Appointment [facility] Ul[facility] [address] [place] [address] documented as of this encounter Visit Diagnoses [...] documented as of this encounter Care Teams Presiding Steward Relationship Specialty Start Date End Date Dana Haile APRN [address] [facility] [address] [address] PCP - General 09/23/24 documented as of this encounter
--- OUTSIDE RECORDS SUMMARY | 2025-03-30 09:35 | XMS_ITS | Encounter Summary ---
Author Organization Healthcare Address [address] [place] [address] Care Team Providers Care Mail Deliverer Name Role Phone Dana Haile APRN Primary Care Provider [phone] Encounter Details Date Type Department Care Team (Late st Contact Info) Description 03/19/2025 Telephone Obstetrics & Gynecology [address] [place] [address] Renetta Alexis MD [address] [place] [address] Social History Tobacco Use Types Packs/Day Years Used Date Smoking Tobacco: Never Smokeless Tobacco: Never Alcohol Use Standard Drinks/Week Comments Yes 0 (1 standard drink = 0.6 oz pur e alcohol) PHQ-2 Answer Date Recorded Patient Health Questionnaire-2 Score 6 03/18/2025 [place] Depression Scale Answer Date Recorded [place] Depression Scale Total 0 02/20/2024 The thought [...] drink first t [place] in the morning (EYE-NEONATAL NURSE) to steady your nerves or to get [...] * Telephone Encounter - Anamaria Novoa - 03/19/2025 2:51 PM EST Clinical Concern/Question Reason for Call: pt needs a call back to r.s all 3 appts to between 8am -9am. Best contact number: [phone] (mobile) Optimal time of day to reach caller: ANYTIME Additional comments/information from caller: None Note: Please do not reply to this message. Follow-up communication and further actions as a result of this message need to be communicated with the patient directly, if the patient is not active onMyChart. If the patient is active on MyChart, they will receive notification of the communication/outcome via [employer]. documented in this encounter Plan of Treatment Upcoming Encounters Date Type Department Care Team (Late st Contact Info) Description 04/15/2025 2:45 PM EST Routine Obstetrics & Gynecology [address] [place] [address] Renetta Alexis MD [address] [place] [address] 05/20/2025 1:45 PM EST Routine Obstetrics & Gynecology [address] [place] [address] Renetta Alexis MD [address] [place] [address] 05/20/2025 1:50 PM EST Appointment [facility] Ultrasound [address] [place] [address] documented as of this encounter Visit Diagnoses [...] documented as of this encounter Care Teams Mail Deliverer Relationship Specialty Start Date End Date Dana Haile APRN [address] [place] [address] PCP - General 09/23/24 documented as of this encounter
--- OUTSIDE RECORDS SUMMARY | 2025-03-30 09:35 | XMS_ITS | Encounter Summary ---
Author Organization Healthcare Address [address] [place] [address] Care Team Providers Care Residential Pest Control Technician Name Role Phone Dana Haile APRN Primary Care Provider [phone] Encounter Details Date Type Department Care Team (Latest Contact Info) Description 02/16/2025 Travel Social History Tobacco Use Types Packs/Day Years Used Date Smoking Tobacco: Never Smokeless Tobacco: Never Alcohol Use Standard Drinks/Week Comments Yes 0 (1 standard drink = 0.6 oz pur e alcohol) PHQ-2 Answer Date Recorded Patient Health Questionnaire-2 Score 4 09/26/2024 [place] Depression Scale Answer Date Recorded [place] Depression Scale Total 0 02/20/2024 The thought [...] drink first t [place] in the morning (EYE-DESKTOP SUPPORT SPECIALIST) to steady your nerves or to get [...] someone who was sick? No / Unsure 02/16/2025 1:35 PM Ele Murdock Do you have any of the following new or worsening symptoms? None of these 02/16/2025 1:35 PM Ele Murdock * Travel Screening Question Answer Date of Assessment Author Have you traveled internatio blaze or domestically in the last month? No 02/16/2025 1:35 PM Ele Hernandez documented as of this encounter Mental Status * Communicable Disease Screening Question Answer Entry Date Author Have you been in contact wit h someone who was sick? No / Unsure 02/16/2025 1:35 PM Ele Murdock Do you have any of the following new or worsening symptoms? None of these 02/16/2025 1:35 PM Ele Murdock * Travel Screening Question Answer Entry Date Author Have you traveled internatio blaze or domestically in the last month? No 02/16/2025 1:35 PM Ele Milan documented in this encounter Plan of Treatment Upcoming Encounters Date Type Department Care Team (Late st Contact Info) Description 04/15/2025 2:45 PM EST Routine Obstetrics & Gynecology [address] [place] [address] Renetta Alexis MD [address] [place] [address] 05/20/2025 1:45 PM EST Routine Obstetrics & Gynecology [address] [place] [address] Renetta Alexis MD [address] [place] [address] 05/20/2025 1:50 PM EST Appointment [facility] [address] [place] [address] documented as of this encounter Visit Diagnoses [...] documented as of this encounter Care Teams Residential Pest Control Technician Relationship Specialty Start Date End Date Dana Haile APRN [address] [facility] [address] [address] PCP - General 09/23/24 documented as of this encounter
== END 2025-03-28 23:59 | disposition home or self-care (01) ==
LOC: LAB.DROPOF 03-30 09:23
PROVIDERS: PCP Nurse Practitioner Family; Visit Provider Student in an Organized Health Care Education/Training Program
DX: R50.9 Fever, unspecified (principal)
CPT/HCPCS: 87631